=== PATIENT | female | born 1985 | race Caucasian/White ===

== ENCOUNTER 2017-07-10 19:12 | Emergency (ER) | payer OTHER ==
[~2017-07-10] VITALS: Ht 177.8 cm; Wt 101.0 kg
[~2017-07-10 19:12] MED LIST: BCPILLS PO; BUPR150T5 PO; LEVO75TA25 PO
[2017-07-10 19:19] VITALS: TEMP 37.1; Ht 177.8 cm; Wt 101.0 kg
[2017-07-10] MEDS ORDERED: SODIUM CHLORIDE 0.9% 1000ML 1,000 ML IV STA (19:47)
[2017-07-10 19:52] VITALS: O2SAT 96
[2017-07-10 20:00] LABS: BASO % 0.2 %; BASO ABS # 0.02 K/uL (0-0.2); COMPLETE YES; EOS % 0.5 %; HEMATOCRIT 41.6 % (37-47); IG% 0.4 %; LYMPH % 29.3 %; LYMPH ABS # 2.47 K/uL (1.2-3.4); MEAN CELL VOLUME 97.9 fL (80-100); MEAN CORPUSCULAR HEMOGLOBIN 30.6 pg (25-34); MEAN CORPUSCULAR HGB CONC 31.3 g/dl (32-36); MEAN PLATELET VOLUME 8.8 fL (7.4-10.4); MONO % 6.8 %; NEUT % 62.8 %; PLATELET COUNT 271 K/uL (130-400); RED BLOOD COUNT 4.25 M/uL (4.2-5.4); WHITE BLOOD COUNT 8.42 K/uL (4.8-10.8)
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
[2017-07-10 20:12] LABS: BUN/CREATININE RATIO 13.4 (10-20); CALCIUM 8.9 mg/dl (8.5-10.1); CREATININE 1.1 mg/dl (0.60-1.20); MAGNESIUM 2.1 mg/dl (1.8-2.4); POTASSIUM 3.6 mmol/L (3.5-5.1)
[2017-07-10 20:13] LABS: INR 0.9 (0.9-1.1); PARTIAL THROMBOPLASTIN RATIO 0.9; PROTHROMBIN TIME (PATIENT) 10.1 SECONDS (9.0-12.0)
--- NOTE | 2017-07-10 20:18 | DIAGNOSTIC IMAGING REPORT ---
CT HEAD WITHOUT CONTRAST (CT) CLINICAL HISTORY: Seizure COMPARISON STUDY: No previous studies for comparison. TECHNIQUE: Axial CT of the brain is performed from the vertex to the skull base. IV contrast was not administered for this examination. A dose lowering technique was utilized adhering to the principles of ALARA. CT DOSE: 537.48 mGy.cm FINDINGS: No intra or extra-axial mass lesions are visualized. There is no CT evidence of acute cortical infarction. There is no evidence of midline shift. There is no acute hemorrhage. No calvarial fractures are visualized. There are patchy white matter hypodensities likely on a small vessel basis. There is no evidence of pathologic ventricular dilatation. There is no evidence of acute sinusitis There are mildly prominent sulci in the frontal region as well as within the cerebellum. Minor early atrophic changes cannot be excluded. IMPRESSION: No acute intracranial findings Electronically signed by: Michael Malik M.D. 07/10/2017 8:16 PM Dictated Date/Time: 07/10/2017 8:15 PM
[2017-07-10 20:28] LABS: PHOSPHORUS 2.6 mg/dl (2.5-4.9); THYROID STIMULATING HORMONE 13.3 uIu/ml (0.300-4.500)
[2017-07-10 20:39] VITALS: BP 135/94; O2SAT 96
[2017-07-10 20:55] LABS: URINE APPEARANCE CLEAR (CLEAR); URINE BILIRUBIN NEG (NEG); URINE COLOR YELLOW; URINE EPITHELIAL CELL AUTO >30 /lpf (0-5); URINE NITRITE NEG (NEG); URINE PH 5.5 (4.5-7.5); UROBILINOGEN NEG (NEG)
[2017-07-10 20:56] LABS: MANUAL MICROSCOPIC REQUIRED? NO; REVIEW REQ? NO
[2017-07-10 21:06] VITALS: PULSE 79
[2017-08-07] MEDS ORDERED: AMT50 PO (15:16)
== END 2017-07-10 21:10 | disposition home or self-care (01) ==
LOC: EDBD 19:12 → C.EDA 19:14
DX: R56.9 Unspecified convulsions (principal); C41.9 Malignant neoplasm of bone and articular cartilage, unspecified; E05.90 Thyrotoxicosis, unspecified without thyrotoxic crisis or storm; Z90.89 Acquired absence of other organs; Z98.890 Other specified postprocedural states; Z87.891 Personal history of nicotine dependence; Z79.899 Other long term (current) drug therapy; G56.82 Other specified mononeuropathies of left upper limb; F32.9 Major depressive disorder, single episode, unspecified; F41.9 Anxiety disorder, unspecified; F10.10 Alcohol abuse, uncomplicated

== ENCOUNTER 2017-10-24 01:13 | Emergency (ER) | payer OTHER ==
[~2017-10-24] VITALS: Ht 177.8 cm; Wt 102.3 kg
[~2017-10-24 01:13] MED LIST changes: +DULO-24 PO
[2017-10-24 01:16] VITALS: TEMP 36.7; Ht 177.8 cm; Wt 102.3 kg
[2017-10-24] MEDS ORDERED: ONDANSETRON INJ 2 MG/ML 2 ML VIAL IV STA ×2 (01:43→03:00)
[2017-10-24] MEDS ORDERED: SODIUM CHLORIDE 0.9% 1000ML 1,000 ML IV STA ×2 (01:43→03:06)
--- NOTE | 2017-10-24 02:02 | EMERGENCY ROOM VISIT NOTE ---
History First contact with patient: : Chief Complaint: VOMITING Stated Complaint: VOMITING,DIARRHEA - UNDERGOING CHEMO History of Present Illness The patient is a 32 year old female who presents to the Emergency Room with complaints of nausea, vomiting and diarrhea. The patient reports she has had vomiting and diarrhea for the past 2 days. She has a history of Quinn sarcoma and currently is receiving chemotherapy. She states she received chemotherapy last week, and the week following her treatment is typically when she becomes ill. She has been unable to keep anything down to eat or drink. She denies any abdominal pain. She denies any sore throat, cough, nasal congestion or fevers. Her oncologist is located in [place]. She does report she has some Compazine at home which she tried but did not help her nausea. Review of Systems A complete 10 point review of systems was reviewed with the patient with pertinent positives and negatives as per history of present illness. All else were negative. Past Medical/Surgical History Medical Problems: (1) Quinn's sarcoma of bone (2) Left Hand Surgery (3) Lung biopsy (4) Tonsillectomy Social History Smoking Status: Former Smoker Alcohol Use: none Marital Status: single Housing Status: lives with significant other Occupation Status: employed Current/Historical Medications Scheduled Duloxetine Hcl (Cymbalta), 60 MG PO DAILY Irinotecan Hcl (Irinotecan), IV UD Levonorgestrel & Eth Estradiol (Falmina), 1 TAB PO DAILY Levothyroxine Sodium (Levothyroxine Sodium), 88 MCG PO DAILY Ondasetron Odt (Zofran Odt), 4 MG SL Q6H Temozolomide (Temozolomide), 200 MG PO DAILY X 5DAYS/UD Vincristine Sulfate (Vincristine Sulfate), IV UD Scheduled PRN Benzonatate (Tessalon Perles), 200 MG PO Q8 PRN for Cough Diphenoxylate/Atropine (Lomotil), 2 TAB PO Q4H PRN for Diarrhea Loperamide HCl (Loperamide HCl), 2 MG PO Q4H PRN for Diarrhea Oxycodone Ir (Roxicodone Ir), 1-2 TAB PO Q6H PRN for Severe Pain Physical Exam Vital Signs Date Time Temp Pulse Resp B/P (MAP) Pulse Ox O2 Delivery O2 Flow Rate FiO2 10/24/17 05:59 82 16 116/73 98 10/24/17 04:49 90 16 151/81 97 Room Air 12/29/17 02:59 82 20 111/74 96 Room Air 10/24/17 01:16 36.7 104 18 134/76 97 Room Air Physical Exam VITALS: Vitals are noted on the nurse's note and reviewed by myself. Vital signs stable. GENERAL: This is a 32-year-old female, in no acute distress, nondiaphoretic, well-developed well-nourished. SKIN: The skin was without rashes. EARS: External auditory canals clear, tympanic membranes pearly kumar without erythema or effusion bilaterally. EYES: Pupils equal round and reactive to light and accommodation. MOUTH: Mucous membranes moist. Tonsils are not enlarged. Pharynx without erythema or exudate. HEART: Regular rate and rhythm without murmurs gallops or rubs. LUNGS: Clear to auscultation bilaterally without wheezes, rales or rhonchi. No retractions or accessory muscle use. ABDOMEN: Positive bowel sounds x 4. Soft, nontender to palpation. NEURO: Patient was alert and oriented to person place and time. Medical Decision & Procedures Laboratory Results 10/24/17 02:10 Red Blood Count 3.92, Mean Corpuscular Volume 91.6, Mean Corpuscular Hemoglobin 31.6, Mean Corpuscular Hemoglobin Concent 34.5, Mean Platelet Volume 8.8, Neutrophils (%) (Auto) 45.7, Lymphocytes (%) (Auto) 39.0, Monocytes (%) (Auto) 9.8, Eosinophils (%) (Auto) 5.5, Basophils (%) (Auto) 0.0, Neutrophils # (Auto) 1.16, Lymphocytes # (Auto) 0.99, Monocytes # (Auto) 0.25, Eosinophils # (Auto) 0.14, Basophils # (Auto) 0.00 10/24/17 02:10 Test 10/24/17 02:10 10/24/17 02:20 10/24/17 03:00 White Blood Count 2.54 K/uL (4.8-10.8) Red Blood Count 3.92 M/uL (4.2-5.4) Hemoglobin 12.4 g/dL (12.0-16.0) Hematocrit 35.9 % (37-47) Mean Corpuscular Volume 91.6 fL (80-100) Mean Corpuscular Hemoglobin 31.6 pg (25-34) Mean Corpuscular Hemoglobin Concent 34.5 g/dl (32-36) Platelet Count 185 K/uL (130-400) Mean Platelet Volume 8.8 fL (7.4-10.4) Neutrophils (%) (Auto) 45.7 % Lymphocytes (%) (Auto) 39.0 % Monocytes (%) (Auto) 9.8 % Eosinophils (%) (Auto) 5.5 % Basophils (%) (Auto) 0.0 % Neutrophils # (Auto) 1.16 K/uL (1.4-6.5) Lymphocytes # (Auto) 0.99 K/uL (1.2-3.4) Monocytes # (Auto) 0.25 K/uL (0.11-0.59) Eosinophils # (Auto) 0.14 K/uL (0-0.5) Basophils # (Auto) 0.00 K/uL (0-0.2) RDW Standard Deviation 42.2 fL (36.4-46.3) RDW Coefficient of Variation 12.8 % (11.5-14.5) Immature Granulocyte % (Auto) 0.0 % Immature Granulocyte # (Auto) 0.00 K/uL (0.00-0.02) Anion Gap 7.0 mmol/L (3-11) Est Creatinine Clear Calc Drug Dose 131.5 ml/min Estimated GFR () 113.0 Estimated GFR (Non- 97.5 BUN/Creatinine Ratio 6.8 (10-20) Calcium Level 8.9 mg/dl (8.5-10.1) Total Bilirubin 0.4 mg/dl (0.2-1) Aspartate Amino Transf (AST/SGOT) 53 U/L (15-37) Alanine Aminotransferase (ALT/SGPT) 115 U/L (12-78) Alkaline Phosphatase 119 U/L (45-117) Total Protein 7.4 gm/dl (6.4-8.2) Albumin 3.8 gm/dl (3.4-5.0) Globulin 3.6 gm/dl (2.5-4.0) Albumin/Globulin Ratio 1.1 (0.9-2) Lipase 88 U/L (73-393) Urine Color DK YELLOW Urine Appearance CLOUDY (CLEAR) Urine pH 5.0 (4.5-7.5) Urine Specific [place] 1.029 (1.000-1.030) Urine Protein TRACE (NEG) Urine Glucose (UA) NEG (NEG) Urine Ketones 3+ (NEG) Urine Occult Blood 3+ (NEG) Urine Nitrite NEG (NEG) Urine Bilirubin NEG (NEG) Urine Urobilinogen NEG (NEG) Urine Leukocyte Esterase NEG (NEG) Urine WBC (Auto) 1-5 /hpf (0-5) Urine RBC (Auto) 0-4 /hpf (0-4) Urine Hyaline Casts (Auto) 0 /lpf (0-5) Urine Epithelial Cells (Auto) >30 /lpf (0-5) Urine Bacteria (Auto) 1+ (NEG) Urine Crystals CALCIUM OXALATE (NONE Urine Mucus PRESENT (NONE PRSENT) Urine Test NEG (NEG) Influenza Type A Antigen Neg for Influ A (NEG) Influenza Type B Antigen Neg for Influ B (NEG) Medications Administered Medications (Trade) Dose Ordered Sig/Emily Route Start Time Stop Time Status Last Admin Dose Admin Sodium Chloride 1,000 ml @ 999 mls/hr Q1H1M STAT IV 10/24/17 01:43 10/24/17 02:43 DC 10/24/17 02:16 999 MLS/HR Ondansetron HCl (Zofran Inj) 4 mg NOW STAT IV 10/24/17 01:43 10/24/17 01:44 DC 10/24/17 02:16 4 MG Ondansetron HCl (Zofran Inj) 4 mg NOW STAT IV 10/24/17 03:00 10/24/17 03:01 DC 10/24/17 03:04 4 MG Sodium Chloride 1,000 ml @ 999 mls/hr Q1H1M STAT IV 10/24/17 03:06 10/24/17 04:06 DC 10/24/17 03:39 999 MLS/HR Prochlorperazine Edisylate (Compazine Inj) 10 mg NOW STAT IV 10/24/17 03:41 10/24/17 03:42 DC 10/24/17 03:52 10 MG Lorazepam (Ativan Inj) 1 mg NOW STAT IV 10/24/17 04:56 10/24/17 04:57 DC 10/24/17 05:02 1 MG ED Course The patient was evaluated as above. Labs were drawn and IV access was obtained. Patient was medicated with 2 L NSS and 4 mg Zofran. Patient was medicated with 4 mg Zofran. Patient was medicated with 10 mg Compazine. Patient was evaluated and was able to tolerate some sips of water, but remained nauseous. 1 mg Ativan was ordered. Patient was reevaluated and felt much better. She was ready for discharge. Discharge instructions were reviewed with the patient. The patient verbalized understanding of my assessment and treatment plan and was discharged home in good condition. Medical Decision Differential diagnosis includes gastroenteritis, chemotherapy side effects, bowel obstruction, C. difficile diarrhea, among others. The patient is a 32-year-old female with PMHx Quinn's sarcoma currently on chemotherapy who presents today complaining of vomiting and diarrhea. Labs revealed slight leukopenia and mild elevation of LFTs. Patient did have a copy of outside labs and these findings appear to be baseline. Patient has no tenderness on abdominal exam.m She is afebrile. Symptoms may be due to side effects of chemotherapy or a viral gastroenteritis. She was treated with multiple rounds of antiemetics with relief of symptoms. She was hydrated with 2 L NSS. She will follow up with her oncologist and return for any worsening or new/concerning symptoms. She verbalized her understand and was discharged home in good condition. The patient was independently evaluated by Dr. Pandya, ED attending physician, who agreed with my assessment and treatment plan. Medication Reconcilliation Current Medication List: was personally reviewed by me Blood Pressure Screening Patient's blood pressure: Normal blood pressure Impression Primary Impression: Nausea, vomiting, and diarrhea Departure Information Dispostion Home / Self-Care Condition GOOD Prescriptions Ondasetron Odt (ZOFRAN ODT) 4 Mg Tab 4 MG SL Q6H for Nausea, #20 TAB Prov: Hilary Reed ., JASON 10/24/17 Referrals Dandy Palmer, D.O. (PCP) Patient Instructions My [facility] Additional Instructions You have been prescribed Zofran to be used for any nausea or vomiting. Take as prescribed. Continue to take small sips of fluids to stay hydrated. Call your oncologist today to schedule follow-up/repeat labs. Return to the emergency department with worsening vomiting, fevers, or any other new/concerning symptoms.
[2017-10-24 02:25] LABS: EOS % 5.5 %; EOS ABS # 0.14 K/uL (0-0.5); HEMATOCRIT 35.9 % (37-47); HEMOGLOBIN 12.4 g/dL (12.0-16.0); LYMPH ABS # 0.99 K/uL (1.2-3.4); MEAN CELL VOLUME 91.6 fL (80-100); MEAN CORPUSCULAR HEMOGLOBIN 31.6 pg (25-34); MEAN CORPUSCULAR HGB CONC 34.5 g/dl (32-36); MEAN PLATELET VOLUME 8.8 fL (7.4-10.4); MONO % 9.8 %; MONO ABS # 0.25 K/uL (0.11-0.59); NEUT % 45.7 %; NEUT ABS # 1.16 K/uL (1.4-6.5); PLATELET COUNT 185 K/uL (130-400); RED CELL DISTRIBUTION WIDTH CV 12.8 % (11.5-14.5); RED CELL DISTRIBUTION WIDTH SD 42.2 fL (36.4-46.3); WHITE BLOOD COUNT 2.54 K/uL (4.8-10.8)
[2017-10-24] MEDS ORDERED: DULO60CA44 PO (02:30)
[2017-10-24] MEDS ORDERED: BENZ100C84 PO (02:32)
[2017-10-24] MEDS ORDERED: OXYC-90 PO (02:33)
[2017-10-24] MEDS ORDERED: LEVO88TA3 PO (02:34)
[2017-10-24] MEDS ORDERED: DIPH-416 PO (02:36)
[2017-10-24] MEDS ORDERED: TEMO1CAP17 PO (02:38)
[2017-10-24] MEDS ORDERED: [UNRECOGNIZED DRUG - CODE] IV (02:40)
[2017-10-24] MEDS ORDERED: VNCI1 IV (02:42)
[2017-10-24] MEDS ORDERED: IMD2 PO (02:44)
[2017-10-24] MEDS ORDERED: LEVO-223 PO (02:46)
[2017-10-24 02:48] LABS: ALBUMIN 3.8 gm/dl (3.4-5.0); CALCIUM 8.9 mg/dl (8.5-10.1); CREATININE 0.81 mg/dl (0.60-1.20); POTASSIUM 3.2 mmol/L (3.5-5.1)
[2017-10-24 02:51] LABS: TOTAL PROTEIN 7.4 gm/dl (6.4-8.2)
[2017-10-24 03:35] LABS: INFLUENZA B ANTIGEN Neg for Influ B (NEG)
[2017-10-24] MEDS ORDERED: PROCHLORPERAZINE 5 MG/ML 2 ML VIAL IV STA (03:41)
[2017-10-24] MEDS ORDERED: LORAZEPAM 2 MG/ML 1 ML VIAL IV STA (04:56)
[2017-10-24] MEDS ORDERED: ONDA4TAB10 SL (05:42)
--- NOTE | 2017-10-24 05:43 | EMERGENCY ROOM VISIT NOTE ---
ED Visit Note First contact with patient: 01:29 I have personally seen and evaluated the patient with the PA. I agree with the diagnosis and management decisions and have been personally involved in the case. Please see Hilary Reed PA-C's notes for further details of the history, physical and visit.
[2017-10-24 05:59] VITALS: BP 116/73; PULSE 82; O2SAT 98
[2017-11-18] MEDS ORDERED: PROC10TA PO (13:26)
[2017-11-20] MEDS ORDERED: CEFP200T14 PO (10:32)
[2017-11-20] MEDS ORDERED: AZIT500T PO (10:32)
[2017-11-20] MEDS ORDERED: DXM/4 PO ×2 (10:32→10:51)
[2017-11-20] MEDS ORDERED: CEFD300C2 PO (10:51)
[2017-11-27] MEDS ORDERED: OXYC-90 PO (13:18)
[2018-01-15] MEDS ORDERED: RIVA1TAB4 PO ×2 (09:59)
[2018-01-15] MEDS ORDERED: CYCL10TA6 PO (10:01)
[2018-01-16] MEDS ORDERED: LEVO1TAB33 PO (13:44)
[2018-01-29] MEDS ORDERED: HYDR2TAB48 PO (11:46)
[2018-01-29] MEDS ORDERED: OXYC-90 PO (17:12)
[2018-02-27] MEDS ORDERED: CEFA500C2 PO (09:59)
== END 2017-10-24 06:01 | disposition home or self-care (01) ==
LOC: C.EDB 01:15
DX: R11.2 Nausea with vomiting, unspecified (principal); R19.7 Diarrhea, unspecified; D16.9 Benign neoplasm of bone and articular cartilage, unspecified; Z87.891 Personal history of nicotine dependence

== ENCOUNTER 2017-11-18 10:56 | Inpatient (IN) | payer OTHER ==
[~2017-11-18] VITALS: Ht 177.8 cm; Wt 100.7 kg
[~2017-11-18 10:56] MED LIST changes: -BCPILLS PO; +BENZ100C84 PO; -BUPR150T5 PO; +DIPH-416 PO; -DULO-24 PO; +DULO60CA44 PO; +IMD2 PO; +LEVO-223 PO; -LEVO75TA25 PO; +LEVO88TA3 PO; +ONDA4TAB10 SL; +OXYC1TAB3 PO; +TEMO1CAP17 PO; +VNCI1 IV; +[UNRECOGNIZED DRUG - CODE] IV
[2017-11-18] MEDS ORDERED: SODIUM CHLORIDE 0.9% 1000ML 1,000 ML IV STA (12:10)
[2017-11-18] MEDS ORDERED: METHYLPREDNISOLONE 125 MG VIAL IV STA (12:10)
[2017-11-18] MEDS ORDERED: ALBUT/IPRATROP 3MG/0.5MG NEB 3 ML VIAL INH STA ×2 (12:10→12:56)
--- NOTE | 2017-11-18 12:27 | EMERGENCY ROOM VISIT NOTE ---
History Report prepared by Skyler: Charles Edwards Under the Supervision of: Dr. Brett Turner M.D. First contact with patient: 12:04 Chief Complaint: FLU LIKE SX Stated Complaint: FLU SX, COUGH,FEVER,SOB,WEAKNESS SENT FROM History of Present Illness The patient is a 32 year old female who presents to the Emergency Room with complaints of worsening flu like symptoms for the past five days. The patient notes that she also has body aches and is sore to the touch. She notes that yesterday and today she was wheezing, and she states that she visited [facility] internal medicine today, and they gave her a breathing treatment and was put on oxygen because her oxygen saturation was low mid 80s on RA, and she is not on oxygen at home. She is additionally complaining of fever up to 100.8 this morning, weakness, and shortness of breath. The patient has a history of Quinn Sarcoma, and she had her last treatment of chemo from November 03-, and she is getting more next week. The patient denies any abdominal pain, nausea, vomiting, loss of consciousness, pain with urination, history of asthma, and using any blood thinners. She notes that she does have some diarrhea due to the chemotherapy. She is currently on vincristine, 10 acetazolamide, and irinotecan. The patient's CBC on the showed a hemoglobin of 12.2, white blood cell count of 12.9, hematocrit of 36.3, platelet level of 169, metabolic profile within normal limits, and potassium of 3.3. Source of History: patient Onset: five days ago Position: other (global) Quality: other (flu like symptoms) Timing: worsening Associated Symptoms: + fevers, + cough, No LOC, No nausea, No vomiting, No abdominal pain, No urinary symptoms Note: Associated symptoms: Body aches Review of Systems See HPI for pertinent positives and negatives. A total of ten systems were reviewed and were otherwise negative. Past Medical & Surgical Medical Problems: (1) Quinn's sarcoma of bone (2) Fever (3) HYPOXIA (4) Left Hand Surgery (5) Lung biopsy (6) Tonsillectomy Social History Smoking Status: Former Smoker Alcohol Use: none Marital Status: single Housing Status: lives with significant other Occupation Status: employed Current/Historical Medications Scheduled Duloxetine Hcl (Cymbalta), 60 MG PO DAILY Irinotecan Hcl (Irinotecan), IV UD Levonorgestrel & Eth Estradiol (Falmina), 1 TAB PO DAILY Levothyroxine Sodium (Levothyroxine Sodium), 88 MCG PO DAILY Ondasetron Odt (Zofran Odt), 4 MG SL Q6H Temozolomide (Temozolomide), 200 MG PO DAILY X 5DAYS/UD Vincristine Sulfate (Vincristine Sulfate), IV UD Scheduled PRN Benzonatate (Tessalon Perles), 200 MG PO Q8 PRN for Cough Diphenoxylate/Atropine (Lomotil), 2 TAB PO Q4H PRN for Diarrhea Loperamide HCl (Loperamide HCl), 2 MG PO Q4H PRN for Diarrhea Prochlorperazine Maleate (Compazine), 10 MG PO Q4H PRN for Nausea Allergies Coded Allergies: Sulfa Antibiotics (Verified Allergy, Unknown, UNKNOWN, 11/18/17) Physical Exam Vital Signs Date Time Temp Pulse Resp B/P (MAP) Pulse Ox O2 Delivery O2 Flow Rate FiO2 11/18/17 18:21 107 20 142/73 97 Nasal Cannula 4.0 11/18/17 17:04 104 20 105/70 95 Nasal Cannula 4.0 11/18/17 16:31 104 11/18/17 13:34 36.7 114 20 129/75 93 Nasal Cannula 2.0 11/18/17 13:05 84 Room Air 11/18/17 12:27 105 11/18/17 12:20 88 Room Air 11/18/17 11:13 37.3 123 18 121/68 95 Physical Exam Physical Exam GENERAL: She is oriented to person, place, and time. She appears well- developed and well-nourished. She does not appear distressed. ____ HENT: Exam performed. Head: Normocephalic and atraumatic. Right Ear: External ear normal. No mastoid tenderness. Left Ear: External ear normal. No mastoid tenderness. Mouth/Throat: The oropharynx is clear and moist. No trismus in the jaw. No dental abscesses or uvula swelling. No oropharyngeal exudate or tonsillar abscesses. ____ EYES: Conjunctivae and EOM are normal. Pupils are equal, round, and reactive to light. Right eye exhibits no discharge. Left eye exhibits no discharge. No scleral icterus. ____ NECK: Normal range of motion. Neck supple. No JVD present. No spinous process tenderness present. No carotid bruit present. No rigidity. No tracheal deviation and normal range of motion present. No Brudzinski's sign and no Kernig 's sign noted. ____ CV: Tachycardic rate, regular rhythm, normal heart sounds and intact distal pulses. There is no peripheral edema. Palpable radial pulses bue. ____ PULM/CHEST: Diffuse expiratory wheezes bilaterally. Effort normal. No respiratory distress. No stridor. She has no rales. ABD: The abdomen is soft. Bowel sounds are normal. She has no distension. No mass is present. There is no tenderness. There is no rebound, no guarding, no Gusman's sign and no tenderness at McBurney's point. Rovsig negative MUSC/SKEL: Normal range of motion. There is no peripheral edema, tenderness or deformity. LYMPH: No cervical adenopathy. ____ NEURO: She is alert and oriented to person, place, and time. She has normal strength. No cranial nerve deficit or sensory deficit. Coordination and gait normal. GCS eye subscore is 4. GCS verbal subscore is 5. GCS motor subscore is 6. cerbellar tests wnl. ____ SKIN: Skin is warm and dry. She is not diaphoretic. ____ PSYCH: She has a normal mood and affect. Her behavior is normal. Judgment and thought content normal. ____ Medical Decision & Procedures ER Provider Diagnostic Interpretation: Radiology results as stated below per my review and radiologist interpretation: CHEST 2 VIEWS ROUTINE HISTORY: 32 years-old Female sob wheezing cough febril on chemo acute shortness of breath with wheezing and cough COMPARISON: Chest radiograph 05/20/2015, PET CT 08/20/2015 TECHNIQUE: PA and lateral views of the chest FINDINGS: Cardiac silhouette is within normal limits. Dual lumen central venous catheter the right chest wall is noted with distal tip in the region of the distal portion SVC. Left lung is clear. No pneumothorax. Postoperative changes of the right chest wall are noted with surgical suture material projecting over the right lung apex. Pleural thickening of the right lung apex. Cortical thickening involving ribs of the lateral right hemithorax. No definite pneumothorax or large pleural effusion. Moderate right hemidiaphragmatic elevation. IMPRESSION: 1. Postoperative changes and volume loss of the right hemithorax without pneumothorax. 2. Left lung is clear. The above report was generated using voice recognition software. It may contain grammatical, syntax or spelling errors. Electronically signed by: Jarred Rincon M.D. 11/18/2017 3:03 PM Dictated Date/Time: 11/18/2017 3:[address] ANGIOGRAPHY OF THE CHEST, PULMONARY EMBOLUS PROTOCOL CLINICAL HISTORY: Hypoxia, tachycardia, shortness of breath and fever. History of Quinn sarcoma. COMPARISON STUDY: PET/CT August 20, 2017 and chest radiograph November 18, 2017. TECHNIQUE: Following IV administration of 85 mL of Optiray-320, helical axial images of the chest were obtained utilizing the pulmonary embolus protocol. Maximal intensity projections and sagittal and coronal reformats were viewed on an independent 3D workstation. IV contrast was administered without complication. A dose lowering technique was utilized adhering to the principles of ALARA. CT DOSE: 295.09 mGy.cm FINDINGS: No central or lobar pulmonary emboli are identified. The segmental and subsegmental pulmonary arteries are suboptimally assessed due to respiratory motion artifact and suboptimal opacification. The size of the heart is normal. There is no pericardial effusion. There is no pneumothorax. There is trace left pleural fluid. Postoperative findings involving the right chest wall are noted. Right upper lobe volume loss with bronchiectasis/fibrotic change is unchanged since PET/CT of August 20, 2017. This is post therapeutic. Associated opacity is unchanged since prior PET/CT. There has been interval development of numerous tiny scattered ill-defined tree-in-bud nodules throughout the lungs which suggest a mild infectious bronchiolitis. There is no confluent consolidation. A few left lung nodules shown on PET/CT of August 20, 2017 are no longer visualized. A 1.4 cm subpleural opacity within the left lower lobe shown on image 48 of 99 is similar to prior PET/CT. This was not FDG avid. Postoperative findings involving the right chest wall with resection of portions of several ribs are again noted. Previously described right lateral pleural FDG avid mass shown on PET/CT of August 20, 2017 has significantly decreased in size. This now measures 1.1 cm. It previously measured 3.6 cm. There has been significant interval increase in exuberant periosteal reaction/cortical thickening of the lateral right sixth rib with associated pathologic fracture. Areas of sclerosis within the C7, T6 and T11 vertebral bodies are similar to prior PET/CT. IMPRESSION: 1. No central or lobar pulmonary emboli identified. Segmental and subsegmental pulmonary arteries suboptimally assessed due to respiratory motion and suboptimal opacification. 2. Scattered ill-defined tree-in-bud nodules within the lungs which are new since PET/CT of August 20, 2017 and suggest an infectious bronchiolitis. 3. Significant interval decrease in size of the right lateral pleural FDG avid mass shown on PET/CT of August 20, 2017. This represents a treatment response. Significant interval increase in exuberant periosteal thickening/reaction of the lateral right sixth rib with associated fracture. This is worrisome for a pathologic fracture with tumor involvement however post therapeutic change could appear similar and should be assessed on subsequent imaging studies. 4. Nonvisualization of several left lung nodules which were shown on PET/CT of August 20, 2017. 5. Postoperative findings within the right chest wall, as described above, which are similar to prior PET/CT. Electronically signed by: Castro Hammond M.D. 11/18/2017 6:25 PM Dictated Date/Time: 11/18/2017 6:04 PM Laboratory Results 11/18/17 14:10 Red Blood Count 3.74, Mean Corpuscular Volume 93.6, Mean Corpuscular Hemoglobin 31.8, Mean Corpuscular Hemoglobin Concent 34.0, Mean Platelet Volume 8.9, Neutrophils (%) (Auto) 52.8, Lymphocytes (%) (Auto) 30.9, Monocytes (%) (Auto) 14.9, Eosinophils (%) (Auto) 1.1, Basophils (%) (Auto) 0.3, Neutrophils # (Auto ) 1.98, Lymphocytes # (Auto) 1.16, Monocytes # (Auto) 0.56, Eosinophils # (Auto ) 0.04, Basophils # (Auto) 0.01 11/18/17 14:10 Test 11/18/17 12:20 11/18/17 13:00 11/18/17 14:10 Influenza Type A Antigen Neg for Influ A (NEG) Influenza Type B Antigen Neg for Influ B (NEG) Urine Color YELLOW Urine Appearance CLEAR (CLEAR) Urine pH 6.5 (4.5-7.5) Urine Specific [place] 1.005 (1.000-1.030) Urine Protein NEG (NEG) Urine Glucose (UA) NEG (NEG) Urine Ketones NEG (NEG) Urine Occult Blood NEG (NEG) Urine Nitrite NEG (NEG) Urine Bilirubin NEG (NEG) Urine Urobilinogen NEG (NEG) Urine Leukocyte Esterase NEG (NEG) White Blood Count 3.75 K/uL (4.8-10.8) Red Blood Count 3.74 M/uL (4.2-5.4) Hemoglobin 11.9 g/dL (12.0-16.0) Hematocrit 35.0 % (37-47) Mean Corpuscular Volume 93.6 fL (80-100) Mean Corpuscular Hemoglobin 31.8 pg (25-34) Mean Corpuscular Hemoglobin Concent 34.0 g/dl (32-36) Platelet Count 156 K/uL (130-400) Mean Platelet Volume 8.9 fL (7.4-10.4) Neutrophils (%) (Auto) 52.8 % Lymphocytes (%) (Auto) 30.9 % Monocytes (%) (Auto) 14.9 % Eosinophils (%) (Auto) 1.1 % Basophils (%) (Auto) 0.3 % Neutrophils # (Auto) 1.98 K/uL (1.4-6.5) Lymphocytes # (Auto) 1.16 K/uL (1.2-3.4) Monocytes # (Auto) 0.56 K/uL (0.11-0.59) Eosinophils # (Auto) 0.04 K/uL (0-0.5) Basophils # (Auto) 0.01 K/uL (0-0.2) RDW Standard Deviation 49.4 fL (36.4-46.3) RDW Coefficient of Variation 14.6 % (11.5-14.5) Immature Granulocyte % (Auto) 0.0 % Immature Granulocyte # (Auto) 0.00 K/uL (0.00-0.02) Prothrombin Time 11.2 SECONDS (9.0-12.0) Prothromb Time International Ratio 1.1 (0.9-1.1) Activated Partial Thromboplast Time 27.1 SECONDS (21.0-31.0) Partial Thromboplastin Ratio 1.0 Anion Gap 8.0 mmol/L (3-11) Est Creatinine Clear Calc Drug Dose 128.1 ml/min Estimated GFR () 109.7 Estimated GFR (Non- 94.6 BUN/Creatinine Ratio 7.7 (10-20) Lactic Acid Level 1.6 mmol/L (0.4-2.0) Calcium Level 8.7 mg/dl (8.5-10.1) Magnesium Level 1.9 mg/dl (1.8-2.4) Total Bilirubin 0.3 mg/dl (0.2-1) Aspartate Amino Transf (AST/SGOT) 36 U/L (15-37) Alanine Aminotransferase (ALT/SGPT) 148 U/L (12-78) Alkaline Phosphatase 82 U/L (45-117) Total Protein 7.0 gm/dl (6.4-8.2) Albumin 3.1 gm/dl (3.4-5.0) Globulin 3.9 gm/dl (2.5-4.0) Albumin/Globulin Ratio 0.8 (0.9-2) Laboratory results reviewed by me Medications Administered Medications (Trade) Dose Ordered Sig/Emily Route Start Time Stop Time Status Last Admin Dose Admin Sodium Chloride 1,000 ml @ 999 mls/hr Q1H1M STAT IV 11/18/17 12:10 11/18/17 13:10 DC 11/18/17 14:41 999 MLS/HR Albuterol/ Ipratropium (Duoneb) 3 ml NOW STAT INH 11/18/17 12:10 11/18/17 12:15 DC 11/18/17 12:27 3 ML Methylprednisolone Sodium Succinate (Solu-Medrol IV) 125 mg NOW STAT IV 11/18/17 12:10 11/18/17 12:16 DC 11/18/17 14:23 125 MG Albuterol/ Ipratropium (Duoneb) 3 ml NOW STAT INH 11/18/17 12:56 11/18/17 12:58 DC 11/18/17 13:23 3 ML Ondansetron HCl (Zofran Inj) 4 mg STK-MED ONCE .ROUTE 11/18/17 14:23 11/18/17 14:24 DC 11/18/17 14:24 4 MG Potassium Chloride (Klor-Con M10) 40 meq NOW STAT PO 11/18/17 15:10 11/18/17 15:14 DC 11/18/17 15:33 40 MEQ Potassium Chloride 10 meq/ Prmx 100 ml @ 100 mls/hr 1515,1615 IV 11/18/17 15:15 11/18/17 17:15 DC 11/18/17 18:16 100 MLS/HR Ondansetron HCl (Zofran Inj) 4 mg STK-MED ONCE .ROUTE 11/18/17 18:06 11/18/17 18:07 DC 11/18/17 18:09 4 MG Cefepime HCl 1000 mg/Dextrose 111 ml @ 200 mls/hr ONE STAT IV 11/18/17 18:30 11/18/17 19:03 DC 11/18/17 19:21 200 MLS/HR Vancomycin HCl 1000 mg/Sodium Chloride 270 ml @ 125 mls/hr NOW STAT IV 11/18/17 18:30 11/18/17 20:39 11/18/17 19:34 125 MLS/HR ECG Indication: other (flu like symptoms) Rate (beats per minute): 111 Rhythm: sinus tachycardia Findings: no acute ischemic change, no ectopy, other (MT, QRS, and QTc are within normal limits. No ST elevation or depression.) Change: Patient's EKG interpreted by me. ED Course 1204: The patient was evaluated in room A5. A complete history and physical exam was performed. 1210: Solu-Medrol 125mg IV, DuoNeb 3ml INH, Sodium Chloride 1000 ml @ 999 mls/ hr IV 1253: On reexamination, the patient had an oxygen saturation of 88% resting on room air. She was put on oxygen via nasal cannula, and it went up to 93% with non-labored breathing. She was given a DuoNeb, and status post DuoNeb her wheezing has improved, though she is still having some wheezing. 1256: DuoNeb 3ml INH 1422: VSS. The patient is resting comfortable on oxygen. Wheezing has improved status post DuoNeb, and she will be sent to x-ray shortly. 1423: Zofran 4mg IV 1510: Potassium Chloride 40meq PO 1515: Potassium Chloride 10meq/Prmx 100ml @ 100mls/hr IV 1600: Patient's potassium was low. We'll be replaced intravenously and orally in the emergency department. Magnesium also ordered. Patient had CTA rule out PE given history of cancer and her new hypoxia. 1806: Zofran 4mg IV 1830: Vancomycin HCl 1000mg/ Sodium Chloride 270ml @ 125mls.hr IV, Cefepime HCl 1000mg/Dextrose 111ml @ 200mls/hr IV 183: The patients CT shows no PE, and there are ill-defined nodules suggesting infectious bronchiolitis, and a possible pathological fracture of rib 6 on the right. Given that the patient is currently on Chemo and having robin hypoxic, the patient will be treated empirically with broad-spectrum antibiotics for pneumonia. 183: Discussed the patient's case with Dr. Baltazar Posada Hospitalist. The patient will be evaluated for further treatment and disposition. Medical Decision The patients CT shows no PE, and there are ill-defined nodules possibly suggestive of infection. Potassium was low, magnesium within normal limits, potassium replacement emergency department. And a possible pathological fracture of rib 6 on the right. Given that the patient is currently on Chemo and having robin hypoxic, the patient will be treated empirically with broad- spectrum antibiotics for pneumonia. Medication Reconcilliation Current Medication List: was personally reviewed by me Blood Pressure Screening Patient's blood pressure: Elevated blood pressure Monitored by the hospitalist. Consults Time Called: 1830 Consulting Physician: Dr. Baltazar Liao Returned Call: [phone] Discussed the patient's case with Dr. Baltazar Liao. The patient will be evaluated for further treatment and disposition. Impression Primary Impression: Hypoxia Additional Impression: Pneumonia Critical Care I have personally spent greater than 90 minutes of critical care time in the direct management of this patient. This includes bedside care, interpretation of diagnostic studies, and testing, discussion with consultants, patient, and family members, and other required patient management activities. This 90 minutes is in excess of all separately billable procedures. Scribe Attestation The scribe's documentation has been prepared under my direction and personally reviewed by me in its entirety. I confirm that the note above accurately reflects all work, treatment, procedures, and medical decision making performed by me. The chart was completed utilizing [employer] voice recognition software. Grammatical errors, random word insertions, pronoun errors, and incomplete sentences are an occasional consequence of this system due to software limitations, ambient noise, and hardware issues. Any formal questions or concerns about the content, text, or information contained within the body of this dictation should be directly addressed to the physician for clarification. Departure Information Dispostion Being Evaluated By Hospitalist Referrals Dandy Palmer D.O. (PCP) Patient Instructions My [facility] Problem Qualifiers
[2017-11-18 12:51] LABS: INFLUENZA B ANTIGEN Neg for Influ B (NEG)
[2017-11-18] MEDS ORDERED: PROC1TAB5 PO (13:26)
[2017-11-18] MEDS ORDERED: ONDANSETRON INJ 2 MG/ML 2 ML VIAL ONE ×2 (14:23→18:06)
[2017-11-18 14:27] LABS: BASO % 0.3 %; BASO ABS # 0.01 K/uL (0-0.2); EOS % 1.1 %; EOS ABS # 0.04 K/uL (0-0.5); HEMOGLOBIN 11.9 g/dL (12.0-16.0); LYMPH % 30.9 %; LYMPH ABS # 1.16 K/uL (1.2-3.4); MEAN CELL VOLUME 93.6 fL (80-100); MEAN CORPUSCULAR HEMOGLOBIN 31.8 pg (25-34); MEAN PLATELET VOLUME 8.9 fL (7.4-10.4); MONO % 14.9 %; MONO ABS # 0.56 K/uL (0.11-0.59); NEUT % 52.8 %; NEUT ABS # 1.98 K/uL (1.4-6.5); PLATELET COUNT 156 K/uL (130-400); RED CELL DISTRIBUTION WIDTH CV 14.6 % (11.5-14.5); RED CELL DISTRIBUTION WIDTH SD 49.4 fL (36.4-46.3); WHITE BLOOD COUNT 3.75 K/uL (4.8-10.8)
[2017-11-18 14:41] LABS: INR 1.1 (0.9-1.1); PTT PATIENT 27.1 SECONDS (21.0-31.0)
[2017-11-18 14:47] LABS: ALBUMIN 3.1 gm/dl (3.4-5.0); CALCIUM 8.7 mg/dl (8.5-10.1); CREATININE 0.83 mg/dl (0.60-1.20); POTASSIUM 2.7 mmol/L (3.5-5.1)
--- NOTE | 2017-11-18 15:04 | DIAGNOSTIC IMAGING REPORT ---
CHEST 2 VIEWS ROUTINE HISTORY: 32 years-old Female sob wheezing cough febril on chemo acute shortness of breath with wheezing and cough COMPARISON: Chest radiograph 05/20/2015, PET CT 08/20/2015 TECHNIQUE: PA and lateral views of the chest FINDINGS: Cardiac silhouette is within normal limits. Dual lumen central venous catheter the right chest wall is noted with distal tip in the region of the distal portion SVC. Left lung is clear. No pneumothorax. Postoperative changes of the right chest wall are noted with surgical suture material projecting over the right lung apex. Pleural thickening of the right lung apex. Cortical thickening involving ribs of the lateral right hemithorax. No definite pneumothorax or large pleural effusion. Moderate right hemidiaphragmatic elevation. IMPRESSION: 1. Postoperative changes and volume loss of the right hemithorax without pneumothorax. 2. Left lung is clear. The above report was generated using voice recognition software. It may contain grammatical, syntax or spelling errors. Electronically signed by: Jarred Rincon M.D. 11/18/2017 3:03 PM Dictated Date/Time: 11/18/2017 3:00 PM
[2017-11-18] MEDS ORDERED: POTASSIUM CHLORIDE 10 MEQ TABCR PO STA ×2 (15:10→18:46)
[2017-11-18] MEDS ORDERED: [UNRECOGNIZED DRUG - OTHER] IV STA (15:14)
[2017-11-18] MEDS ORDERED: POTASSIUM CHLR 10MEQ / WTR IV SCH (15:15)
[2017-11-18] MEDS ORDERED: OPTIRAY 320 IV PRN (15:15)
[2017-11-18] MEDS: POTASSIUM CHLR 10MEQ / WTR IV SCH ×2 (15:15→18:16)
[2017-11-18] MEDS ORDERED: ONDANSETRON INJ 2 MG/ML 2 ML VIAL IV STA (18:06)
--- NOTE | 2017-11-18 18:26 | DIAGNOSTIC IMAGING REPORT ---
CT ANGIOGRAPHY OF THE CHEST, PULMONARY EMBOLUS PROTOCOL CLINICAL HISTORY: Hypoxia, tachycardia, shortness of breath and fever. History of Quinn sarcoma. COMPARISON STUDY: PET/CT August 20, 2017 and chest radiograph November 18, 2017. TECHNIQUE: Following IV administration of 85 mL of Optiray-320, helical axial images of the chest were obtained utilizing the pulmonary embolus protocol. Maximal intensity projections and sagittal and coronal reformats were viewed on an independent 3D workstation. IV contrast was administered without complication. A dose lowering technique was utilized adhering to the principles of ALARA. CT DOSE: 295.09 mGy.cm FINDINGS: No central or lobar pulmonary emboli are identified. The segmental and subsegmental pulmonary arteries are suboptimally assessed due to respiratory motion artifact and suboptimal opacification. The size of the heart is normal. There is no pericardial effusion. There is no pneumothorax. There is trace left pleural fluid. Postoperative findings involving the right chest wall are noted. Right upper lobe volume loss with bronchiectasis/fibrotic change is unchanged since PET/CT of August 20, 2017. This is post therapeutic. Associated opacity is unchanged since prior PET/CT. There has been interval development of numerous tiny scattered ill-defined tree-in-bud nodules throughout the lungs which suggest a mild infectious bronchiolitis. There is no confluent consolidation. A few left lung nodules shown on PET/CT of August 20, 2017 are no longer visualized. A 1.4 cm subpleural opacity within the left lower lobe shown on image 48 of 99 is similar to prior PET/CT. This was not FDG avid. Postoperative findings involving the right chest wall with resection of portions of several ribs are again noted. Previously described right lateral pleural FDG avid mass shown on PET/CT of August 20, 2017 has significantly decreased in size. This now measures 1.1 cm. It previously measured 3.6 cm. There has been significant interval increase in exuberant periosteal reaction/cortical thickening of the lateral right sixth rib with associated pathologic fracture. Areas of sclerosis within the C7, T6 and T11 vertebral bodies are similar to prior PET/CT. IMPRESSION: 1. No central or lobar pulmonary emboli identified. Segmental and subsegmental pulmonary arteries suboptimally assessed due to respiratory motion and suboptimal opacification. 2. Scattered ill-defined tree-in-bud nodules within the lungs which are new since PET/CT of August 20, 2017 and suggest an infectious bronchiolitis. 3. Significant interval decrease in size of the right lateral pleural FDG avid mass shown on PET/CT of August 20, 2017. This represents a treatment response. Significant interval increase in exuberant periosteal thickening/reaction of the lateral right sixth rib with associated fracture. This is worrisome for a pathologic fracture with tumor involvement however post therapeutic change could appear similar and should be assessed on subsequent imaging studies. 4. Nonvisualization of several left lung nodules which were shown on PET/CT of August 20, 2017. 5. Postoperative findings within the right chest wall, as described above, which are similar to prior PET/CT. Electronically signed by: Castro Hammond M.D. 11/18/2017 6:25 PM Dictated Date/Time: 11/18/2017 6:04 PM
[2017-11-18] MEDS ORDERED: CEFEPIME IV 1,000 MG in DEXTROSE 5% 100ML 100 ML IV STA (18:30)
[2017-11-18] MEDS ORDERED: VANCOMYCIN INJ 1,000 MG in SODIUM CHLORIDE 0.9% 250ML 250 ML IV STA (18:30)
[2017-11-18] MEDS ORDERED: ONDANSETRON INJ 2 MG/ML 2 ML VIAL IV PRN (18:45)
[2017-11-18] MEDS ORDERED: POLYETHYLENE (MIRALAX) 17 GM PACK PO PRN (18:45)
[2017-11-18] MEDS ORDERED: MAGNESIUM HYDROXIDE SUSP 30 ML UDC PO PRN (18:45)
[2017-11-18] MEDS ORDERED: ALUMINUM/MAGNESIUM/SIMETH (MAALOX MAX) 30 ML UDC PO PRN (18:45)
[2017-11-18] MEDS ORDERED: ACETAMINOPHEN 325 MG TAB PO PRN (18:45)
--- NOTE | 2017-11-18 19:09 | History and Physical ---
History & Physical Date & Time of Service: Nov 18, 2017 at 19:08 Chief Complaint: Flu Sx, Cough,Fever,Sob,Weakness Sent From Dr Primary Care Physician: Dandy Palmer D.O. 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 [facility] Dr Kevin -last chemo tx was on 11/03-11/07 ( IV Irinotecan/Temozolomide/ vincristine ) sent to ER for hypoxia, cough , fever Pt was seen by Dr Berny chopra at [facility] for flu like symptom -with symptom of fever , chills, productive cough with yellow mucosus , generalized body ache Her symptom started Last Friday -which has gone progressively worse started to have + wheeze since yesterday has pleuritic central chest wall , worse with taking deep breath in the clinic pt was found to be hypoxic Spo2 87 % in RA , requiring supplemental o2 tachycardic HR 122 pt was directed to ER in ER -pt was hypoxic , tachycardic CT chest with contrast shows no evidence of PE , Scattered ill-defined tree-in-bud nodules within the lungs which are new since PET/CT of August 20, 2017 and suggest an infectious bronchiolitis. Past Medical/Surgical History Medical Problems: (1) Quinn's sarcoma of bone Status: Resolved (2) Left Hand Surgery Status: Resolved (3) Lung biopsy Status: Resolved (4) Tonsillectomy Status: Resolved Social History Smoking Status: Former Smoker Marital Status: single Housing status: lives with family Occupational Status: employed Multi-Drug Resistant Organisms History of MDRO: No Allergies Coded Allergies: Sulfa Antibiotics (Verified Allergy, Unknown, UNKNOWN, 11/18/17) Home Medications Scheduled Duloxetine Hcl (Cymbalta), 60 MG PO DAILY Irinotecan Hcl (Irinotecan), IV UD Levonorgestrel & Eth Estradiol (Falmina), 1 TAB PO DAILY Levothyroxine Sodium (Levothyroxine Sodium), 88 MCG PO DAILY Ondasetron Odt (Zofran Odt), 4 MG SL Q6H Temozolomide (Temozolomide), 200 MG PO DAILY X 5DAYS/UD Vincristine Sulfate (Vincristine Sulfate), IV UD Scheduled PRN Benzonatate (Tessalon Perles), 200 MG PO Q8 PRN for Cough Diphenoxylate/Atropine (Lomotil), 2 TAB PO Q4H PRN for Diarrhea Loperamide HCl (Loperamide HCl), 2 MG PO Q4H PRN for Diarrhea Prochlorperazine Maleate (Compazine), 10 MG PO Q4H PRN for Nausea Review of Systems Constitutional: + fever, + chills, + sweats, + weakness, + fatigue, + problem reported (wheezing , body ache ) Respiratory: + cough, + sputum, + wheezing, + shortness of breath, + dyspnea on exertion Cardiovascular: + chest pain (with deep breath ) Abdomen: + diarrhea (after chemo , resolved last friday ) Musculoskeletal: + muscle pain Neurologic: + weakness Physical Exam Vital Signs Date Time Temp Pulse Resp B/P (MAP) Pulse Ox O2 Delivery O2 Flow Rate FiO2 11/18/17 18:21 107 20 142/73 97 Nasal Cannula 4.0 11/18/17 17:04 104 20 105/70 95 Nasal Cannula 4.0 11/18/17 16:31 104 11/18/17 13:34 36.7 114 20 129/75 93 Nasal Cannula 2.0 11/18/17 13:05 84 Room Air 11/18/17 12:27 105 11/18/17 12:20 88 Room Air 11/18/17 11:13 37.3 123 18 121/68 95 General Appearance: no apparent distress Head: atraumatic, + pertinent finding (loss of hair due to chemo tx ) Eyes: normal inspection, PERRL, EOMI, sclerae normal Neck: thyroid normal, no JVD, no carotid bruits, trachea midline Respiratory/Chest: + wheezing, + pertinent finding (pluritic chest pain ) Cardiovascular: + tachycardia Abdomen/GI: normal bowel sounds, non tender, soft Extremities/Musculoskelatal: normal inspection, no calf tenderness, normal capillary refill, no pedal edema Neurologic/Psych: no motor/sensory deficits, alert, normal mood/affect, oriented x 3 Skin: normal color, warm/dry, no rash Diagnostics Laboratory Results Results Past 24 Hours Test 11/18/17 12:20 11/18/17 13:00 11/18/17 14:10 Range/Units Influenza Type A Antigen Neg for Influ A NEG Influenza Type B Antigen Neg for Influ B NEG Urine Color YELLOW Urine Appearance CLEAR CLEAR Urine pH 6.5 4.5-7.5 Urine Specific Santa Claus 1.005 1.000-1.030 Urine Protein NEG NEG Urine Glucose (UA) NEG NEG Urine Ketones NEG NEG Urine Occult Blood NEG NEG Urine Nitrite NEG NEG Urine Bilirubin NEG NEG Urine Urobilinogen NEG NEG Urine Leukocyte Esterase NEG NEG White Blood Count 3.75 4.8-10.8 K/uL Red Blood Count 3.74 4.2-5.4 M/uL Hemoglobin 11.9 12.0-16.0 g/dL Hematocrit 35.0 37-47 % Mean Corpuscular Volume 93.6 80-100 fL Mean Corpuscular Hemoglobin 31.8 25-34 pg Mean Corpuscular Hemoglobin Concent 34.0 32-36 g/dl Platelet Count 156 130-400 K/uL Mean Platelet Volume 8.9 7.4-10.4 fL Neutrophils (%) (Auto) 52.8 % Lymphocytes (%) (Auto) 30.9 % Monocytes (%) (Auto) 14.9 % Eosinophils (%) (Auto) 1.1 % Basophils (%) (Auto) 0.3 % Neutrophils # (Auto) 1.98 1.4-6.5 K/uL Lymphocytes # (Auto) 1.16 1.2-3.4 K/uL Monocytes # (Auto) 0.56 0.11-0.59 K/uL Eosinophils # (Auto) 0.04 0-0.5 K/uL Basophils # (Auto) 0.01 0-0.2 K/uL RDW Standard Deviation 49.4 36.4-46.3 fL RDW Coefficient of Variation 14.6 11.5-14.5 % Immature Granulocyte % (Auto) 0.0 % Immature Granulocyte # (Auto) 0.00 0.00-0.02 K/uL Prothrombin Time 11.2 9.0-12.0 SECONDS Prothromb Time International Ratio 1.1 0.9-1.1 Activated Partial Thromboplast Time 27.1 21.0-31.0 SECONDS Partial Thromboplastin Ratio 1.0 Sodium Level 139 136-145 mmol/L Potassium Level 2.7 3.5-5.1 mmol/L Chloride Level 105 98-107 mmol/L Carbon Dioxide Level 26 21-32 mmol/L Anion Gap 8.0 3-11 mmol/L Blood Urea Nitrogen 6 7-18 mg/dl Creatinine 0.83 0.60-1.20 mg/dl Est Creatinine Clear Calc Drug Dose 128.1 ml/min Estimated GFR () 109.7 Estimated GFR (Non- 94.6 BUN/Creatinine Ratio 7.7 10-20 Random Glucose 112 70-99 mg/dl Lactic Acid Level 1.6 0.4-2.0 mmol/L Calcium Level 8.7 8.5-10.1 mg/dl Magnesium Level 1.9 1.8-2.4 mg/dl Total Bilirubin 0.3 0.2-1 mg/dl Aspartate Amino Transf (AST/SGOT) 36 15-37 U/L Alanine Aminotransferase (ALT/SGPT) 148 12-78 U/L Alkaline Phosphatase 82 45-117 U/L Total Protein 7.0 6.4-8.2 gm/dl Albumin 3.1 3.4-5.0 gm/dl Globulin 3.9 2.5-4.0 gm/dl Albumin/Globulin Ratio 0.8 0.9-2 Microbiology Results 11/18/17 Blood Culture, Received Pending 11/18/17 Blood Culture, Received Pending 11/18/17 Urine Culture, Received Pending Diagnostic Radiology CT CHEST WITH CONTRAST : IMPRESSION: 1. No central or lobar pulmonary emboli identified. Segmental and subsegmental pulmonary arteries suboptimally assessed due to respiratory motion and suboptimal opacification. 2. Scattered ill-defined tree-in-bud nodules within the lungs which are new since PET/CT of August 20, 2017 and suggest an infectious bronchiolitis. 3. Significant interval decrease in size of the right lateral pleural FDG avid mass shown on PET/CT of August 20, 2017. This represents a treatment response. Significant interval increase in exuberant periosteal thickening/reaction of the lateral right sixth rib with associated fracture. This is worrisome for a pathologic fracture with tumor involvement however post therapeutic change could appear similar and should be assessed on subsequent imaging studies. 4. Nonvisualization of several left lung nodules which were shown on PET/CT of August 20, 2017. 5. Postoperative findings within the right chest wall, as described above, which are similar to prior PET/CT. CHEST XRAY : IMPRESSION: 1. Postoperative changes and volume loss of the right hemithorax without pneumothorax. 2. Left lung is clear. EKG Vent. rate 111 BPM OR interval 126 ms QRS duration 80 ms QT/QTc 324/440 ms P-R-T axes 44 18 25 Sinus tachycardia Nonspecific T wave abnormality When compared with ECG of 20-MAY-2015 16:20, Nonspecific T wave abnormality now evident in Inferior leads T wave amplitude has decreased in Anterolateral leads Confirmed by MIKE PFEIFFER ([id number]) on 11/18/2017 6:57:17 PM Impression Assessment and Plan HYPOXIA /TACHYCARDIA /PNEUMONIA : presented with SIRS symptom -Tachycardic , tachypneic , hypoxia Ct chest negative for PE , Scattered ill-defined tree-in-bud nodules within the lungs which are new since PET/CT of August 20, 2017 and suggest an infectious bronchiolitis. Immunocompromised status -Malignancy ( Sarcoma ) on recent Chemo tx empirically started on broad spectrum Abx -Cefepime /vancomycin MRSA screen ordered Flores culture -blood culture /sputum culture ordered Abx can be adjusted depending on culture result ID eval requested WHEEZE /HYPOXIA : due to above pt denies of prior hx of Asthma but mention needed to use INH PRN after her lung resection surgery for Sarcoma given IV Solu Medrol 125 mg in ER will cont with IV steroid 40 mg Q 8hrs Xopenex/Albuterol INH cont supplemental 02 NEUTROPENIA: due to recent chemo WBC 3.75/ANC 1.98 repeat CBC with diff in AM HYPOKALEMIA : K 2.7 pt mentions of having ongoing diarrhea due to chemo for last 1 week resolved on Friday had nausea /no vomiting ordered for stool for c diff and culture pt given IV 20 Kcl /PO 40 meq K will be given IVF NSS with 20 KCL follow PRP EWINGS SARCOMA : follows at [facility] Dx on 2011 , underwent surgical resection of part of right lung and multiple ribs on rt side had relapse on 2014 -underwent chemo tx recent relapse on jul 2017 on chemo tx now at [facility] Dr Kevin -last chemo tx was on 11/03-11/07 ( IV Irinotecan/Temozolomide/vincristine ) FULL CODE DVT PROPHYLAXIS : moderate risk due to Malignancy on Lovenox DISPOSITION : expected to be discharged home when medically stable medicine follow up with Dr Palmer at [facility] Level of Care Telemetry Resuscitation Status FULL RESUSCITATION VTE Prophylaxis VTE Risk Assessment Done? Y/N: Yes Risk Level: Moderate Given or contraindicated: Enoxaparin (Lovenox)SQ Additional Copies To Mireya MACHADO M.D.
[2017-11-18] MEDS ORDERED: VANCOMYCIN CONSULT ACTIVE PRN (19:15)
[2017-11-18] MEDS ORDERED: BENZONATATE 100MG CAP PO PRN (19:15)
[2017-11-18] MEDS ORDERED: PROCHLORPERAZINE MALEATE 10 MG TAB PO PRN (19:15)
[2017-11-18] MEDS ORDERED: DIPHENOXYLATE/ATROPINE 2.5/0.025MG TAB PO PRN (19:15)
[2017-11-18] MEDS ORDERED: VANCOMYCIN INJ 1,000 MG in SODIUM CHLORIDE 0.9% 250ML 250 ML IV SCH (21:00)
[2017-11-18] MEDS ORDERED: CEFEPIME IV 1,000 MG in DEXTROSE 5% 100ML 100 ML IV SCH (21:00)
[2017-11-18] MEDS ORDERED: LEVALBUTEROL/IPRATROPIUM NEB INH SCH (21:00)
[2017-11-18 21:15] VITALS: BP 122/79; PULSE 114; TEMP 36.7; O2SAT 95; Ht 177.8 cm; Wt 100.7 kg
[2017-11-18 21:38] LABS: CALCIUM 8.7 mg/dl (8.5-10.1); CREATININE 0.84 mg/dl (0.60-1.20); POTASSIUM 3.4 mmol/L (3.5-5.1)
[2017-11-18] MEDS ORDERED: VANCOMYCIN INJ 1,500 MG in SODIUM CHLORIDE 0.9% 500ML 500 ML IV STA (21:44)
[2017-11-18] MEDS: NSS + 20MEQ KCL 1000ML 1,000 ML IV SCH (21:57)
[2017-11-18] MEDS: IPRATROPIUM BROMIDE NEB SOLN 0.02% 2.5 ML VIAL INH SCH (22:09)
[2017-11-18 22:10] VITALS: PULSE 77; O2SAT 93
[2017-11-18] MEDS: LEVALBUTEROL 1.25MG/0.5ML NEB INH SCH (22:10)
[2017-11-18] MEDS ORDERED: LOPERAMIDE HCL 2 MG CAP PO PRN (22:15)
[2017-11-18] MEDS: ENOXAPARIN 40 MG/0.4 ML SYR SC SCH ×2 (22:30→22:59)
[2017-11-18] MEDS ORDERED: POTASSIUM CHLORIDE 10 MEQ TABCR PO ONE (22:30)
[2017-11-18] MEDS: METHYLPREDNISOLONE IV 40 MG in SYRINGE 0 ML IV SCH (22:57)
[2017-11-18] MEDS: ONDANSETRON 4MG OD TAB SL SCH (22:58)
[2017-11-18 23:58] VITALS: BP 123/82; PULSE 118; TEMP 37.3; O2SAT 94
[2017-11-18 23:59] VITALS: O2SAT 94
[2017-11-19] VITALS (12 sets, daily range): BP systolic 94–137; BP diastolic 60–89; PULSE 74–118; TEMP 36.3–37.3; O2SAT 91–97
[2017-11-19] MEDS: IPRATROPIUM BROMIDE NEB SOLN 0.02% 2.5 ML VIAL INH SCH ×4 (01:55→19:36)
[2017-11-19] MEDS: LEVALBUTEROL 1.25MG/0.5ML NEB INH SCH ×4 (01:55→19:36)
[2017-11-19] MEDS: DULOXETINE HCL 60 MG CAP PO SCH ×2 (02:00→21:50)
[2017-11-19] MEDS ORDERED: NURSING VERBAL MED ORDER ONE (02:30)
[2017-11-19] MEDS ORDERED: CEFAZOLIN IV 1,000 MG in SYRINGE 0 ML IV SCH (06:00)
[2017-11-19] MEDS ORDERED: CEFEPIME IV 1,000 MG in SYRINGE 0 ML IV SCH (06:00)
[2017-11-19] MEDS: ONDANSETRON 4MG OD TAB SL SCH ×4 (06:00→22:25)
[2017-11-19] MEDS ORDERED: VANCOMYCIN INJ 1,750 MG in SODIUM CHLORIDE 0.9% 500ML 500 ML IV SCH (06:00)
[2017-11-19] MEDS: LEVOTHYROXINE 88 MCG TAB PO SCH (06:16)
[2017-11-19] MEDS: METHYLPREDNISOLONE IV 40 MG in SYRINGE 0 ML IV SCH ×2 (06:16→13:42)
[2017-11-19 06:27] LABS: HEMATOCRIT 32.9 % (37-47); HEMOGLOBIN 11.1 g/dL (12.0-16.0); MEAN CORPUSCULAR HEMOGLOBIN 31.7 pg (25-34); MEAN CORPUSCULAR HGB CONC 33.7 g/dl (32-36); MEAN PLATELET VOLUME 9.1 fL (7.4-10.4); PLATELET COUNT 160 K/uL (130-400); RED CELL DISTRIBUTION WIDTH CV 14.8 % (11.5-14.5); RED CELL DISTRIBUTION WIDTH SD 49.9 fL (36.4-46.3); WHITE BLOOD COUNT 4.73 K/uL (4.8-10.8)
[2017-11-19 06:54] LABS: CALCIUM 8.6 mg/dl (8.5-10.1); CREATININE 0.65 mg/dl (0.60-1.20); POTASSIUM 3.7 mmol/L (3.5-5.1)
[2017-11-19 07:07] LABS: BASO % 0.2 %; BASO ABS # 0.01 K/uL (0-0.2); IG# 0.01 K/uL (0.00-0.02); LYMPH % 16.9 %; MONO % 10.4 %; MONO ABS # 0.49 K/uL (0.11-0.59); NEUT % 72.3 %; NEUT ABS # 3.42 K/uL (1.4-6.5)
--- NOTE | 2017-11-19 08:45 | Clinical Documentation Query ---
CLINICAL DOCUMENTATION QUERY A 32 year old female who presents to the Emergency Room with complaints of worsening flu like symptoms for the past five days. The patient notes that she also has body aches and is sore to the touch. She notes that yesterday and today she was wheezing, and she states that she visited [facility] internal medicine today, and they gave her a breathing treatment and was put on oxygen because her oxygen saturation was low mid 80s on RA, and she is not on oxygen at home. In your clinical opinion is this patient being managed for: ( x ) Acute respiratory failure with hypoxia in the setting of pneumonia requiring treatment with O2, DuoNeb INH, and Solu-Medrol IV ( ) Not Agree ( ) Other explanation of clinical findings (Please Explain) ( ) Unable to determine (Please Define) ( ) Need to Discuss The medical record reflects the following clinical findings, treatment, and risk factors. Clinical Indicators: Hypoxia (88%), dyspnea on exertion, wheezes bilateral Treatment: O2, DuoNeb treatments, telemetry, Pulmonary consult Risk Factors: Quinn's sarcoma, chemotherapy, pneumonia Please clarify and document your clinical opinion in the progress notes and discharge summary. Terms such as "probable", "suspected", "likely", "questionable", "possible", or "still to be ruled out" are acceptable. IF IN AGREEMENT, YOU MUST DOCUMENT ABOVE DIAGNOSTIC STATEMENT IN DAILY PROGRESS NOTES AND DISCHARGE SUMMARY. This document is not part of the patient's record. Thank You, Laura Nickerson RN [phone]
[2017-11-19] MEDS ORDERED: DULOXETINE HCL 60 MG CAP PO SCH (09:00)
--- NOTE | 2017-11-19 11:48 | Progress Note ---
Progress Note Date of Service Nov 19, 2017. Progress Note ID Consult Dictated #[id number] A/P: 1. CAP -Will narrow to ctx/azithro -follow culture results -spoke with primary, will follow, thank you
--- NOTE | 2017-11-19 12:06 | INFECT. DISEASE CONSULTATION ---
DATE OF CONSULTATION: 11/19/2017 HISTORY OF PRESENT ILLNESS: This is a 32-year-old female who recently underwent chemotherapy at the [facility] for Quinn sarcoma. She completed this treatment on the . Yesterday, she was seen by her primary service for worsening shortness of breath, wheezing and productive cough. She also was found to have a room air sat of 87%. For this reason, she was sent to the hospital for further evaluation. In the ER, she did have a CAT scan, which was negative for PE, showing a decreased size in her tumor, a sixth rib fracture, which was concerning for a pathologic fracture and nodules, which were thought to be infectious in nature. She did provide a sputum culture and results of this are pending. Blood cultures are pending as well. Her flu swab was negative. Urinalysis was negative. Her white blood cell count is 4.7. She is currently on cefepime, vancomycin and IV steroids. She has been afebrile since admission to the hospital. She states her cough is significantly improved. She denies any wheezing. She previously had pleuritic chest pain, but this has resolved as well. She denies any nausea, vomiting, or diarrhea. SHE HAS ALLERGIES TO SULFA ANTIBIOTICS. She is tolerating her current antibiotics well. She did state she had minimally loose stools, but attributes this to her chemotherapy. All remaining review of systems are reviewed and are negative. PAST MEDICAL AND SURGICAL HISTORY: Significant for Quinn sarcoma of bone, left hand surgery, lung biopsy, and tonsillectomy. SOCIAL HISTORY: Significant for a history of tobacco. She denies any drug or alcohol use. ALLERGIES: INCLUDE SULFA ANTIBIOTICS. FAMILY HISTORY: Noncontributory. CURRENT MEDICATIONS: Include Cymbalta, Synthroid, cefepime, vancomycin, Atrovent, Xopenex, subQ heparin, Zofran, Lovenox, Imodium, Solu-Medrol, Tessalon Perles, Lomotil, Compazine, Tylenol, Maalox, milk of magnesia, Zofran and MiraLax. PHYSICAL EXAMINATION: VITAL SIGNS: She is afebrile, pulse 108, respiratory rate 20, blood pressure 103/69, oxygen saturation is 92% on 2 liters nasal cannula. GENERAL: She is awake, alert and oriented x3. She is in no acute distress. HEENT: Mucous membranes are moist. Extraocular muscles are intact. HEART: Regular. LUNGS: Clear. ABDOMEN: Soft. EXTREMITIES: There is no edema. SKIN: Without rash. LABORATORY STUDIES: CBC reveals a white blood cell count of 4.7, hemoglobin 11.1 and platelets are 160. Chemistry panel reveals a sodium of 139, potassium 3.7, chloride 108, bicarbonate 24, BUN 7, creatinine 0.6, glucose is 158. LFTs are normal in the Emergency Room. Urinalysis is negative. Flu swab is negative. Blood cultures are pending. Urine culture is pending. Sputum culture is pending. IMAGING: As above. ASSESSMENT AND PLAN: Pneumonia, suspected atypical versus viral in etiology. I will narrow her antibiotics for community acquired pathogens including atypicals. She would like to be discharged within the next 24 hours. We will follow along with you and recommend antibiotics for discharge if she does remain stable in the next 24 hours. Thank you for this consultation.
[2017-11-19] MEDS: NSS + 20MEQ KCL 1000ML 1,000 ML IV SCH ×2 (13:42→18:00)
[2017-11-19] MEDS: AZITHROMYCIN 250 MG TAB PO SCH (13:43)
[2017-11-19 13:50] LABS: INFLUENZA A PCR Neg for Influ A (NEG); INFLUENZA B PCR Neg for Influ B (NEG)
--- NOTE | 2017-11-19 17:31 | Pulmonary Consultation ---
History General Date of Service: Nov 19, 2017. Stated Complaint: Fever, Hypoxia HPI The patient is a 32 year old female who presents to [facility] with complaints of Fever, Hypoxia. The patient's primary care provider is Dandy Palmer D.O.. Historian: patient Onset: just prior to arrival Severity: moderate Complaint Status: improved Review of Systems Constitutional: reports: malaise, weakness Eyes: reports: no symptoms ENT: reports: no symptoms Cardiovascular: reports: no symptoms Respiratory: reports: cough, shortness of breath, wheezing Gastrointestinal: reports: no symptoms Musculoskeletal: reports: no symptoms Neurologic: reports: no symptoms Psychiatric: reports: no symptoms Social History Hx Tobacco Use In Past Year?: No Smoking Status: Never Smoker Marital status: single Housing status: lives with family Occupational Status: employed History of MDRO History of MDRO: No Allergies Coded Allergies: Sulfa Antibiotics (Verified Allergy, Unknown, UNKNOWN, 11/18/17) Current Medications Reported Home Medications Medications Dose Route/Sig Max Daily Dose Days Date Category Dose Instructions Compazine (Prochlorperazine Maleate) 10 Mg Tab 10 Mg PO Q4H PRN 11/18/17 Reported NAUSEA/VOMITING Zofran Odt (Ondansetron HCl) 4 Mg Tab 4 Mg SL Q6H 10/24/17 Rx Falmina (Levonorgestrel & Eth Estradiol) 1 Tab Tab 1 Tab PO DAILY 10/24/17 Reported Loperamide HCl 2 Mg Cap 2 Mg PO Q4H PRN 10/24/17 Reported Vincristine Sulfate 1 Mg/Ml Inj IV UD 10/24/17 Reported TAKE THIS MED IV ON FRIDAY OF CHEMO WEEK. Irinotecan (Irinotecan Hcl) 40 Mg/2 Ml Inj IV UD 10/24/17 Reported TAKE THIS MED IV FRIDAY THRU FRIDAY OF CHEMO WEEK. Temozolomide 100 Mg Cap 200 Mg PO DAILY X 5DAYS/UD 10/24/17 Reported TAKE THIS MED DAILY X 5 DAYS EVERY 3 WEEKS ON DAYS OF CHEMO. Lomotil (Diphenoxylate HCl/Atropine) Tab 2 Tab PO Q4H PRN 10/24/17 Reported Levothyroxine Sodium 88 Mcg Tab 88 Mcg PO DAILY 10/24/17 Reported Tessalon Perles (Benzonatate) 100 Mg Cap 200 Mg PO Q8 PRN 10/24/17 Reported Cymbalta (Duloxetine Hcl) 60 Mg Cap 60 Mg PO DAILY 10/24/17 Reported Physical Physical Exam Vital Signs: Date Time Temp Pulse Resp B/P (MAP) Pulse Ox O2 Delivery O2 Flow Rate FiO2 11/19/17 16:00 Room Air 2.0 Nasal Cannula 11/19/17 15:31 36.6 81 18 94/60 (71) 92 Nasal Cannula 2.0 11/19/17 14:21 74 16 91 Nasal Cannula 2.0 11/19/17 12:00 Room Air 2.0 Nasal Cannula 11/19/17 10:39 36.4 100 20 116/81 (93) 94 Nasal Cannula 2.0 11/19/17 08:00 Room Air 2.0 Nasal Cannula 11/19/17 07:21 36.8 108 20 103/69 (80) 92 Nasal Cannula 2.0 11/19/17 06:59 97 16 91 Nasal Cannula 2.0 11/19/17 04:00 94 Nasal Cannula 2.0 11/19/17 03:26 36.5 111 16 137/77 (97) 93 11/19/17 02:04 107 16 94 Nasal Cannula 2.0 11/19/17 00:01 37.3 118 20 123/82 (96) 94 Nasal Cannula 2.0 11/18/17 23:59 94 Nasal Cannula 2.0 11/18/17 23:58 37.3 118 20 123/82 (96) 94 11/18/17 22:10 77 16 93 Nasal Cannula 2.0 11/18/17 21:15 36.7 114 24 122/79 95 Nasal Cannula 2.0 11/18/17 20:51 114 20 98 11/18/17 20:36 118 22 94 11/18/17 20:21 114 95 11/18/17 20:09 97 Nasal Cannula 2.0 11/18/17 20:06 115 94 11/18/17 20:01 161/97 11/18/17 20:00 116 93 11/18/17 19:45 21 11/18/17 19:30 109 92 11/18/17 19:15 116 95 Nasal Cannula 2.0 11/18/17 19:01 145/88 11/18/17 19:00 120 19 97 11/18/17 18:45 114 29 91 Room Air 11/18/17 18:21 107 20 142/73 97 Nasal Cannula 4.0 General Appearance: NO APPARENT DISTRESS Eyes: PERRLA, EOMI Neck: NORMAL RANGE OF MOTION Respiratory: rhonchi Cardiovasular: REGULAR RATE/RHYTHM, NORMAL S1S2, NO M/G/R, NO MURMUR Upper Extremities: other (left hand braced.) Neuro: ALERT, ORIENTED x 3, NORMAL MOTOR EXAM Psychiatric: NORMAL AFFECT Diagnostics Labs Results Past 24 Hours Test 11/18/17 20:33 11/19/17 06:04 11/19/17 12:00 Range/Units Sodium Level 137 139 136-145 mmol/L Potassium Level 3.4 3.7 3.5-5.1 mmol/L Chloride Level 106 108 98-107 mmol/L Carbon Dioxide Level 23 24 21-32 mmol/L Anion Gap 9.0 7.0 3-11 mmol/L Blood Urea Nitrogen 5 7 7-18 mg/dl Creatinine 0.84 0.65 0.60-1.20 mg/dl Est Creatinine Clear Calc Drug Dose 125.5 162.6 ml/min Estimated GFR () 108.1 138.1 Estimated GFR (Non- 93.3 119.1 BUN/Creatinine Ratio 6.4 11.1 10-20 Random Glucose 199 158 70-99 mg/dl Calcium Level 8.7 8.6 8.5-10.1 mg/dl White Blood Count 4.73 4.8-10.8 K/uL Red Blood Count 3.50 4.2-5.4 M/uL Hemoglobin 11.1 12.0-16.0 g/dL Hematocrit 32.9 37-47 % Mean Corpuscular Volume 94.0 80-100 fL Mean Corpuscular Hemoglobin 31.7 25-34 pg Mean Corpuscular Hemoglobin Concent 33.7 32-36 g/dl Platelet Count 160 130-400 K/uL Mean Platelet Volume 9.1 7.4-10.4 fL Neutrophils (%) (Auto) 72.3 % Lymphocytes (%) (Auto) 16.9 % Monocytes (%) (Auto) 10.4 % Eosinophils (%) (Auto) 0.0 % Basophils (%) (Auto) 0.2 % Neutrophils # (Auto) 3.42 1.4-6.5 K/uL Lymphocytes # (Auto) 0.80 1.2-3.4 K/uL Monocytes # (Auto) 0.49 0.11-0.59 K/uL Eosinophils # (Auto) 0.00 0-0.5 K/uL Basophils # (Auto) 0.01 0-0.2 K/uL RDW Standard Deviation 49.9 36.4-46.3 fL RDW Coefficient of Variation 14.8 11.5-14.5 % Immature Granulocyte % (Auto) 0.2 % Immature Granulocyte # (Auto) 0.01 0.00-0.02 K/uL Hyposegmented Neutrophils 1+ Toxic Granulation 1+ Dohle Bodies 1+ Magnesium Level 1.9 1.8-2.4 mg/dl Influenza Type A (RT-PCR) Neg for Influ A NEG Influenza Type B (RT-PCR) Neg for Influ B NEG Microbiology Results 11/18/17 MRSA DNA Surveillance Screen - Final, Complete Specimen Negative for MRSA by DNA Probe 11/18/17 Gram Stain - Final, Resulted 11/18/17 Sputum Culture - Preliminary, Resulted MODERATE NORMAL CLAYTON Present, Final ... Radiology Interpretation: other (chest x-ray and CAT scan both were reviewed, which showed tree in bud appearance which were present vazquez bronchiolitis. These findings not necessarily found in ALIRIO however I would assume that the patient might have had ALIRIO in the past.) Impression Assessment and Plan #1 community-acquired pneumonia, agree with ceftriaxone and azithromycin. #2 Quinn's tumor treated with surgery and chemotherapy, the patient received radiation to the right side of the chest, she does have a lesion at the sixth rib with possible pathologic fracture as well. The patient apparently had also a lung biopsy. I am not sure if the lung biopsy showed mycobacteria and it which could represent only an inhaled but in active bacteria. Versus ALIRIO. #3 recent chemotherapy which makes the patient immunocompromised however the patient responded to the current antibiotics without any complications. #4 possible history of asthma although the patient could not confirm. #5 the patient has localized bronchiectasis related to previous external beam radiation resulted in traction bronchiectasis localized in the right upper lobe mainly. This can be a nidus for infection for future pneumonia as well. Plan: #1 continue ceftriaxone and azithromycin. #2 appreciate all previous notes. #3 the patient would benefit from bronchodilators given localized bronchiectasis. #4 I'm not sure about the findings of the lung biopsy in the past whether the patient has positive AFB on not. The patient was treated with INH previously. This likely does not represent active TB at all. #5 the patient completed 3 cycles of chemotherapy and she has 3 more cycles to complete her course. She should be treated for her pneumonia to complete remission prior to attempt next cycle of chemotherapy. #6 steroids can be changed to oral dexamethasone. Patient reacts poorly to prednisone with insomnia. Thank you for your kind referral, will follow.
[2017-11-19] MEDS ORDERED: CEFTRIAXONE SOD INJ 1 GM in DEXTROSE 5% ADD-VANTAGE 50ML 50 ML IV SCH (18:00)
--- NOTE | 2017-11-19 18:46 | Progress Note ---
Medicine Progress Note Date & Time of Visit: Nov 19, 2017 at 1200. Subjective -feels greatly improved since yesterday -denies pain, some diarrhea present from chemo trt, tolerating PO -cough had improved -still on O2 Objective Last 8 Hrs Date Time Temp Pulse Resp B/P (MAP) Pulse Ox O2 Delivery O2 Flow Rate FiO2 11/19/17 16:00 Room Air 2.0 Nasal Cannula 11/19/17 15:31 36.6 81 18 94/60 (71) 92 Nasal Cannula 2.0 11/19/17 14:21 74 16 91 Nasal Cannula 2.0 11/19/17 12:00 Room Air 2.0 Nasal Cannula 11/19/17 10:39 36.4 100 20 116/81 (93) 94 Nasal Cannula 2.0 Physical Exam: GEN: WNWD, in no acute distress, alert and appropriate HEENT: NC/AT, PERRL, normal sclerae, alopecia, MMM CARDIO: reg rate, S1/2 heard without m/g/r LUNGS: coarse rhonchi and rales in bilateral lower lung driver. Good air movement. ABD: soft, non-tender, non-distended, no rebound or guarding, +BS EXTREMITY: RP and DP palpable 2+ bilat, no LE swelling or edema, extremities are warm and well-perfused NEURO: CN 2-12 grossly intact MUSC: 5/5 strength throughout, no gross focal deficits SKIN: warm and dry Laboratory Results: 11/19/17 06:04 Red Blood Count 3.50, Mean Corpuscular Volume 94.0, Mean Corpuscular Hemoglobin 31.7, Mean Corpuscular Hemoglobin Concent 33.7, Mean Platelet Volume 9.1, Neutrophils (%) (Auto) 72.3, Lymphocytes (%) (Auto) 16.9, Monocytes (%) (Auto) 10.4, Eosinophils (%) (Auto) 0.0, Basophils (%) (Auto) 0.2, Neutrophils # (Auto ) 3.42, Lymphocytes # (Auto) 0.80, Monocytes # (Auto) 0.49, Eosinophils # (Auto ) 0.00, Basophils # (Auto) 0.01 11/19/17 06:04 Test 11/18/17 12:20 11/18/17 13:00 11/18/17 14:10 11/19/17 06:04 Influenza Type A Antigen Neg for Influ A (NEG) Influenza Type B Antigen Neg for Influ B (NEG) Urine Color YELLOW Urine Appearance CLEAR (CLEAR) Urine pH 6.5 (4.5-7.5) Urine Specific [place] 1.005 (1.000-1.030) Urine Protein NEG (NEG) Urine Glucose (UA) NEG (NEG) Urine Ketones NEG (NEG) Urine Occult Blood NEG (NEG) Urine Nitrite NEG (NEG) Urine Bilirubin NEG (NEG) Urine Urobilinogen NEG (NEG) Urine Leukocyte Esterase NEG (NEG) Prothrombin Time 11.2 SECONDS (9.0-12.0) Prothromb Time International Ratio 1.1 (0.9-1.1) Activated Partial Thromboplast Time 27.1 SECONDS (21.0-31.0) Partial Thromboplastin Ratio 1.0 Lactic Acid Level 1.6 mmol/L (0.4-2.0) Total Bilirubin 0.3 mg/dl (0.2-1) Aspartate Amino Transf (AST/SGOT) 36 U/L (15-37) Alanine Aminotransferase (ALT/SGPT) 148 U/L (12-78) Alkaline Phosphatase 82 U/L (45-117) Total Protein 7.0 gm/dl (6.4-8.2) Albumin 3.1 gm/dl (3.4-5.0) Globulin 3.9 gm/dl (2.5-4.0) Albumin/Globulin Ratio 0.8 (0.9-2) White Blood Count 4.73 K/uL (4.8-10.8) Red Blood Count 3.50 M/uL (4.2-5.4) Hemoglobin 11.1 g/dL (12.0-16.0) Hematocrit 32.9 % (37-47) Mean Corpuscular Volume 94.0 fL (80-100) Mean Corpuscular Hemoglobin 31.7 pg (25-34) Mean Corpuscular Hemoglobin Concent 33.7 g/dl (32-36) Platelet Count 160 K/uL (130-400) Mean Platelet Volume 9.1 fL (7.4-10.4) Neutrophils (%) (Auto) 72.3 % Lymphocytes (%) (Auto) 16.9 % Monocytes (%) (Auto) 10.4 % Eosinophils (%) (Auto) 0.0 % Basophils (%) (Auto) 0.2 % Neutrophils # (Auto) 3.42 K/uL (1.4-6.5) Lymphocytes # (Auto) 0.80 K/uL (1.2-3.4) Monocytes # (Auto) 0.49 K/uL (0.11-0.59) Eosinophils # (Auto) 0.00 K/uL (0-0.5) Basophils # (Auto) 0.01 K/uL (0-0.2) RDW Standard Deviation 49.9 fL (36.4-46.3) RDW Coefficient of Variation 14.8 % (11.5-14.5) Immature Granulocyte % (Auto) 0.2 % Immature Granulocyte # (Auto) 0.01 K/uL (0.00-0.02) Hyposegmented Neutrophils 1+ Toxic Granulation 1+ Dohle Bodies 1+ Anion Gap 7.0 mmol/L (3-11) Est Creatinine Clear Calc Drug Dose 162.6 ml/min Estimated GFR () 138.1 Estimated GFR (Non- 119.1 BUN/Creatinine Ratio 11.1 (10-20) Calcium Level 8.6 mg/dl (8.5-10.1) Magnesium Level 1.9 mg/dl (1.8-2.4) Test 11/19/17 12:00 Influenza Type A (RT-PCR) Neg for Influ A (NEG) Influenza Type B (RT-PCR) Neg for Influ B (NEG) Date/Time Source Procedure Growth Status 11/18/17 14:10 Blood Blood Culture Pending Received 11/18/17 22:00 Nasal MRSA DNA Surveillance Screen - Final Specimen Negative for MRSA by DNA Probe Complete 11/18/17 22:00 Sputum Expectorated Sputum Gram Stain - Final Resulted 11/18/17 22:00 Sputum Expectorated Sputum Sputum Culture - Preliminary MODERATE NORMAL [place]LAYTON Present, Final ... Resulted 11/18/17 13:00 Urine , Clean Catch Urine Culture - Final THREE TYPES OF ORGANISMS PRESENT, ALL... Complete Last 24 Hours Test 11/18/17 20:33 11/19/17 06:04 11/19/17 12:00 Sodium Level 137 mmol/L 139 mmol/L Potassium Level 3.4 mmol/L 3.7 mmol/L Chloride Level 106 mmol/L 108 mmol/L Carbon Dioxide Level 23 mmol/L 24 mmol/L Anion Gap 9.0 mmol/L 7.0 mmol/L Blood Urea Nitrogen 5 mg/dl 7 mg/dl Creatinine 0.84 mg/dl 0.65 mg/dl Est Creatinine Clear Calc Drug Dose 125.5 ml/min 162.6 ml/min Estimated GFR () 108.1 138.1 Estimated GFR (Non- 93.3 119.1 BUN/Creatinine Ratio 6.4 11.1 Random Glucose 199 mg/dl 158 mg/dl Calcium Level 8.7 mg/dl 8.6 mg/dl White Blood Count 4.73 K/uL Red Blood Count 3.50 M/uL Hemoglobin 11.1 g/dL Hematocrit 32.9 % Mean Corpuscular Volume 94.0 fL Mean Corpuscular Hemoglobin 31.7 pg Mean Corpuscular Hemoglobin Concent 33.7 g/dl Platelet Count 160 K/uL Mean Platelet Volume 9.1 fL Neutrophils (%) (Auto) 72.3 % Lymphocytes (%) (Auto) 16.9 % Monocytes (%) (Auto) 10.4 % Eosinophils (%) (Auto) 0.0 % Basophils (%) (Auto) 0.2 % Neutrophils # (Auto) 3.42 K/uL Lymphocytes # (Auto) 0.80 K/uL Monocytes # (Auto) 0.49 K/uL Eosinophils # (Auto) 0.00 K/uL Basophils # (Auto) 0.01 K/uL RDW Standard Deviation 49.9 fL RDW Coefficient of Variation 14.8 % Immature Granulocyte % (Auto) 0.2 % Immature Granulocyte # (Auto) 0.01 K/uL Hyposegmented Neutrophils 1+ Toxic Granulation 1+ Dohle Bodies 1+ Magnesium Level 1.9 mg/dl Influenza Type A (RT-PCR) Neg for Influ A Influenza Type B (RT-PCR) Neg for Influ B Date/Time Source Procedure Growth Status 11/18/17 22:00 Nasal MRSA DNA Surveillance Screen - Final Specimen Negative for MRSA by DNA Probe Complete 11/18/17 22:00 Sputum Expectorated Sputum Gram Stain - Final Resulted 11/18/17 22:00 Sputum Expectorated Sputum Sputum Culture - Preliminary MODERATE NORMAL [place] Present, Final ... 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 Acute hypoxic respiratory failure 2/2 community-acquired pneumonia 2/2 atypical pneumonia vs viral etiology. Pt was de-escalated to Rocephin and Azithromycin per ID and flu PCR was negative. Per Pulm specialist will cont Decadron and supportive care with oxygen, weaning as tolerated. Cont Duonebs 2. 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 Responded well to abx given overnight. 3. Hypokalemia 2/2 diarrhea 2/2 chemo side effect. replaced and now eating. 4. Diarrhea-side effect from chemo, c-diff sent. DVT proph-Lovenox Full Code dispo-likely to home tomorrow or when off the oxygen. Kell Viera DO [facility] Hospitalist Consultants: Pulm-Robyn ID-Archie Current Inpatient Medications: Current Inpatient Medications Medications (Trade) Dose Ordered Sig/Emily Route Start Time Stop Time Status Last Admin Dose Admin Ioversol (Optiray 320) 125 ml UD PRN IV 11/18/17 15:15 11/22/17 15:14 Enoxaparin Sodium (Lovenox Inj) 40 mg HS SC 11/18/17 22:30 12/18/17 22:29 Potassium Chloride/Sodium Chloride 1,000 ml @ 100 mls/hr Q10H IV 11/18/17 22:00 12/18/17 21:59 11/19/17 13:42 100 MLS/HR Acetaminophen (Tylenol Tab) 650 mg Q4H PRN PO 11/18/17 18:45 12/18/17 18:44 Al Hydrox/Mg Hydrox/Simethicone (Maalox Max Susp) 15 ml Q4H PRN PO 11/18/17 18:45 12/18/17 18:44 Magnesium Hydroxide (Milk Of Magnesia Susp) 30 ml Q12H PRN PO 11/18/17 18:45 12/18/17 18:44 Ondansetron HCl (Zofran Inj) 4 mg Q6H PRN IV 11/18/17 18:45 12/18/17 18:44 Polyethylene (Miralax Powder Packet) 17 gm DAILY PRN PO 11/18/17 18:45 12/18/17 18:44 Benzonatate (Tessalon Perles Cap) 200 mg Q8 PRN PO 11/18/17 19:15 12/18/17 19:14 Diphenoxylate HCl/ Atropine (Lomotil Tab) 2 tab Q4H PRN PO 11/18/17 19:15 12/18/17 19:14 Levothyroxine Sodium (Synthroid Tab) 88 mcg DAILYBB PO 11/19/17 06:00 12/19/17 05:59 11/19/17 06:16 88 MCG Loperamide HCl (Imodium Cap) 2 mg Q4H PRN PO 11/18/17 22:15 12/18/17 22:14 Ondansetron HCl (Zofran Odt) 4 mg Q6 SL 11/19/17 00:00 12/19/17 00:00 Prochlorperazine Maleate (Compazine Tab) 10 mg Q4H PRN PO 11/18/17 19:15 12/18/17 19:14 Methylprednisolone Sodium Succinate 40 mg/Syringe 0.64 ml @ 1.5 mls/min Q8 IV 11/18/17 22:00 12/18/17 21:59 11/19/17 13:42 1.5 MLS/MIN Ipratropium [place] (Atrovent 0.02% 0.5MG/2.5ML Neb) 0.5 mg Q6R INH 11/19/17 03:00 12/19/17 02:59 11/19/17 14:18 0.5 MG Levalbuterol (Xopenex 1.25MG/ 0.5ML Neb) 1.25 mg Q6R INH 11/19/17 03:00 12/19/17 02:59 11/19/17 14:18 1.25 MG Heparin Sodium (Porcine) (Heparin 100 Unit/ml 5ml Flush) 5 ml PRN PRN IV 11/19/17 00:45 12/19/17 00:44 Duloxetine HCl (Cymbalta Cap) 60 mg HS PO 11/19/17 21:00 12/19/17 20:59 11/19/17 02:00 60 MG Ceftriaxone Sodium 1 gm/ Dextrose 50 ml @ 100 mls/hr Q24H IV 11/19/17 18:00 11/26/17 17:59 Azithromycin (Zithromax Tab) 500 mg QAM PO 11/19/17 14:00 11/26/17 13:59 11/19/17 13:43 500 MG
[2017-11-19] MEDS: ENOXAPARIN 40 MG/0.4 ML SYR SC SCH (21:00)
[2017-11-19] MEDS ORDERED: VANCOMYCIN TROUGH ONE (21:30)
[2017-11-19] MEDS: DEXAMETHASONE 4 MG TAB PO SCH (21:51)
[2017-11-20] MEDS: IPRATROPIUM BROMIDE NEB SOLN 0.02% 2.5 ML VIAL INH SCH ×2 (01:47→07:02)
[2017-11-20] MEDS: LEVALBUTEROL 1.25MG/0.5ML NEB INH SCH ×2 (01:47→07:02)
[2017-11-20 01:50] VITALS: PULSE 70; O2SAT 97
[2017-11-20 03:31] VITALS: BP 93/61; PULSE 74; TEMP 36.4; O2SAT 94
[2017-11-20] MEDS: DEXAMETHASONE 4 MG TAB PO SCH ×2 (05:22→13:06)
[2017-11-20] MEDS: LEVOTHYROXINE 88 MCG TAB PO SCH (05:22)
[2017-11-20] MEDS: ONDANSETRON 4MG OD TAB SL SCH ×2 (05:23→12:00)
[2017-11-20 07:02] VITALS: PULSE 70; O2SAT 97
[2017-11-20] MEDS: AZITHROMYCIN 250 MG TAB PO SCH (08:11)
[2017-11-20 08:12] VITALS: BP 99/65; PULSE 72; TEMP 36.5; O2SAT 96
--- NOTE | 2017-11-20 10:01 | Progress Note ---
Subjective Date of Service: Nov 20, 2017. Subjective Pt evaluation today including: conversation w/ patient, physical exam, chart review, lab review pt seen in followup, much improved today. afebrile. tolerating abx. denies cp, cough, sob. sputum blood c diff negative. Now on RA. breathing comfortable. asking to go home. all remaining ros reviewed and are negative. Problem List Medical Problems: (1) Hypoxia Status: Acute (2) Pneumonia Status: Acute (3) Seizure Status: Acute Objective Vital Signs Date Time Temp Pulse Resp B/P (MAP) Pulse Ox O2 Delivery O2 Flow Rate FiO2 11/20/17 08:12 36.5 72 20 99/65 (76) 96 Room Air 11/20/17 08:00 Room Air 11/20/17 07:02 70 16 97 Nasal Cannula 2.0 11/20/17 04:00 Nasal Cannula 2.0 11/20/17 03:31 36.4 74 16 93/61 (72) 94 2.5 11/20/17 01:50 70 16 97 Nasal Cannula 2.0 11/19/17 23:59 Nasal Cannula 2.0 11/19/17 23:46 36.3 83 16 109/73 (85) 95 2.5 11/19/17 20:05 36.6 105 20 130/89 (103) 94 Nasal Cannula 2.0 11/19/17 20:00 Nasal Cannula 2.0 11/19/17 19:37 84 16 97 Nasal Cannula 2.0 11/19/17 16:00 Room Air 2.0 Nasal Cannula 11/19/17 15:31 36.6 81 18 94/60 (71) 92 Nasal Cannula 2.0 11/19/17 14:21 74 16 91 Nasal Cannula 2.0 11/19/17 12:00 Room Air 2.0 Nasal Cannula 11/19/17 10:39 36.4 100 20 116/81 (93) 94 Nasal Cannula 2.0 Physical Exam General Appearance: WD/WN, no apparent distress Eyes: normal inspection, EOMI Neck: supple Respiratory/Chest: lungs clear, normal breath sounds, no respiratory distress Cardiovascular: regular rate, rhythm, no edema Abdomen: non tender, soft Extremities: non-tender, no pedal edema Neurologic/Psychiatric: alert, oriented x 3 Skin: normal color Laboratory Results Item Value Date Time Gram Stain - Final Resulted 11/18/17 2200 Sputum Expectorated Sputum Blood Culture - Preliminary Resulted 11/18/17 1410 Blood NO GROWTH TO DATE. C.difficile Toxin B Gene (PCR) - Final Complete 11/19/172009 Stool No C. difficile toxin B gene detected Last 24 Hours Test 11/19/17 12:00 Influenza Type A (RT-PCR) Neg for Influ A Influenza Type B (RT-PCR) Neg for Influ B Assessment and Plan (1) CAP (community acquired pneumonia) Assessment & Plan: continue current abx, when stable for d/c would complete 7 day course of azithro 500mg daily
[2017-11-20] MEDS ORDERED: DXM/4 PO ×2 (10:32→10:51)
[2017-11-20] MEDS ORDERED: CEFP200T14 PO (10:32)
[2017-11-20] MEDS ORDERED: AZIT500T PO (10:32)
--- NOTE | 2017-11-20 10:44 | Discharge Summary ---
Discharge Summary Date of Service Nov 20, 2017. 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 Vaccinations: None. Consultations: Pulm-[place] ID-Almanza Pending Studies/Follow-Up: see instructions below. Medication Reconciliation New Medications: Cefpodoxime Proxetil (Cefpodoxime Proxetil) 200 Mg Tab 2 TAB PO BID for 8 Days, #32 TAB Dexamethasone (Decadron) 4 Mg Tab 4 TAB PO Q8 for 5 Days, #15 TAB Azithromycin (Zithromax) 500 Mg Tab 1 TAB PO DAILY for 3 Days, #3 TAB Continued Medications: Benzonatate (Tessalon Perles) 100 Mg Cap 200 MG PO Q8 PRN for Cough, CAP Diphenoxylate/Atropine (Lomotil) Tab 2 TAB PO Q4H PRN for Diarrhea, TAB Duloxetine Hcl (Cymbalta) 60 Mg Cap 60 MG PO DAILY, CAP Irinotecan Hcl (Irinotecan) 40 Mg/2 Ml Inj IV UD TAKE THIS MED IV FRIDAY THRU FRIDAY OF CHEMO WEEK. Levonorgestrel & Eth Estradiol (Falmina) 1 Tab Tab 1 TAB PO DAILY Levothyroxine Sodium (Levothyroxine Sodium) 88 Mcg Tab 88 MCG PO DAILY, TAB Loperamide HCl (Loperamide HCl) 2 Mg Cap 2 MG PO Q4H PRN for Diarrhea Ondasetron Odt (Zofran Odt) 4 Mg Tab 4 MG SL Q6H for Nausea, #20 TAB Prochlorperazine Maleate (Compazine) 10 Mg Tab 10 MG PO Q4H PRN for Nausea, TAB NAUSEA/VOMITING Temozolomide (Temozolomide) 100 Mg Cap 200 MG PO DAILY X 5DAYS/UD TAKE THIS MED DAILY X 5 DAYS EVERY 3 WEEKS ON DAYS OF CHEMO. Vincristine Sulfate (Vincristine Sulfate) 1 Mg/Ml Inj IV UD TAKE THIS MED IV ON FRIDAY OF CHEMO WEEK. Admission Information HPI (per Admitting provider): This is a 32 yo F with hx of Quinn Sarcoma on chemo follows at [facility] Dr Staddon -last chemo tx was on 11/03-11/07 ( IV Irinotecan/Temozolomide/ vincristine ) sent to ER for hypoxia, cough , fever Pt was seen by Dr Berny chopra at [facility] for flu like symptom -with symptom of fever , chills, productive cough with yellow mucosus , generalized body ache Her symptom started Last Friday -which has gone progressively worse started to have + wheeze since yesterday has pleuritic central chest wall , worse with taking deep breath in the clinic pt was found to be hypoxic Spo2 87 % in RA , requiring supplemental o2 tachycardic HR 122 pt was directed to ER in ER -pt was hypoxic , tachycardic CT chest with contrast shows no evidence of PE , Scattered ill-defined tree-in-bud nodules within the lungs which are new since PET/CT of August 20, 2017 and suggest an infectious bronchiolitis. Physical Exam (per Admitting): General Appearance: no apparent distress Head: atraumatic, + pertinent finding (loss of hair due to chemo tx ) Eyes: normal inspection, PERRL, EOMI, sclerae normal Neck: thyroid normal, no JVD, no carotid bruits, trachea midline Respiratory/Chest: + wheezing, + pertinent finding (pluritic chest pain ) Cardiovascular: + tachycardia Abdomen/GI: normal bowel sounds, non tender, soft Extremities/Musculoskelatal: normal inspection, no calf tenderness, normal capillary refill, no pedal edema Neurologic/Psych: no motor/sensory deficits, alert, normal mood/affect, oriented x 3 Skin: normal color, warm/dry, no rash Hospital Course The patient was hypoxic in the ER to 88% on room air with good response to supplemental oxygen. She was given Solumedrol 125mg IV, Duoneb x 2, and a Liter of normal saline. Potassium replacement and Zofran were also given. She was started on Vanc and Cefepime. A CTA revealed no evidence of PE and there were ill-defined nodules suggesting infectious bronchiolitis present and a possible pathological fracture of rib 6 on the right. She was admitted for pneumonia and Pulmonology and ID were consulted. She was de-escalated to ceftriaxone and azithromycin, continued on bronchodilators, given localized bronchiectasis and her steroids were switched to oral dexamethasone. The following day her hypoxia had resolved and she was mentating and ambulating at baseline with no increased work of breathing and an improvement in her cough. Of note, she also had some mild diarrhea that was non-infectious and minor. Her father had just abruptly and she needed to get home TANO for the . Physical exam revealed clear lungs to auscultation. She was instructed to push back her next chemotherapy session for after she completed the 10 day course of antibiotics for her pneumonia. She verbalized understanding with intent to comply. She was discharged in guarded condition only 2/2 the active cancer diagnosis. Total time spent on discharge = 60 minutes This includes examination of the patient, discharge planning, medication reconciliation, and communication with other providers. Discharge Instructions [facility] [address] [place] [address] Discharge Medical Patient Name: Jane Waddell Unit Number: [id number] Date of : 1985 Patient Status: Admitted Inpatient Attending Doctor: Kell Viera DO DI: Medical v4 Discharge Instructions Date of Service Nov 20, 2017. Admission Reason for Admission: Fever, Hypoxia Discharge Discharge Diagnosis / Problem: Community-acquired pneumonia Discharge Goals Goal(s): Therapeutic intervention Activity Recommendations Activity Limitations: per Instructions/Follow-up section . Instructions / Follow-Up Instructions / Follow-Up Please take all medications as instructed. You were given two antibiotics and one week of steroids to take. Please complete all as instructed. Follow-up was set up for you with Dr. Palmer on 11/25 @ 1100. As instructed, it is recommended that you reschedule your next chemotherapy schedule for after you finish your antibiotic course. Additionally, you will need to establish care with a lung specialist, Automatic Splicing Machine Operator, in the area because of changes with your lungs related to surgery and radiation in the past. Dr. Ruben Felix is a pearl restorer with the [facility] and you can get a referral from Dr. Palmer to see him. His office number is . It was a pleasure taking care of you! Call if you have any questions or problems. You can reach a [facility] hospitalist on duty at [facility] 24 hours a day by calling [phone]. Take care of yourself. DO [facility] Current Hospital Diet Patient's current hospital diet: Regular Diet Discharge Diet Recommended Diet: Regular Diet Procedures Procedures Performed: None. Pending Studies Studies pending at discharge: yes List of pending studies: Stool studies and final blood cultures pending at discharge. Preliminary blood cultures are negative. Medical Emergencies . Who to Call and When: Medical Emergencies: If at any time you feel your situation is an emergency, please call 911 immediately. . Non-Emergent Contact Non-Emergency issues call your: Primary Care Provider . . "Provider Documentation" section prepared by Kell Viera. . VTE Core Measure Inpt VTE Proph given/why not?: Refusal of treatmnt by pt Additional Copies To Dandy Palmer D.O.
[2017-11-20] MEDS ORDERED: CEFD300C2 PO (10:51)
[2017-11-20 10:55] VITALS: BP 99/65; PULSE 72; TEMP 36.5; O2SAT 96
--- NOTE | 2017-11-20 12:49 | Pulmonology Progress Note ---
Pulmonary Progress Note Date of Service Nov 20, 2017. Attending Dr. Carlson Subjective The patient improved clinically, she does not have any fever, no cough or sputum production, no wheezing reported. Objective 11/20/2017 physical exam revealed no fever and also saturation is 95% on room air. Scattered crackles mainly in the upper lung driver on the right side. No wheezing reported. Assessment & Plan #1 right upper lobe pneumonia. #2 addition pneumonitis localized to the right upper lobe. 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 This was an incidental finding. Patient is asymptomatic. Plan: #1 change antibiotics to oral cephalosporin third-generation. Continue azithromycin for 5 days. #2 follow-up with pulmonary as an outpatient. The right upper lobe localized bronchiectasis would be a nidus for infection in the future and needs to be followed up closely in the pulmonary clinic. #3 I instructed the patient to complete her course of antibiotic prior to starting the next cycle of chemotherapy. #4 agree with discharge to home. Thank you. Data Medications: Current Inpatient Medications Medications (Trade) Dose Ordered Sig/Emily Route Start Time Stop Time Status Last Admin Dose Admin Ioversol (Optiray 320) 125 ml UD PRN IV 11/18/17 15:15 11/22/17 15:14 Enoxaparin Sodium (Lovenox Inj) 40 mg HS SC 11/18/17 22:30 12/18/17 22:29 Acetaminophen (Tylenol Tab) 650 mg Q4H PRN PO 11/18/17 18:45 12/18/17 18:44 Al Hydrox/Mg Hydrox/Simethicone (Maalox Max Susp) 15 ml Q4H PRN PO 11/18/17 18:45 12/18/17 18:44 Magnesium Hydroxide (Milk Of Magnesia Susp) 30 ml Q12H PRN PO 11/18/17 18:45 12/18/17 18:44 Ondansetron HCl (Zofran Inj) 4 mg Q6H PRN IV 11/18/17 18:45 12/18/17 18:44 Polyethylene (Miralax Powder Packet) 17 gm DAILY PRN PO 11/18/17 18:45 12/18/17 18:44 Benzonatate (Tessalon Perles Cap) 200 mg Q8 PRN PO 11/18/17 19:15 12/18/17 19:14 Diphenoxylate HCl/ Atropine (Lomotil Tab) 2 tab Q4H PRN PO 11/18/17 19:15 12/18/17 19:14 Levothyroxine Sodium (Synthroid Tab) 88 mcg DAILYBB PO 11/19/17 06:00 12/19/17 05:59 11/20/17 05:22 88 MCG Loperamide HCl (Imodium Cap) 2 mg Q4H PRN PO 11/18/17 22:15 12/18/17 22:14 Ondansetron HCl (Zofran Odt) 4 mg Q6 SL 11/19/17 00:00 12/19/17 00:00 Prochlorperazine Maleate (Compazine Tab) 10 mg Q4H PRN PO 11/18/17 19:15 12/18/17 19:14 Ipratropium [place] (Atrovent 0.02% 0.5MG/2.5ML Neb) 0.5 mg Q6R INH 11/19/17 03:00 12/19/17 02:59 11/20/17 07:02 0.5 MG Levalbuterol (Xopenex 1.25MG/ 0.5ML Neb) 1.25 mg Q6R INH 11/19/17 03:00 12/19/17 02:59 11/20/17 07:02 1.25 MG Heparin Sodium (Porcine) (Heparin 100 Unit/ml 5ml Flush) 5 ml PRN PRN IV 11/19/17 00:45 12/19/17 00:44 Duloxetine HCl (Cymbalta Cap) 60 mg HS PO 11/19/17 21:00 12/19/17 20:59 11/19/17 21:50 60 MG Ceftriaxone Sodium 1 gm/ Dextrose 50 ml @ 100 mls/hr Q24H IV 11/19/17 18:00 11/26/17 17:59 11/19/17 18:11 100 MLS/HR Azithromycin (Zithromax Tab) 500 mg QAM PO 11/19/17 14:00 11/26/17 13:59 11/20/17 08:11 500 MG Dexamethasone (Decadron Tab) 4 mg Q8 PO 11/19/17 22:00 12/19/17 21:59 11/20/17 05:22 4 MG Vital Signs: Date Time Temp Pulse Resp B/P (MAP) Pulse Ox O2 Delivery O2 Flow Rate FiO2 11/20/17 12:00 Room Air 11/20/17 10:55 36.5 72 20 96 Room Air 11/20/17 08:12 36.5 72 20 99/65 (76) 96 Room Air 11/20/17 08:00 Room Air 11/20/17 07:02 70 16 97 Nasal Cannula 2.0 11/20/17 04:00 Nasal Cannula 2.0 11/20/17 03:31 36.4 74 16 93/61 (72) 94 2.5 11/20/17 01:50 70 16 97 Nasal Cannula 2.0 11/19/17 23:59 Nasal Cannula 2.0 11/19/17 23:46 36.3 83 16 109/73 (85) 95 2.5 11/19/17 20:05 36.6 105 20 130/89 (103) 94 Nasal Cannula 2.0 11/19/17 20:00 Nasal Cannula 2.0 11/19/17 19:37 84 16 97 Nasal Cannula 2.0 11/19/17 16:00 Room Air 2.0 Nasal Cannula 11/19/17 15:31 36.6 81 18 94/60 (71) 92 Nasal Cannula 2.0 11/19/17 14:21 74 16 91 Nasal Cannula 2.0
== END 2017-11-20 13:48 | disposition home or self-care (01) | DRG 193 ==
LOC: C.EDB 10:57 → C.2T 18:42 → ENRESERV 20:14
PROVIDERS: ADMIT Hospitalist; ATTEND Hospitalist
DX: J18.9 Pneumonia, unspecified organism (principal); J96.01 Acute respiratory failure with hypoxia; J21.9 Acute bronchiolitis, unspecified; K52.1 Toxic gastroenteritis and colitis; M84.48XA Pathological fracture, other site, initial encounter for fracture; C41.9 Malignant neoplasm of bone and articular cartilage, unspecified; A31.0 Pulmonary mycobacterial infection; J70.0 Acute pulmonary manifestations due to radiation; Y84.2 Radiological procedure and radiotherapy as the cause of abnormal reaction of the patient, or of later complication, without mention of misadventure at the time of the procedure; D70.1 Agranulocytosis secondary to cancer chemotherapy; T45.1X5A Adverse effect of antineoplastic and immunosuppressive drugs, initial encounter; E87.6 Hypokalemia; R00.0 Tachycardia, unspecified; Z87.891 Personal history of nicotine dependence; Z79.899 Other long term (current) drug therapy; Z88.2 Allergy status to sulfonamides

== ENCOUNTER → 2017-11-26 | Outpatient (CLI) | payer OTHER ==
[~2017-11-26] MED LIST changes: +AZIT500T PO; +CEFD300C2 PO; +DULO-24 PO; +DXM/4 PO; +PROC1TAB5 PO
--- NOTE | 2017-11-26 15:24 | DIAGNOSTIC IMAGING REPORT ---
PET/CT CLINICAL HISTORY: Recurrent Quinn's Sarcoma. TECHNIQUE: A PET/CT was performed from the skull base through the upper thighs following intravenous injection of 14.71 mCi of F 18 FDG IV. The injection was performed at 7:31 AM on November 26, 2017 and imaging began at 8:27 AM on November 26, 2017. Unenhanced CT was performed for attenuation correction purposes and anatomic localization. COMPARISON STUDY: PET/CT August 20, [address] November 18, 2017. FINDINGS: Head and neck: There is no suspicious FDG uptake within the neck. There is no cervical lymphadenopathy. Note is made secretions within the bilateral maxillary sinuses, left greater than right. Chest: Postoperative findings involving the right upper posterior chest wall with partial resection of the third and fourth ribs are again noted. There is associated volume loss within the lungs with bronchiectasis. Mild FDG uptake within the operative bed is unchanged since PET/CT of August 20, 2017. SUV max is 3.2. The appearance of the operative bed is unchanged on the CT portion of this examination. The previously described right lateral chest wall mass has significantly decreased in size since PET/CT of August 20, 2017. This mass now measures 1.6 cm. It previously measured 3.6 cm. FDG uptake within this lesion is difficult to assess given marked FDG uptake within the adjacent right sixth rib with an SUV max of 8.3. Similar FDG uptake was shown on prior PET/CT. There is exuberant callus formation of the right sixth rib with associated fracture. This favors a pathologic fracture. The left lung nodules shown on PET/CT of August 20, 2017 are no longer visualized suggesting of a treatment response. There are no suspicious pulmonary nodules. Abdomen and Pelvis: No abnormal FDG uptake is identified within the abdomen or the pelvis. There is no abdominal or pelvic lymphadenopathy. Musculoskeletal: FDG uptake within the C7 vertebra shown on exam of August 20, 2017 has essentially resolved. Uptake within this region is now similar to background bone uptake with an SUV max of 2.8. A few additional sclerotic foci within the spine are unchanged since prior PET/CT and demonstrate no abnormal FDG uptake. No new skeletal lesions are identified. Mild multifocal uptake within the musculature of the right upper extremity/shoulder is noted within SUV max of 4. This was not present on prior PET/CT. IMPRESSION: 1. Significant interval decrease in size of the right lateral chest wall mass since PET/CT of August 20, 2017 consistent with a partial treatment response. Small residual lateral chest wall mass with mild FDG uptake. Interval development of exuberant callus formation of the lateral right sixth rib with associated pathologic fracture and marked FDG uptake within this rib. The findings suggest a pathologic fracture with suspected tumor involvement. The FDG uptake could be related to underlying tumor or healing fracture. This can be assessed on follow-up PET/CT. 2. Interval resolution of left lung nodules and FDG uptake within the C7 vertebral lesion consistent with a treatment response. 3. Mild multifocal uptake within the musculature of the right upper extremity/right shoulder. This likely reflects muscular activity. This is unlikely to represent a neoplastic process but should be assessed on subsequent exams. 4. Secretions within the bilateral maxillary sinuses, left greater than right, which suggests sinusitis. Electronically signed by: Castro Hammond M.D. 11/26/2017 3:22 PM Dictated Date/Time: 11/26/2017 9:48 AM
== END | disposition home or self-care (01) ==
LOC: C.PET 07:04
PROVIDERS: ATTEND Internal Medicine Hematology & Oncology
DX: R22.2 Localized swelling, mass and lump, trunk (principal); M25.70 Osteophyte, unspecified joint; M84.48XA Pathological fracture, other site, initial encounter for fracture; C41.9 Malignant neoplasm of bone and articular cartilage, unspecified

== ENCOUNTER 2017-11-27 08:16 | Emergency (ER) | payer OTHER ==
[~2017-11-27] VITALS: Ht 177.8 cm; Wt 107.2 kg
[~2017-11-27 08:16] MED LIST changes: -DULO-24 PO; -DXM/4 PO; -OXYC1TAB3 PO
[2017-11-27 08:21] VITALS: Ht 177.8 cm; Wt 107.2 kg
[2017-11-27] MEDS ORDERED: SODIUM CHLORIDE 0.9% 1000ML 1,000 ML IV STA (09:08)
[2017-11-27] MEDS ORDERED: OPTIRAY 320 IV PRN (09:15)
[2017-11-27] MEDS ORDERED: HYDROmorphone INJ 2 MG/ML SYR/VIAL IV STA (09:26)
[2017-11-27 09:36] LABS: HEMATOCRIT 37.3 % (37-47); HEMOGLOBIN 12.5 g/dL (12.0-16.0); IG# 0.23 K/uL (0.00-0.02); LYMPH % 35.2 %; LYMPH ABS # 2.69 K/uL (1.2-3.4); MEAN CELL VOLUME 95.2 fL (80-100); MEAN CORPUSCULAR HEMOGLOBIN 31.9 pg (25-34); MEAN CORPUSCULAR HGB CONC 33.5 g/dl (32-36); MEAN PLATELET VOLUME 8.5 fL (7.4-10.4); MONO % 13.1 %; NEUT % 48.7 %; NEUT ABS # 3.72 K/uL (1.4-6.5); PLATELET COUNT 162 K/uL (130-400); RED CELL DISTRIBUTION WIDTH CV 15.1 % (11.5-14.5); RED CELL DISTRIBUTION WIDTH SD 52.2 fL (36.4-46.3); WHITE BLOOD COUNT 7.64 K/uL (4.8-10.8)
--- NOTE | 2017-11-27 09:44 | DIAGNOSTIC IMAGING REPORT ---
CHEST ONE VIEW PORTABLE CLINICAL HISTORY: EVALUATE ALTERED MENTAL STATUS/WEAKNESS COMPARISON STUDY: 11/18/2017 FINDINGS: Postsurgical changes are present on the right. There is stable right apical pleural thickening. There is partial resection of the left third and fourth ribs. There is right lateral pleural thickening. There is a dual-lumen right-sided A-Port catheter. There is no acute parenchymal consolidation. There is no failure.[ IMPRESSION: 1. Postsurgical changes on the right with persistent right lateral pleural thickening/mass 2. No acute findings Electronically signed by: Michael Malik M.D. 11/27/2017 9:43 AM Dictated Date/Time: 11/27/2017 9:41 AM
[2017-11-27 09:50] LABS: PTT PATIENT 24.9 SECONDS (21.0-31.0)
[2017-11-27] MEDS ORDERED: DULO-24 PO (09:54)
[2017-11-27 09:58] LABS: ALBUMIN 3.1 gm/dl (3.4-5.0); ALT/SGPT 81 U/L (12-78); BLOOD UREA NITROGEN 22 mg/dl (7-18); CARBON DIOXIDE 24 mmol/L (21-32); CREATININE 0.85 mg/dl (0.60-1.20); GLUCOSE 109 mg/dl (70-99); POTASSIUM 3.3 mmol/L (3.5-5.1); SODIUM 135 mmol/L (136-145)
[2017-11-27 10:03] LABS: ALKALINE PHOSPHATASE 91 U/L (45-117); AST/SGOT 17 U/L (15-37); CKMB 0.8 ng/ml (0.5-3.6); TOTAL PROTEIN 6.2 gm/dl (6.4-8.2)
--- NOTE | 2017-11-27 11:18 | DIAGNOSTIC IMAGING REPORT ---
LUMBAR SPINE WITHOUT CLINICAL HISTORY: 32 years-old Female presenting with b/l lower extrem pain, hx Quinn sarcoma. TECHNIQUE: Multidetector CT of the MR spine was performed without the use of intravenous contrast. IV contrast: None. A dose lowering technique was used consistent with the principles of ALARA (as low as reasonably achievable). COMPARISON: PET/CT from 11/26/2017 and PET/CT from 08/20/2017. CT DOSE (mGy.cm): The estimated cumulative dose is 1084.51 mGy.cm. FINDINGS: Plastic Tile Setter topogram: Unremarkable. Normal lumbar lordosis. Vertebral bodies maintain normal height and alignment. No evidence of compression deformity. Intervertebral discs maintained. No subluxation. No scoliosis. No osseous neural foraminal or spinal canal narrowing. IMPRESSION: Normal CT examination of the lumbar spine. Electronically signed by: Gilles Esteves M.D. 11/27/2017 11:17 AM Dictated Date/Time: 11/27/2017 11:12 AM
--- NOTE | 2017-11-27 11:26 | DIAGNOSTIC IMAGING REPORT ---
CT SCAN OF THE ABDOMEN AND PELVIS WITH IV CONTRAST CLINICAL HISTORY: Lower extremity pain. History of Quinn's sarcoma. COMPARISON STUDY: Fluoroscopic upper GI series and small bowel study dated 01/28/2006. PET CT dated 11/26/2017. TECHNIQUE: Following the IV administration of 94 cc of Optiray 320, CT scan of the abdomen and pelvis is performed from the lung bases to the proximal femora. Images are reviewed in the axial, sagittal, and coronal planes. IV contrast was administered without complication. A dose lowering technique was utilized adhering to the principles of ALARA. FINDINGS: Lung bases: The tip of an infusion port is noted in the right atrium. The heart is normal in size and without pericardial effusion. Linear atelectasis versus scarring is seen at the right lung base. No airspace consolidation or pleural effusion is identified. Liver: The contrast-enhanced liver is normal in size, contour, and attenuation. There is no intrahepatic biliary ductal dilatation. The hepatic veins and portal veins are patent. Gallbladder: Unremarkable. Spleen: Normal in size and attenuation. Pancreas: Unremarkable. Adrenal glands: Unremarkable. Kidneys: The contrast enhanced kidneys are normal in size and without hydronephrosis. There are small bilateral extrarenal pelvises. The kidneys enhance symmetrically. Slightly heterogeneous perfusion is suggested in the upper pole of the left kidney on axial image #138. Abdominal vasculature: The abdominal aorta is normal in course and caliber. Bowel: There is mild to moderate colonic fecal retention. No bowel obstruction is seen. The appendix is not clearly identified. Peritoneum: There is no intraperitoneal free air or abdominal ascites. Lymphadenopathy: None. Pelvic viscera: The bladder, uterus, and adnexa are normal as visualized. Skeletal structures: A right sixth rib lesion with pathologic fracture is again noted. There is a small rim of overlying soft tissue which measures up to 1.7 x 0.9 cm as seen on image #24. No additional destructive bony lesion is identified. A hemangioma is noted in the body of T11. IMPRESSION: 1. Question slightly heterogeneous perfusion in the upper pole of the left kidney. This is nonspecific. Correlate clinically and with urinalysis for evidence of pyelonephritis. 2. There is unchanged appearance of a bone lesion involving the right 6th rib with associated pathologic fracture when compared to yesterday's PET examination. 3. Mild to moderate constipation. Electronically signed by: Sulaiman Simmons M.D. 11/27/2017 11:25 AM Dictated Date/Time: 11/27/2017 11:14 AM
[2017-11-27] MEDS ORDERED: OXYC1TAB3 PO (13:18)
--- NOTE | 2017-11-27 13:20 | EMERGENCY ROOM VISIT NOTE ---
History Report prepared by Skyler: Cris Salas Under the Supervision of: Dr. Cesar Peterson D.O. First contact with patient: 08:50 Chief Complaint: PAIN (GENERALIZED) Stated Complaint: EXTREMITY PAIN History of Present Illness The patient is a 32 year old female who presents to the Emergency Room with complaints of worsening joint pain beginning last night. The patient states her symptoms began as hip pain which lasted for 30 minutes before progressing to her lower extremities. Presently, she is having shooting pain in her lower extremity joints. The patient states she is unable to stand up because of her pain is so severe. The patient has a history of Ewings's sarcoma. The patient was first diagnosed with Quinn's sarcoma in 2011. She states she had a reoccurrence of it in 2014 and another reoccurrence in 2016. The patient is currently being treated with chemotherapy. She denies any swelling, back pain, or weakness of her legs. The patient states she has never had pain like this before with her Quinn's sarcoma. The patient was admitted on 11/18/17 for flu like symptoms and pneumonia. She is currently on antibiotics for pneumonia. The patient follows up with Dr. Kevin at [place] for her Quinn's sarcoma. Source of History: patient Onset: last night Position: leg (bilateral) Timing: worsening Modifying Factors (Worsening): other (walking) Associated Symptoms: No back pain, No weakness Review of Systems See HPI for pertinent positives & negatives. A total of 10 systems reviewed and were otherwise negative. Past Medical & Surgical Medical Problems: (1) CAP (community acquired pneumonia) (2) Quinn's sarcoma of bone (3) Fever (4) HYPOXIA (5) Left Hand Surgery (6) Lung biopsy (7) Tonsillectomy Family History Patient reports no known family medical history. Social History Smoking Status: Current Some Day Smoker Alcohol Use: none Marital Status: single Housing Status: lives with significant other Occupation Status: employed Current/Historical Medications Scheduled Azithromycin (Zithromax), 1 TAB PO DAILY Cefdinir (Omnicef), 300 MG PO BID Duloxetine HCl (Cymbalta), 20 MG PO DAILY Irinotecan Hcl (Irinotecan), IV UD Levonorgestrel & Eth Estradiol (Falmina), 1 TAB PO DAILY Levothyroxine Sodium (Levothyroxine Sodium), 88 MCG PO DAILY Ondasetron Odt (Zofran Odt), 4 MG SL Q6H Temozolomide (Temozolomide), 200 MG PO DAILY X 5DAYS/UD Vincristine Sulfate (Vincristine Sulfate), IV UD Scheduled PRN Benzonatate (Tessalon Perles), 200 MG PO Q8 PRN for Cough Diphenoxylate/Atropine (Lomotil), 2 TAB PO Q4H PRN for Diarrhea Loperamide HCl (Loperamide HCl), 2 MG PO Q4H PRN for Diarrhea Oxycodone Ir (Roxicodone Ir), 1-2 TAB PO Q4H PRN for Severe Pain Prochlorperazine Maleate (Compazine), 10 MG PO Q4H PRN for Nausea Allergies Coded Allergies: Sulfa Antibiotics (Verified Allergy, Unknown, UNKNOWN, 11/27/17) Physical Exam Vital Signs Date Time Temp Pulse Resp B/P (MAP) Pulse Ox O2 Delivery O2 Flow Rate FiO2 11/27/17 13:57 36.4 74 20 115/69 94 11/27/17 13:42 115/69 11/27/17 13:30 115/69 11/27/17 13:21 36.4 71 18 116/66 97 Room Air 11/27/17 13:21 74 20 94 11/27/17 13:20 116/66 11/27/17 13:01 104/47 11/27/17 12:51 61 12 93 11/27/17 12:32 62 11/27/17 12:31 109/52 11/27/17 12:21 62 15 92 11/27/17 12:01 117/71 11/27/17 11:51 71 19 97 11/27/17 11:30 112/74 11/27/17 11:21 73 16 86 11/27/17 11:16 79 18 96 11/27/17 11:08 123/77 11/27/17 10:19 77 13 106/68 97 Room Air 11/27/17 10:16 76 20 95 11/27/17 10:01 106/68 11/27/17 09:46 89 14 89 11/27/17 09:40 112/79 11/27/17 09:16 90 22 11/27/17 09:00 120/71 11/27/17 08:46 103 26 98 11/27/17 08:30 110/84 11/27/17 08:21 36.5 103 28 105/76 96 Room Air 11/27/17 08:21 97 11/27/17 08:19 105/76 Physical Exam CONSTITUTIONAL/VITAL SIGNS: Reviewed / noted above. GENERAL: Non-toxic in appearance. INTEGUMENTARY: Warm, dry, and [place]. HEAD: Normocephalic. EYES: without scleral icterus or trauma. ENT/OROPHARYNX: clear and moist. LYMPHADENOPATHY/NECK: Is supple without lymphadenopathy or meningismus. RESPIRATORY: Lungs clear and equal. CARDIOVASCULAR: Regular rate and rhythm. GI/ABDOMEN: Soft and nontender. No organomegaly or pulsatile mass. No rebound or guarding. Normal bowel sounds. EXTREMITIES: Warm and well perfused. Strong distal pulses. No rash or erythema. No edema. Normal ROM without significant pain. BACK: No CVA tenderness. NEUROLOGICAL: Intact without focal deficits. PSYCHIATRIC: normal affect. MUSCULOSKELETAL: Normally developed with good muscle tone. Medical Decision & Procedures ER Provider Diagnostic Interpretation: Radiology results as stated below per my review and radiologist interpretation: CT SCAN OF THE ABDOMEN AND PELVIS WITH IV CONTRAST FINDINGS: Lung bases: The tip of an infusion port is noted in the right atrium. The heart is normal in size and without pericardial effusion. Linear atelectasis versus scarring is seen at the right lung base. No airspace consolidation or pleural effusion is identified. Liver: The contrast-enhanced liver is normal in size, contour, and attenuation. There is no intrahepatic biliary ductal dilatation. The hepatic veins and portal veins are patent. Gallbladder: Unremarkable. Spleen: Normal in size and attenuation. Pancreas: Unremarkable. Adrenal glands: Unremarkable. Kidneys: The contrast enhanced kidneys are normal in size and without hydronephrosis. There are small bilateral extrarenal pelvises. The kidneys enhance symmetrically. Slightly heterogeneous perfusion is suggested in the upper pole of the left kidney on axial image #138. Abdominal vasculature: The abdominal aorta is normal in course and caliber. Bowel: There is mild to moderate colonic fecal retention. No bowel obstruction is seen. The appendix is not clearly identified. Peritoneum: There is no intraperitoneal free air or abdominal ascites. Lymphadenopathy: None. Pelvic viscera: The bladder, uterus, and adnexa are normal as visualized. Skeletal structures: A right sixth rib lesion with pathologic fracture is again noted. There is a small rim of overlying soft tissue which measures up to 1.7 x 0.9 cm as seen on image #24. No additional destructive bony lesion is identified. A hemangioma is noted in the body of T11. IMPRESSION: 1. Question slightly heterogeneous perfusion in the upper pole of the left kidney. This is nonspecific. Correlate clinically and with urinalysis for evidence of pyelonephritis. 2. There is unchanged appearance of a bone lesion involving the right 6th rib with associated pathologic fracture when compared to yesterday's PET examination. 3. Mild to moderate constipation. Electronically signed by: Sulaiman Simmons M.D. CHEST ONE VIEW PORTABLE FINDINGS: Postsurgical changes are present on the right. There is stable right apical pleural thickening. There is partial resection of the left third and fourth ribs. There is right lateral pleural thickening. There is a dual-lumen right-sided A-Port catheter. There is no acute parenchymal consolidation. There is no failure.[ IMPRESSION: 1. Postsurgical changes on the right with persistent right lateral pleural thickening/mass 2. No acute findings Electronically signed by: Michael Malik M.D. LUMBAR SPINE WITHOUT FINDINGS: Novelty Dipper topogram: Unremarkable. Normal lumbar lordosis. Vertebral bodies maintain normal height and alignment. No evidence of compression deformity. Intervertebral discs maintained. No subluxation. No scoliosis. No osseous neural foraminal or spinal canal narrowing. IMPRESSION: Normal CT examination of the lumbar spine. Electronically signed by: Gilles Esteves M.D. PET/CT from 11/26/17 IMPRESSION: 1. Significant interval decrease in size of the right lateral chest wall mass since PET/CT of August 20, 2017 consistent with a partial treatment response. Small residual lateral chest wall mass with mild FDG uptake. Interval development of exuberant callus formation of the lateral right sixth rib with associated pathologic fracture and marked FDG uptake within this rib. The findings suggest a pathologic fracture with suspected tumor involvement. The FDG uptake could be related to underlying tumor or healing fracture. This can be assessed on follow-up PET/CT. 2. Interval resolution of left lung nodules and FDG uptake within the C7 vertebral lesion consistent with a treatment response. 3. Mild multifocal uptake within the musculature of the right upper extremity/right shoulder. This likely reflects muscular activity. This is unlikely to represent a neoplastic process but should be assessed on subsequent exams. 4. Secretions within the bilateral maxillary sinuses, left greater than right, which suggests sinusitis. Electronically signed by: Castro Hammond M.D. Laboratory Results 11/27/17 09:25 Red Blood Count 3.92, Mean Corpuscular Volume 95.2, Mean Corpuscular Hemoglobin 31.9, Mean Corpuscular Hemoglobin Concent 33.5, Mean Platelet Volume 8.5, Neutrophils (%) (Auto) 48.7, Lymphocytes (%) (Auto) 35.2, Monocytes (%) (Auto) 13.1, Eosinophils (%) (Auto) 0.0, Basophils (%) (Auto) 0.0, Neutrophils # (Auto ) 3.72, Lymphocytes # (Auto) 2.69, Monocytes # (Auto) 1.00, Eosinophils # (Auto ) 0.00, Basophils # (Auto) 0.00 11/27/17 09:25 Test 11/27/17 09:25 White Blood Count 7.64 K/uL (4.8-10.8) Red Blood Count 3.92 M/uL (4.2-5.4) Hemoglobin 12.5 g/dL (12.0-16.0) Hematocrit 37.3 % (37-47) Mean Corpuscular Volume 95.2 fL (80-100) Mean Corpuscular Hemoglobin 31.9 pg (25-34) Mean Corpuscular Hemoglobin Concent 33.5 g/dl (32-36) Platelet Count 162 K/uL (130-400) Mean Platelet Volume 8.5 fL (7.4-10.4) Neutrophils (%) (Auto) 48.7 % Lymphocytes (%) (Auto) 35.2 % Monocytes (%) (Auto) 13.1 % Eosinophils (%) (Auto) 0.0 % Basophils (%) (Auto) 0.0 % Neutrophils # (Auto) 3.72 K/uL (1.4-6.5) Lymphocytes # (Auto) 2.69 K/uL (1.2-3.4) Monocytes # (Auto) 1.00 K/uL (0.11-0.59) Eosinophils # (Auto) 0.00 K/uL (0-0.5) Basophils # (Auto) 0.00 K/uL (0-0.2) RDW Standard Deviation 52.2 fL (36.4-46.3) RDW Coefficient of Variation 15.1 % (11.5-14.5) Immature Granulocyte % (Auto) 3.0 % Immature Granulocyte # (Auto) 0.23 K/uL (0.00-0.02) Prothrombin Time 10.3 SECONDS (9.0-12.0) Prothromb Time International Ratio 1.0 (0.9-1.1) Activated Partial Thromboplast Time 24.9 SECONDS (21.0-31.0) Partial Thromboplastin Ratio 1.0 Urine Color YELLOW Urine Appearance CLEAR (CLEAR) Urine pH 6.5 (4.5-7.5) Urine Specific [place] 1.015 (1.000-1.030) Urine Protein NEG (NEG) Urine Glucose (UA) NEG (NEG) Urine Ketones NEG (NEG) Urine Occult Blood NEG (NEG) Urine Nitrite NEG (NEG) Urine Bilirubin NEG (NEG) Urine Urobilinogen NEG (NEG) Urine Leukocyte Esterase NEG (NEG) Urine WBC (Auto) 0 /hpf (0-5) Urine RBC (Auto) 0-4 /hpf (0-4) Urine Hyaline Casts (Auto) 1-5 /lpf (0-5) Urine Epithelial Cells (Auto) 10-20 /lpf (0-5) Urine Bacteria (Auto) NEG (NEG) Anion Gap 9.0 mmol/L (3-11) Est Creatinine Clear Calc Drug Dose 128.3 ml/min Estimated GFR () 106.6 Estimated GFR (Non- 91.9 BUN/Creatinine Ratio 25.6 (10-20) Calcium Level 8.0 mg/dl (8.5-10.1) Total Bilirubin 0.2 mg/dl (0.2-1) Direct Bilirubin < 0.1 mg/dl (0-0.2) Aspartate Amino Transf (AST/SGOT) 17 U/L (15-37) Alanine Aminotransferase (ALT/SGPT) 81 U/L (12-78) Alkaline Phosphatase 91 U/L (45-117) Total Creatine Kinase 40 U/L (26-192) Creatine Kinase MB 0.8 ng/ml (0.5-3.6) Creatine Kinase MB Ratio 2.0 (0-3.0) Total Protein 6.2 gm/dl (6.4-8.2) Albumin 3.1 gm/dl (3.4-5.0) Laboratory results as stated above per my review. Medications Administered Medications (Trade) Dose Ordered Sig/Emily Route Start Time Stop Time Status Last Admin Dose Admin Sodium Chloride 1,000 ml @ 999 mls/hr Q1H1M STAT IV 11/27/17 09:08 11/27/17 10:08 DC 11/27/17 09:08 999 MLS/HR Hydromorphone HCl (Dilaudid Inj) 2 mg NOW STAT IV 11/27/17 09:26 11/27/17 09:27 DC 11/27/17 10:18 2 MG ED Course 0854: Previous medical records were reviewed. The patient was evaluated in room B7. A complete history and physical examination was performed. 0908: Ordered Sodium Chloride 1000 ml @ 999 mls/hr IV. 0926: Ordered Dilaudid Inj 2 mg IV. 1038: Discussed the patient's case Ashley Bryan. She is unsure of what could be causing her symptoms she does not believe it is medication related. 1301: I updated the patient. She is feeling better and would like to go home. 1325: On reevaluation, the patient is resting comfortably. I discussed the results and findings with the patient. She verbalized agreement of the treatment plan. The patient was discharged home. Medical Decision Differential diagnosis: Etiologies such as DVT, musculoskeletal, infection, joint effusion, trauma, lymphedema, idiopathic, CHF, as well as others were entertained.. This is a 32-year-old female who presents to the ED with a chief complaint of bilateral hip pain last night that radiated into all of the joints in the lower extremities. The patient has a history of Quinn sarcoma for which she is undergoing chemotherapy. The patient reports constant pain with occasional increase intensity. Her physical exam did not reveal any obvious abnormalities. Exam of both lower extremities do not reveal swelling, erythema , rashes. There is strong distal pulses. There is no calf tenderness or swelling. There is no evidence of any joint effusions. Her vital signs are stable. She is afebrile. CBC is unremarkable, complete metabolic panel was unremarkable, chest x-ray did not show acute disease. CT scan of the abdomen and pelvis did not show acute process and a CT scan of the lumbar spine did not show acute process. The patient also had a PET scan yesterday that showed improvement of her sarcoma's. I did speak with the patient's oncology physician camp assistant, Zeenat Rae, who reported that she did not feel her symptoms could be related to the chemotherapy or related to the sarcoma's. The patient was treated with IV pain medication here. She was given IV Dilaudid. She was given some IV fluids. The cause of her symptoms, she was offered admission. She declined this multiple times. She stated she would like to go home. She requested some oral pain medication. She was discharged with oxycodone. She is felt to be stable for discharge and outpatient follow-up. Medication Reconcilliation Current Medication List: was personally reviewed by me Blood Pressure Screening Patient's blood pressure: Normal blood pressure Consults Time Called: 1035 Consulting Physician: Ashley Bryan Returned Call: [phone] Discussed the patient's case Ashley Bryan. She is unsure of what could be causing her symptoms she does not believe it is medication related. . Impression Primary Impression: Lower extremity pain, bilateral Scribe Attestation The scribe's documentation has been prepared under my direction and personally reviewed by me in its entirety. I confirm that the note above accurately reflects all work, treatment, procedures, and medical decision making performed by me. Departure Information Dispostion Home / Self-Care Prescriptions Oxycodone Ir (Roxicodone Ir) 5 Mg Tab 1-2 TAB PO Q4H Y for Severe Pain, #12 TAB Prov: Cesar Peterson D.O. 11/27/17 Referrals Dandy Palmer D.OMary (PCP) Forms HOME CARE DOCUMENTATION FORM, IMPORTANT VISIT INFORMATION, WORK / SCHOOL INSTRUCTIONS Patient Instructions My [facility] Additional Instructions Percocet as prescribed. No driving within 6 hours of use. Do not take additional Tylenol while taking Percocet. Follow-up with your doctor for further care and evaluation in 1-2 days. Return to the emergency department for worsening or new symptoms or any concerns. You have been examined and treated today on an emergency basis only. This is not a substitute for, or an effort to provide, complete comprehensive medical care. It is impossible to recognize and treat all injuries or illnesses in a single emergency department visit. It is therefore important that you follow up closely with your doctor. Call as soon as possible for an appointment.
[2017-11-27 13:57] VITALS: BP 115/69; PULSE 74; TEMP 36.4; O2SAT 94
== END 2017-11-27 13:57 | disposition home or self-care (01) ==
LOC: EDBD 08:16 → C.EDB 08:19
DX: M79.604 Pain in right leg (principal); M79.605 Pain in left leg; C41.9 Malignant neoplasm of bone and articular cartilage, unspecified; Z79.899 Other long term (current) drug therapy; F17.200 Nicotine dependence, unspecified, uncomplicated

== ENCOUNTER → 2018-01-14 | Outpatient (CLI) | payer OTHER ==
[~2018-01-14] MED LIST changes: +CYCL10TA6 PO; +DULO-24 PO; -DULO60CA44 PO; +LEVO1TAB33 PO; +OXYC1TAB3 PO; +RIVA1TAB4 PO
--- NOTE | 2018-01-14 13:43 | DIAGNOSTIC IMAGING REPORT ---
PET/CT SKULL-THIGH HISTORY: MAL. NEOPLASM,BONE/ARTICULAR CARTLIDGE OR RT THUMB TECHNIQUE: PET/CT was performed from the base of the skull through the pelvis following the intravenous administration of 15.4 mCi of F18-FDG. Non-contrast CT imaging was performed over the same range without breath-hold for attenuation correction of PET images and anatomic correlation, but not for primary interpretation as it is not of standard diagnostic quality. CT DOSE: COMPARISON: 11/26/2017 FINDINGS: HEAD AND NECK: There is no FDG-avid disease or significant lymphadenopathy in the imaged portions of the head and the neck. CHEST: Activity overlying the right shoulder is similar. Bulk of this appears to be muscular activity. The postoperative activity overlying the right pulmonary apex is similar. The destructive mass involving the lower aspect of the right chest wall appears somewhat progressive. SUVs currently approximately 8.5. Maximum dimensions are 8 x 4.0 cm increased from a prior maximum dimension of 5 cm. The destructive changes of the sixth rib Are slightly progressive. ABDOMEN/PELVIS: There is physiologic activity within liver gastrointestinal tract and genitourinary tract. Increased activity in the left paravertebral region on the prior study appears stable with no significant anatomic correlate. Stable moderate degenerative activity in the region of the greater trochanters of the hips. No significant inguinal or pelvic sidewall activity. MUSCULOSKELETAL: There is no FDG-avid or destructive bone lesion. IMPRESSION: 1. Progressive chest wall mass right lower hemithorax. 2. This mass shows increase in geographic extent as well as increase in metabolic activity 3. All remaining components of the study are stable. The above report was generated using voice recognition software. It may contain grammatical, syntax or spelling errors. Electronically signed by: Nato Sosa M.D. 01/14/2018 1:41 PM Dictated Date/Time: 01/14/2018 1:06 PM
== END | disposition home or self-care (01) ==
LOC: C.PET 10:05
DX: C41.9 Malignant neoplasm of bone and articular cartilage, unspecified (principal)

== ENCOUNTER 2018-01-29 12:35 | Observation (INO) | payer OTHER ==
[~2018-01-29] VITALS: Ht 177.8 cm; Wt 100.2 kg
[~2018-01-29 12:35] MED LIST changes: -AZIT500T PO; -BENZ100C84 PO; -CEFD300C2 PO; -DIPH-416 PO; +HYDR2TAB48 PO; -IMD2 PO; -LEVO1TAB33 PO; +LOVENOX TEACHING KIT SCH; -TEMO1CAP17 PO; -VNCI1 IV; -[UNRECOGNIZED DRUG - CODE] IV
[2018-01-29] MEDS ORDERED: ALBUT/IPRATROP 3MG/0.5MG NEB 3 ML VIAL INH STA (13:01)
[2018-01-29] MEDS ORDERED: SODIUM CHLORIDE 0.9% 500ML 500 ML IV STA (13:08)
[2018-01-29] MEDS ORDERED: NALOXONE HCL 0.4 MG/1 ML VIAL/CARP IV STA (13:08)
[2018-01-29] MEDS ORDERED: OPTIRAY 320 IV PRN (13:15)
[2018-01-29 13:42] LABS: BASO % 0.2 %; BASO ABS # 0.01 K/uL (0-0.2); EOS % 1.5 %; EOS ABS # 0.06 K/uL (0-0.5); HEMATOCRIT 37.7 % (37-47); HEMOGLOBIN 12.2 g/dL (12.0-16.0); IG# 0.01 K/uL (0.00-0.02); LYMPH % 21.8 %; MEAN CELL VOLUME 96.7 fL (80-100); MEAN CORPUSCULAR HEMOGLOBIN 31.3 pg (25-34); MEAN CORPUSCULAR HGB CONC 32.4 g/dl (32-36); MEAN PLATELET VOLUME 8.8 fL (7.4-10.4); MONO % 11.4 %; MONO ABS # 0.47 K/uL (0.11-0.59); NEUT % 64.9 %; NEUT ABS # 2.67 K/uL (1.4-6.5); PLATELET COUNT 153 K/uL (130-400); RED CELL DISTRIBUTION WIDTH CV 15.9 % (11.5-14.5); RED CELL DISTRIBUTION WIDTH SD 56.6 fL (36.4-46.3); WHITE BLOOD COUNT 4.12 K/uL (4.8-10.8)
[2018-01-29] MEDS ORDERED: HYDROCODONE/ACETAMI 10/325 TAB PO STA (13:46)
[2018-01-29 13:47] LABS: ISTAT CREATININE 0.7 mg/dl (0.6-1.3); ISTAT IONIZED CALCIUM 1.13 mmol/l (1.12-1.32); ISTAT POTASSIUM 4.1 mEq/L (3.3-5.0)
[2018-01-29 13:53] LABS: PTT PATIENT 27.6 SECONDS (21.0-31.0)
[2018-01-29] MEDS ORDERED: ENOXAPARIN 100 MG/1ML SYR SQ ONE (14:00)
--- NOTE | 2018-01-29 14:00 | EMERGENCY ROOM VISIT NOTE ---
History Report prepared by Skyler: Attila Brown Under the Supervision of: Dr. Laureano Casarez M.D. First contact with patient: 12:40 Chief Complaint: OVERDOSE (ACCIDENTAL) Stated Complaint: ACCIDENTAL OVERDOSE History of Present Illness The patient is a 32 year old white female with a past medical history of CAP ( community acquired pneumonia), Quinn's sarcoma of bone, fever, hypoxia, left hand surgery, lung biopsy, tonsillectomy who presents to the Emergency Room with complaints of chest pain and shortness of breath that the patient has been dealing with for the past several months. The patient is currently being treating for Quinn Sarcoma via chemotherapy treatments. Her mother notes that the cancer is the reason for the pain in her chest as well as her difficulty with taking a deep breath. The patient is on Oxycodone and Dilaudid for her chronic pain, and took both of the prescriptions simultaneously today. Her oxygen saturation upon arrival to the ED was 87%. She received 0.4 NARCAN and 4 mg of Zofran via EMS prior to arrival. The patient's fiance at bedside notes that she has also been experiencing unusual swelling in her lower extremities. The patient has had fluid drained from under her right lung before, which improved her SOB for a short time. She has had ribs removed secondary to her cancer. Source of History: patient Onset: Several months ago Position: chest Timing: worsening Associated Symptoms: + SOB Note: Lower extremity swelling, Narcotic overdose Review of Systems See HPI for pertinent positives and negatives. A total of ten systems were reviewed and were otherwise negative. Past Medical & Surgical Medical Problems: (1) CAP (community acquired pneumonia) (2) Quinn's sarcoma of bone (3) Fever (4) Hx pulmonary embolism (5) Hypoxia (6) Left Hand Surgery (7) Lung biopsy (8) Open wound of left wrist (9) Tonsillectomy Family History Patient reports no known family medical history. Social History Smoking Status: Former Smoker Alcohol Use: none Drug Use: none Marital Status: single Housing Status: lives with significant other Occupation Status: employed Current/Historical Medications Scheduled Albuterol Sulf (Albuterol Sulfate), 1 VIAL INH Q4H Cyclobenzaprine Hcl (Flexeril), 5 MG PO TID Duloxetine HCl (Cymbalta), 1 CAP PO DAILY Enoxaparin (Lovenox), 1 ML SQ BID Levonorgestrel & Eth Estradiol (Falmina), 1 TAB PO DAILY Levothyroxine Sodium (Levothyroxine Sodium), 88 MCG PO DAILY Ondasetron Odt (Zofran Odt), 4 MG SL Q6H Scheduled PRN Hydromorphone Hcl (Dilaudid), 2 MG PO Q4H PRN for Severe Pain Oxycodone Ir (Roxicodone Ir), 5 MG PO Q6H PRN for Pain Prochlorperazine Maleate (Compazine), 10 MG PO Q6 PRN for Nausea Allergies Coded Allergies: Sulfa Antibiotics (Verified Allergy, Unknown, UNKNOWN, 01/29/18) Physical Exam Vital Signs Date Time Temp Pulse Resp B/P (MAP) Pulse Ox O2 Delivery O2 Flow Rate FiO2 01/29/18 15:20 106 18 113/74 84 Room Air 01/29/18 14:47 107 17 113/78 97 Nasal Cannula 3.0 01/29/18 14:19 109 14 129/90 95 Nasal Cannula 3.0 01/29/18 13:45 121 18 133/95 95 Nasal Cannula 3.0 01/29/18 13:40 87 Room Air 01/29/18 13:32 119 32 132/107 95 Nasal Cannula 3.0 01/29/18 13:27 115 16 130/98 96 Nasal Cannula 3.0 01/29/18 13:11 95 Nasal Cannula 3.0 01/29/18 12:47 112 01/29/18 12:45 97 Nasal Cannula 3.0 01/29/18 12:45 36.4 112 12 120/79 88 Room Air Physical Exam GENERAL: Awake, alert, well-appearing, NAD, pt has purple hair, AOx3, follows commands. HENT: Normocephalic, atraumatic. EYES: Normal conjunctiva. Sclera non-icteric. NECK: Supple. No nuchal rigidity. FROM. RESPIRATORY: CTAB, no rhonchi, wheezing, crackles CARDIAC: Tachycardic and regular, no MRG ABDOMEN: Soft, NTND, BS+ MSK: No chest wall TTP, no trace 1+ pitting edema in the bilateral LE, deformity of the left hand, which is bandaged. There is a port in the right chest wall. NEURO: GCS 15, CN 2-12 intact, moves all 4s on command SKIN: No rash or jaundice noted. There is an incisional scar over the right posterior ribs with an associated X placed on the skin with ink. (likely prior thoracentesis) Medical Decision & Procedures ER Provider Diagnostic Interpretation: Radiology results as stated below per my review and radiologist interpretation: SINGLE VIEW CHEST CLINICAL HISTORY: Pleural effusion. Sarcoma. FINDINGS: An AP, portable, upright chest radiograph is compared to study dated 11/27/2017 and correlated with chest CT dated 11/18/2017 as well as PET/CT dated 01/14/2018. The examination is degraded by portable technique and patient rotation. A right-sided central venous catheter is unchanged in position. The cardiomediastinal silhouette is unremarkable. There is increasing airspace opacification at the lateral right lung base, likely representing the patient's known mass lesion and pleural effusion. Fibrotic change is again seen at the right apex. The left lung appears clear noting linear atelectasis at the left lung base. No pneumothorax is seen. Surgical clips and suture material project over the right apex. Chronic posttraumatic/postoperative deformity is noted in the right sided ribs. IMPRESSION: 1. There is increasing airspace opacification at the right lateral lung base. This likely represents pleural effusion and the patient's known mass lesion. Correlate clinically for evidence of superimposed pneumonia. 2. The left lung is clear as visualized. Electronically signed by: Sulaiman Simmons M.D. 01/29/2018 2:15 PM Dictated Date/Time: 01/29/2018 2:12 PM Laboratory Results Test 01/29/18 13:26 01/29/18 13:29 01/29/18 13:30 01/29/18 13:35 Prothrombin Time 10.8 SECONDS (9.0-12.0) Prothromb Time International Ratio 1.0 (0.9-1.1) Activated Partial Thromboplast Time 27.6 SECONDS (21.0-31.0) Partial Thromboplastin Ratio 1.1 Troponin I < 0.015 ng/ml (0-0.045) Pro-B-Type Natriuretic Peptide 413 pg/ml (0-450) Venous Blood pH 7.38 (7.36-7.41) Venous Blood Partial Pressure CO2 48 mmHg (38.0-50.0) Venous Blood Partial Pressure O2 46 mmHg Venous Blood HCO3 28 mmol/L Venous Blood Oxygen Saturation 77.2 % Venous Blood Base Excess 2.1 mEq/L Influenza Type A Antigen Neg for Influ A (NEG) Influenza Type B Antigen Neg for Influ B (NEG) Bedside Hemoglobin 9.2 g/dl (12.0-16.0) Bedside Hematocrit 27 % (37-47) Bedside Sodium 139 mEq/L (135-144) Bedside Potassium 4.1 mEq/L (3.3-5.0) Bedside Chloride 100 mEq/L (101-112) Bedside Total CO2 27 mEq/l (24-31) Bedside Blood Urea Nitrogen 6 mg/dl (7-18) Bedside Creatinine 0.7 mg/dl (0.6-1.3) Bedside Glucose (other) 92 mg/dl (70-99) Bedside Ionized Calcium (Tyrone) 1.13 mmol/l (1.12-1.32) Test 01/29/18 15:29 Urine Color YELLOW Urine Appearance CLEAR (CLEAR) Urine pH 6.5 (4.5-7.5) Urine Specific [place] 1.015 (1.000-1.030) Urine Protein NEG (NEG) Urine Glucose (UA) NEG (NEG) Urine Ketones NEG (NEG) Urine Occult Blood NEG (NEG) Urine Nitrite NEG (NEG) Urine Bilirubin NEG (NEG) Urine Urobilinogen NEG (NEG) Urine Leukocyte Esterase NEG (NEG) Laboratory results reviewed by me Medications Administered Medications (Trade) Dose Ordered Sig/Emily Route Start Time Stop Time Status Last Admin Dose Admin Albuterol/ Ipratropium (Duoneb) 3 ml NOW STAT INH 01/29/18 13:01 01/29/18 13:02 DC 01/29/18 13:16 3 ML Sodium Chloride 500 ml @ 999 mls/hr Q31M STAT IV 01/29/18 13:08 01/29/18 13:41 DC 01/29/18 13:16 999 MLS/HR Naloxone HCl (Narcan Inj) 0.4 mg NOW STAT IV 01/29/18 13:08 01/29/18 13:10 DC 01/29/18 13:16 0.4 MG Acetaminophen/ Hydrocodone Bitart ([place] 10/325 Tab) 1 tab ONE STAT PO 01/29/18 13:46 01/29/18 13:47 DC 01/29/18 13:51 1 TAB Enoxaparin Sodium (Lovenox Inj) 100 mg NOW ONCE SQ 01/29/18 14:00 01/29/18 14:01 DC 01/29/18 15:22 100 MG Miscellaneous (Lovenox Teaching Kit) 1 ea UD N/A 01/29/18 14:15 02/28/18 14:14 01/29/18 15:47 1 EA Cefepime HCl 2000 mg/Dextrose 122 ml @ 200 mls/hr ONE STAT IV 01/29/18 15:43 01/29/18 16:19 DC 01/29/18 16:57 200 MLS/HR Levofloxacin (Levaquin / D5W) 750 mg NOW ONCE IV 01/29/18 15:45 01/29/18 15:46 DC 01/29/18 16:57 750 MG ECG Per My Interpretation Indication: chest pain Rate (beats per minute): 107 Rhythm: sinus tachycardia Findings: T-wave inversion (Single TWI in lead 3), other (normal intervals, LAD no other STS or TWI) ED Course 1251: The patient was evaluated in room B6. A complete history and physical exam was performed. 1301: Ordered Duoneb 3 mL INH. 1308: Ordered Narcan 0.4 mg IV, Sodium Chloride 500 mL @ 999 mL/hr IV. 1334: I checked on the patient at this time. I gave her more NARCAN and she is awake an alert. She is feeling her pain at this time. 1337: The patient's O2 saturation is normal at this time, following second dosage of NARCAN. 1346: Ordered Hydrocodone 1 tab PO. 1400: Ordered Lovenox 100 mg SQ. 1503: I updated the family. They are comfortable with the plan. I stressed that they needed to contact her oncology clinic for long-term narcotics. 1543: The patient became hypoxic again at this time. I will consult the hospitalist service for admission. 1545: Ordered Levofloxacin 750 mg IV. 1553: I discussed the case with Tiff Bal [facility] Hospitalist PATRICIA Aguilar. She will evaluate the patient for further treatment. Medical Decision The patient is a 32 year old white female with a past medical history of CAP ( community acquired pneumonia), Quinn's sarcoma of bone, fever, hypoxia, left hand surgery, lung biopsy, tonsillectomy who presents to the Emergency Room with complaints of chest pain and shortness of breath that the patient has been dealing with for the past several months. Patient was seen and evaluated the bedside. Patient does have a prior history of Quinn sarcoma and a left upper extremity wound for which she was being seen today. Patient was noted to be mildly lethargic but did have decreased O2 sats of 88%. The patient was referred here for further evaluation and treatment. Upon further review the patient was recently admitted and discharged from [facility] in the Department of thoracic surgery. Patient did have a recent thoracentesis completed. Patient was given Narcan in route and was given a subsequent dose here. After being given a second dose of Narcan the patient did not have any issues with desaturating. Upon further review of a fax the patient does have a known right lower lobe PE so a CT PE protocol was not ordered but just a chest x-ray. Also understood that the patient was supposed to switch from her Eliquis to Lovenox. Patient was given a first dose of Lovenox 100 mg subcu and was supposed to be continued. I did speak with her human services case manager in order to help facilitate records being sent to her primary surgeons back pain. Patient did have blood work completed, EKG, troponin, chest x-ray. Patient was given 1 p.o. [place] given that she was in significant pain and the patient is on p.o. Dilaudid as well as OxyIR's. Believe that the patient's likely lethargy and hypoxia was secondary to concomitant use of both narcotics which she had not done prior. Patient was advised that she should not take both the same time and should use them separately. Patient was also told that they are habit forming and may cause respiratory problems. WBC WNL. H/H chronic stable anemia (POC was perhaps not accurate), CXR w/ effusion. Discussed results with patient but even at bedside patietn w/ hypoxia. Patient does have known RLL PE, pleural effusion, couldn't rule out PNX so trx'ed for HCAP. Also may be element of pain induced hypoventilation. Discussed w/ hospitalist to further eval and trx patient. Medication Reconcilliation Current Medication List: was personally reviewed by me Blood Pressure Screening Patient's blood pressure: Normal blood pressure Consults Time Called: [phone] Consulting Physician: Tiff Posada Hospitalist JASON Returned Call: [phone] I discussed the case with Tiff Bal [facility] Hospitalist JASON. She will evaluate the patient for further treatment. Impression Primary Impression: Overdose Additional Impressions: Pleural effusion Healthcare-associated pneumonia Scribe Attestation The scribe's documentation has been prepared under my direction and personally reviewed by me in its entirety. I confirm that the note above accurately reflects all work, treatment, procedures, and medical decision making performed by me. Departure Information Dispostion Being Evaluated By Hospitalist Prescriptions Enoxaparin (LOVENOX) 100 Mg/Ml Inj 1 ML SQ BID for 30 Days, #60 DOSE Prov: Laureano Casarez M.D. 01/29/18 Referrals Dandy Palmer, D.O. (PCP) Patient Instructions ED Overdose Accidental, ED Overdose Opiate, My [facility] Problem Qualifiers Primary Impression: Overdose Encounter type: initial encounter Injury intent: accidental or unintentional Qualified Codes: T50.901A - Poisoning by unspecified drugs, medicaments and biological substances, accidental (unintentional), initial encounter
[2018-01-29 14:08] LABS: INFLUENZA B ANTIGEN Neg for Influ B (NEG)
[2018-01-29] MEDS ORDERED: LOVENOX TEACHING KIT SCH (14:15)
--- NOTE | 2018-01-29 14:16 | DIAGNOSTIC IMAGING REPORT ---
SINGLE VIEW CHEST CLINICAL HISTORY: Pleural effusion. Sarcoma. FINDINGS: An AP, portable, upright chest radiograph is compared to study dated 11/27/2017 and correlated with chest CT dated 11/18/2017 as well as PET/CT dated 01/14/2018. The examination is degraded by portable technique and patient rotation. A right-sided central venous catheter is unchanged in position. The cardiomediastinal silhouette is unremarkable. There is increasing airspace opacification at the lateral right lung base, likely representing the patient's known mass lesion and pleural effusion. Fibrotic change is again seen at the right apex. The left lung appears clear noting linear atelectasis at the left lung base. No pneumothorax is seen. Surgical clips and suture material project over the right apex. Chronic posttraumatic/postoperative deformity is noted in the right sided ribs. IMPRESSION: 1. There is increasing airspace opacification at the right lateral lung base. This likely represents pleural effusion and the patient's known mass lesion. Correlate clinically for evidence of superimposed pneumonia. 2. The left lung is clear as visualized. Electronically signed by: Sulaiman Simmons M.D. 01/29/2018 2:15 PM Dictated Date/Time: 01/29/2018 2:12 PM
[2018-01-29] MEDS ORDERED: ENOXAPARIN 1 MG/KG SQ SCH (15:00)
[2018-01-29] MEDS ORDERED: ENOX100I SQ (15:31)
[2018-01-29] MEDS ORDERED: CEFEPIME IV 2,000 MG in DEXTROSE 5% 100ML 100 ML IV STA (15:43)
[2018-01-29] MEDS ORDERED: VANCOMYCIN CONSULT ACTIVE PRN (15:45)
[2018-01-29] MEDS ORDERED: LEVAQUIN 750MG / 150ML D5W IV ONE (15:45)
[2018-01-29] MEDS ORDERED: LEVOTAB2 PO (16:18)
[2018-01-29] MEDS ORDERED: ZFRODT4HP PO (16:18)
[2018-01-29] MEDS ORDERED: CYM/30 PO (16:20)
[2018-01-29] MEDS ORDERED: ONDANSETRON INJ 2 MG/ML 2 ML VIAL IV PRN (17:00)
[2018-01-29] MEDS ORDERED: ACETAMINOPHEN 325 MG TAB PO PRN (17:00)
[2018-01-29] MEDS ORDERED: CYCL5TAB PO (17:12)
[2018-01-29] MEDS ORDERED: ALBINS INH (17:12)
[2018-01-29] MEDS ORDERED: ONDA4TAB10 SL (17:12)
[2018-01-29] MEDS ORDERED: OXYC1TAB3 PO (17:12)
[2018-01-29] MEDS ORDERED: ONDANSETRON 4MG OD TAB SL PRN (17:15)
[2018-01-29] MEDS ORDERED: LEVALBUTEROL 0.63MG/3 ML NEB INH PRN (17:15)
[2018-01-29] MEDS ORDERED: PROCHLORPERAZINE MALEATE 10 MG TAB PO PRN (17:15)
[2018-01-29] MEDS ORDERED: OXYCODONE HCL IR 5 MG TAB (IMMEDIATE RELEASE) PO PRN (17:15)
[2018-01-29 17:22] VITALS: O2SAT 84; Ht 177.8 cm; Wt 100.2 kg
[2018-01-29] MEDS ORDERED: VANCOMYCIN IV 1,500 MG in SODIUM CHLORIDE 0.9% 500ML 500 ML IV STA (17:35)
[2018-01-29 17:53] LABS: CALCIUM 8.2 mg/dl (8.5-10.1); CREATININE 0.71 mg/dl (0.60-1.20); POTASSIUM 4.2 mmol/L (3.5-5.1)
[2018-01-29] MEDS: HYDROmorphone HCL 2 MG TAB PO PRN ×2 (19:11→21:34)
[2018-01-29 19:15] VITALS: BP 117/71; PULSE 109; TEMP 36.6; O2SAT 96
--- NOTE | 2018-01-29 19:30 | History and Physical ---
History & Physical Date of Service Jan 29, 2018. History & Physical This is a 32 year old female with a PMH of Quinn's sarcoma, no longer on chemotherapy s/p partial R upper lobe resection, hx. of PE on long-term anticoagulation, recently seen in the hospital for pleural effusion on the R side which was tapped. She was given Dilaudid for pain and was told to use it for breakthrough in place of Oxycodone IR. Due to a misunderstanding, she took both at the same time and accidentally overdosed. She was given Narcan en route and then another dose of Narcan in the [facility] ED. She felt better and plan was for possible discharge, but patient became hypoxic on room air multiple times and it was decided to admit her. She has no fevers/chills, denies chest pain, denies shortness of breath. She has pain with deep inspiration. VITALS: Last Vital Signs Documentation Date Time Temp Pulse Resp B/P (MAP) Pulse Ox O2 Delivery O2 Flow Rate FiO2 01/29/18 19:02 113 16 146/84 95 Nasal Cannula 3.0 01/29/18 18:04 36.8 GEN: +lethargic HEENT: slow extraocular movements, sluggish pupillary response CVS: +S1, S2, tachycardic LUNGS: CTA b/l, pain on the R chest wall, no wheezing ABD: soft, NT/ND EXT: +1 pitting pedal edema b/l LE Hypoxia Quinn's Sarcoma - likely related to a combination of poor inspiratory response/pain from R rib Quinn's Sarcoma, hx. of PE, hx. of R upper lobe resection, recent pleural effusion and opioid overdose - unlikely infectious; given abx. in the ED - plan is to admit the patient overnight, let her clear up from the opioid overdose - will get a two step in the AM - will likely need portable O2 at baseline - for the pain; should be on oxycodone extended release with PO Dilaudid for breakthrough pain Hx. of PE - patient had been on Xarelto since January 02 - will switch to Lovenox as per surgery; she is to have a possible rib resection secondary to Sarcoma - Lovenox teaching provided, but may need more prior to discharge
--- NOTE | 2018-01-29 19:50 | History and Physical ---
History & Physical Date & Time of Service: Jan 29, 2018 at 17:21 Chief Complaint: Accidental Overdose Primary Care Physician: Dandy Palmer D.OMary History of Present Illness Source: patient, parent, clinic records, hospital records Pt is 32 y/o F with PMH Quinn sarcoma follows with [facility] Dr Kevin presented to ER from the wound clinic with complaint of drowsiness and hypoxia. Last chemo 01/02/18. Patient was hospitalized at [facility] for 3 days, d/c yesterday on . Patient reports was having increased right rib pain and shortness of breath which prompted hospitalization. She reports had CT scan which showed her known PE and mass to right lung and had right pleural effusion and had approximately 250 ml removed. Patient reports O2 sats checked every couple of hours while was hospitalized at [facility] but does not recall being on continuous monitoring. History of hypoxia in October when had pneumonia, otherwise denies history of hypoxia. Patient also reports had pain meds adjusted and is on OxyIR and Dilaudid was added also. Patient was unaware that she was not to take both at the same time and this morning took both OxyIR and Dilaudid same time. Patient was given Narcan by EMS and given an additional dose of Narcan in the ER. Patient since awake alert. Patient was requesting to go home and was taken off of oxygen and after approximately 10 minutes sats dropped down to 80% while patient sitting upright in a week. Patient placed back on 3 L NC and sats in 90s. Patient denies any cough recently. Denies any increased shortness of breath. Reports chronic right-sided chest pain with inspiration secondary to mass in known PE. Patient on Xarelto and today was to transition to Lovenox for planned surgical procedure in a couple of weeks. Denies fever/chills, diaphoresis, N/V/D/C, LITTLE, dizziness, syncope, vision changes, neck pain, orthopnea, palpitations, hemoptysis, sore throat, choking, otalgia, rhinorrhea, abdominal pain, extremity edema, rashes, urinary symptoms. In ER CXR: There is increasing airspace opacification at the right lateral lung base. This likely represents pleural effusion and the patient's known mass lesion. Correlate clinically for evidence of superimposed pneumonia. Patient given cefepime, vancomycin, Levaquin, DuoNeb, 500 mL NSS bolus, Lovenox transition started. 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 (4) Left Hand Surgery Status: Resolved (5) Lung biopsy Status: Resolved (6) Open wound of left wrist Permanent Comment: follows with wound clinic Status: Chronic (7) Tonsillectomy Status: Resolved Family History Asthma FH: Hodgkins disease FH: brain cancer FH: breast cancer Hypertension Social History Smoking Status: Former Smoker Smokeless Tobacco Use: No Alcohol Use: none Drug Use: none Marital Status: single Housing status: lives with family Occupational Status: employed Allergies Coded Allergies: Sulfa Antibiotics (Verified Allergy, Unknown, UNKNOWN, 01/29/18) Home Medications Scheduled Albuterol Sulf (Albuterol Sulfate), 1 VIAL INH Q4H Cyclobenzaprine Hcl (Flexeril), 5 MG PO TID Duloxetine HCl (Cymbalta), 1 CAP PO DAILY Enoxaparin (Lovenox), 1 ML SQ BID Levonorgestrel & Eth Estradiol (Falmina), 1 TAB PO DAILY Levothyroxine Sodium (Levothyroxine Sodium), 88 MCG PO DAILY Ondasetron Odt (Zofran Odt), 4 MG SL Q6H Scheduled PRN Hydromorphone Hcl (Dilaudid), 2 MG PO Q4H PRN for Severe Pain Oxycodone Ir (Roxicodone Ir), 5 MG PO Q6H PRN for Pain Prochlorperazine Maleate (Compazine), 10 MG PO Q6 PRN for Nausea Review of Systems See HPI for pertinent positives & negatives. All other systems reviewed and were otherwise negative Physical Exam Vital Signs Date Time Temp Pulse Resp B/P (MAP) Pulse Ox O2 Delivery O2 Flow Rate FiO2 01/29/18 15:20 106 18 113/74 84 Room Air 01/29/18 14:47 107 17 113/78 97 Nasal Cannula 3.0 01/29/18 14:19 109 14 129/90 95 Nasal Cannula 3.0 01/29/18 13:45 121 18 133/95 95 Nasal Cannula 3.0 01/29/18 13:40 87 Room Air 01/29/18 13:32 119 32 132/107 95 Nasal Cannula 3.0 01/29/18 13:27 115 16 130/98 96 Nasal Cannula 3.0 01/29/18 13:11 95 Nasal Cannula 3.0 01/29/18 12:47 112 01/29/18 12:45 97 Nasal Cannula 3.0 01/29/18 12:45 112 12 120/79 88 Room Air General Appearance: WD/WN, no apparent distress, + pertinent finding (Chronic ill-appearing) Head: normocephalic, atraumatic Eyes: normal inspection, sclerae normal ENT: hearing grossly normal, pharynx normal, + pertinent finding (Mucous membranes moist) Neck: supple, trachea midline Respiratory/Chest: chest non-tender (Right lateral ribs), lungs clear, normal breath sounds Cardiovascular: no murmur, + tachycardia (106) Abdomen/GI: normal bowel sounds, non tender, soft Extremities/Musculoskelatal: normal inspection, no calf tenderness, normal capillary refill, non-tender, + pedal edema (mild bilateral) Neurologic/Psych: alert, normal mood/affect, oriented x 3 Skin: warm/dry Diagnostics Laboratory Results Results Past 24 Hours Test 01/29/18 13:26 01/29/18 13:29 01/29/18 13:30 01/29/18 13:35 Range/Units White Blood Count 4.12 4.8-10.8 K/uL Red Blood Count 3.90 4.2-5.4 M/uL Hemoglobin 12.2 12.0-16.0 g/dL Hematocrit 37.7 37-47 % Mean Corpuscular Volume 96.7 80-100 fL Mean Corpuscular Hemoglobin 31.3 25-34 pg Mean Corpuscular Hemoglobin Concent 32.4 32-36 g/dl Platelet Count 153 130-400 K/uL Mean Platelet Volume 8.8 7.4-10.4 fL Neutrophils (%) (Auto) 64.9 % Lymphocytes (%) (Auto) 21.8 % Monocytes (%) (Auto) 11.4 % Eosinophils (%) (Auto) 1.5 % Basophils (%) (Auto) 0.2 % Neutrophils # (Auto) 2.67 1.4-6.5 K/uL Lymphocytes # (Auto) 0.90 1.2-3.4 K/uL Monocytes # (Auto) 0.47 0.11-0.59 K/uL Eosinophils # (Auto) 0.06 0-0.5 K/uL Basophils # (Auto) 0.01 0-0.2 K/uL RDW Standard Deviation 56.6 36.4-46.3 fL RDW Coefficient of Variation 15.9 11.5-14.5 % Immature Granulocyte % (Auto) 0.2 % Immature Granulocyte # (Auto) 0.01 0.00-0.02 K/uL Prothrombin Time 10.8 9.0-12.0 SECONDS Prothromb Time International Ratio 1.0 0.9-1.1 Activated Partial Thromboplast Time 27.6 21.0-31.0 SECONDS Partial Thromboplastin Ratio 1.1 Troponin I < 0.015 0-0.045 ng/ml Pro-B-Type Natriuretic Peptide 413 0-450 pg/ml Venous Blood pH 7.38 7.36-7.41 Venous Blood Partial Pressure CO2 48 38.0-50.0 mmHg Venous Blood Partial Pressure O2 46 mmHg Venous Blood HCO3 28 mmol/L Venous Blood Oxygen Saturation 77.2 % Venous Blood Base Excess 2.1 mEq/L Influenza Type A Antigen Neg for Influ A NEG Influenza Type B Antigen Neg for Influ B NEG Bedside Hemoglobin 9.2 12.0-16.0 g/dl Bedside Hematocrit 27 37-47 % Bedside Sodium 139 135-144 mEq/L Bedside Potassium 4.1 3.3-5.0 mEq/L Bedside Chloride 100 101-112 mEq/L Bedside Total CO2 27 24-31 mEq/l Anion Gap 17.0 16-25 mmol/L Bedside Blood Urea Nitrogen 6 7-18 mg/dl Bedside Creatinine 0.7 0.6-1.3 mg/dl Bedside Glucose (other) 92 70-99 mg/dl Bedside Ionized Calcium (Tyrone) 1.13 1.12-1.32 mmol/l Test 01/29/18 15:29 01/29/18 17:01 Range/Units Urine Color YELLOW Urine Appearance CLEAR CLEAR Urine pH 6.5 4.5-7.5 Urine Specific [place] 1.015 1.000-1.030 Urine Protein NEG NEG Urine Glucose (UA) NEG NEG Urine Ketones NEG NEG Urine Occult Blood NEG NEG Urine Nitrite NEG NEG Urine Bilirubin NEG NEG Urine Urobilinogen NEG NEG Urine Leukocyte Esterase NEG NEG Microbiology Results 01/29/18 Blood Culture, Received Pending 01/29/18 Blood Culture, Received Pending Diagnostic Radiology CXR: IMPRESSION: 1. There is increasing airspace opacification at the right lateral lung base. This likely represents pleural effusion and the patient's known mass lesion. Correlate clinically for evidence of superimposed pneumonia. 2. The left lung is clear as visualized. EKG EKG: Sinus tachycardia, rate 107 Impression Assessment and Plan HYPOXIA Patient to ER with drowsiness after taking both oxycodone and Dilaudid. Patient received Narcan 2 in awake and alert. Hypoxia on room air increased to 97% on 3 L NC. Hypoxia initially thought to be secondary to unintentional narcotic overdose. Trial without oxygen sats down into the 80s on room air. Patient with known PE is currently on Xarelto, transition to Lovenox today. Today CXR: There is increasing airspace opacification at the right lateral lung base. This likely represents pleural effusion and the patient's known mass lesion. Patient given cefepime, vancomycin, Levaquin and ER for possible HCAP. DDX: Hypoxia secondary to poor inspiration secondary to chronic right-sided chest pain from sarcoma, pain from current PE, recent pleural effusion that was drained -Pending blood cultures -Hold on further antibiotics at this point in time as patient afebrile no leukocytosis low suspicion for pneumonia -Continuous O2 monitoring supplemental oxygen -xopenex neb as needed -Monitor CBC -Plan for two-step tomorrow HISTORY PE Patient on Xarelto since 01/02/18. Patient switched to Lovenox today for planned procedure in couple of weeks -Continue Lovenox QUINN SARCOMA Last chemo 01/02/18 -We will hold OxyIR and change to oxycodone sustained release and continue Dilaudid p.o. for breakthrough severe pain -Zofran as needed nausea HYPOTHYROIDISM -Continue levothyroxine DEPRESSION -Continue Cymbalta DVT Prophylaxis -On Lovenox for PE Disposition admit med Full Code Follows with Dr Palmer for routine care Pt was seen with Dr Mehta. See addendum Resuscitation Status Full code VTE Prophylaxis Will order VTE Prophylaxis: Yes Additional Copies To Dandy Palmer, Raya.O.
[2018-01-29] MEDS: OXYCODONE HCL 10 MG TABCR (OXYCONTIN) PO SCH (20:01)
[2018-01-29] MEDS: CYCLOBENZAPRINE HCL 10 MG TAB PO SCH (20:15)
[2018-01-29] MEDS: MAGNESIUM HYDROXIDE SUSP 30 ML UDC PO PRN (20:18)
[2018-01-29] MEDS ORDERED: IV FLUIDS COMPLETED PRN (21:30)
[2018-01-29] MEDS ORDERED: NURSING VERBAL MED ORDER ONE (21:30)
[2018-01-29 23:25] VITALS: BP 125/71; PULSE 123; TEMP 37.1; O2SAT 97
[2018-01-29] MEDS: *ORAL CONTRACEPTIVE*ORDER AWAITING ACTION SCH (23:37)
[2018-01-30] VITALS (10 sets, daily range): BP systolic 102–121; BP diastolic 64–76; PULSE 104–126; TEMP 36–39.3; O2SAT 90–97
[2018-01-30] MEDS: HYDROmorphone HCL 2 MG TAB PO PRN ×4 (01:26→13:37)
[2018-01-30] MEDS ORDERED: ENOXAPARIN 100 MG/1ML SYR SQ SCH ×2 (04:00→18:00)
[2018-01-30 05:53] LABS: BASO % 0.1 %; BASO ABS # 0.01 K/uL (0-0.2); EOS % 0.1 %; EOS ABS # 0.01 K/uL (0-0.5); HEMATOCRIT 28.2 % (37-47); HEMOGLOBIN 9.1 g/dL (12.0-16.0); IG# 0.02 K/uL (0.00-0.02); LYMPH % 20.4 %; LYMPH ABS # 1.95 K/uL (1.2-3.4); MEAN CELL VOLUME 95.6 fL (80-100); MEAN CORPUSCULAR HEMOGLOBIN 30.8 pg (25-34); MEAN CORPUSCULAR HGB CONC 32.3 g/dl (32-36); MEAN PLATELET VOLUME 8.5 fL (7.4-10.4); MONO % 13.6 %; NEUT % 65.6 %; NEUT ABS # 6.25 K/uL (1.4-6.5); PLATELET COUNT 189 K/uL (130-400); RED CELL DISTRIBUTION WIDTH CV 16.1 % (11.5-14.5); RED CELL DISTRIBUTION WIDTH SD 56.9 fL (36.4-46.3); WHITE BLOOD COUNT 9.54 K/uL (4.8-10.8)
[2018-01-30 06:21] LABS: CALCIUM 8.4 mg/dl (8.5-10.1); CREATININE 0.76 mg/dl (0.60-1.20); POTASSIUM 3.7 mmol/L (3.5-5.1)
[2018-01-30] MEDS ORDERED: LEVOTHYROXINE 88 MCG TAB PO SCH (06:30)
[2018-01-30] MEDS: CYCLOBENZAPRINE HCL 10 MG TAB PO SCH ×3 (08:00→13:49)
[2018-01-30] MEDS ORDERED: DULOXETINE (CYMBALTA) 30 MG CAP PO SCH (08:00)
[2018-01-30] MEDS: *ORAL CONTRACEPTIVE*ORDER AWAITING ACTION SCH ×2 (08:00→15:51)
[2018-01-30] MEDS: OXYCODONE HCL 10 MG TABCR (OXYCONTIN) PO SCH (08:04)
[2018-01-30] MEDS: MAGNESIUM HYDROXIDE SUSP 30 ML UDC PO PRN (08:10)
[2018-01-30] MEDS ORDERED: POLYETHYLENE (MIRALAX) 17 GM PACK PO STA (12:20)
[2018-01-30] MEDS ORDERED: BISACODYL 5 MG TABEC PO ONE (12:30)
--- NOTE | 2018-01-30 16:30 | Discharge Instructions ---
Discharge Instructions Date of Service Jan 30, 2018. Admission Reason for Admission: Hypoxia Discharge Discharge Diagnosis / Problem: SHORTNESS OF BREATH /HYPOXIA /PULMONARY EMBOLISM Discharge Goals Goal(s): Decrease discomfort, Improve disease control, Diagnostic testing, Therapeutic intervention Activity Recommendations Activity Limitations: resume your previous activity . Instructions / Follow-Up Instructions / Follow-Up HOSPITAL FOLLOW UP : 02/04/2018 @ 11:[address] Dandy Palmer DO [facility] LAB WORK : COMPLETE BLOOD COUNT ON 02/04/18 Current Hospital Diet Patient's current hospital diet: Regular Diet Discharge Diet Recommended Diet: Regular Diet Pending Studies Studies pending at discharge: no Medical Emergencies . Who to Call and When: Medical Emergencies: If at any time you feel your situation is an emergency, please call 911 immediately. . Non-Emergent Contact Non-Emergency issues call your: Primary Care Provider . . "Provider Documentation" section prepared by Dee Ledesma. .
--- NOTE | 2018-01-30 17:59 | Discharge Summary ---
Discharge Summary Date of Service Jan 30, 2018. Discharge Summary Admission Date: Jan 29, 2018 at 16:54 Discharge Date: Jan 30, 2018 Discharge Disposition: Home Principal Diagnosis: SHORTNESS OF BREATH /HYPOXIA /UNINTENTIONAL /ACCIDENTAL DRUG OVERDOSE Medication Reconciliation Continued Medications: Albuterol Sulf (Albuterol Sulfate) 2.5 Mg/3 Ml Nebu 1 VIAL INH Q4H for SOB/Wheezing Cyclobenzaprine Hcl (Flexeril) 5 Mg Tab 5 MG PO TID for Muscle Spasms, TAB PRN Duloxetine HCl (Cymbalta) 30 Mg Cap 1 CAP PO DAILY, CAP Enoxaparin (Lovenox) 100 Mg/Ml Inj 1 ML SQ BID for 30 Days, #60 DOSE Hydromorphone Hcl (Dilaudid) 2 Mg Tab 2 MG PO Q4H PRN for Severe Pain, TAB Levonorgestrel & Eth Estradiol (Falmina) 1 Tab Tab 1 TAB PO DAILY Levothyroxine Sodium (Levothyroxine Sodium) 88 Mcg Tab 88 MCG PO DAILY, TAB Ondasetron Odt (Zofran Odt) 4 Mg Tab 4 MG SL Q6H for Nausea, #6 TAB Oxycodone Ir (Roxicodone Ir) 5 Mg Tab 5 MG PO Q6H PRN for Pain, TAB Prochlorperazine Maleate (Compazine) 10 Mg Tab 10 MG PO Q6 PRN for Nausea, TAB NAUSEA/VOMITING Admission Information HPI (per Admitting provider): Pt is 32 y/o F with PMH Quinn sarcoma follows with [facility] Dr Kevin presented to ER from the wound clinic with complaint of drowsiness and hypoxia. Last chemo 01/02/18. Patient was hospitalized at [facility] for 3 days, d/c yesterday on . Patient reports was having increased right rib pain and shortness of breath which prompted hospitalization. She reports had CT scan which showed her known PE and mass to right lung and had right pleural effusion and had approximately 250 ml removed. Patient reports O2 sats checked every couple of hours while was hospitalized at [facility] but does not recall being on continuous monitoring. History of hypoxia in October when had pneumonia, otherwise denies history of hypoxia. Patient also reports had pain meds adjusted and is on OxyIR and Dilaudid was added also. Patient was unaware that she was not to take both at the same time and this morning took both OxyIR and Dilaudid same time. Patient was given Narcan by EMS and given an additional dose of Narcan in the ER. Patient since awake alert. Patient was requesting to go home and was taken off of oxygen and after approximately 10 minutes sats dropped down to 80% while patient sitting upright in a week. Patient placed back on 3 L NC and sats in 90s. Patient denies any cough recently. Denies any increased shortness of breath. Reports chronic right-sided chest pain with inspiration secondary to mass in known PE. Patient on Xarelto and today was to transition to Lovenox for planned surgical procedure in a couple of weeks. Denies fever/chills, diaphoresis, N/V/D/C, LITTLE, dizziness, syncope, vision changes, neck pain, orthopnea, palpitations, hemoptysis, sore throat, choking, otalgia, rhinorrhea, abdominal pain, extremity edema, rashes, urinary symptoms. In ER CXR: There is increasing airspace opacification at the right lateral lung base. This likely represents pleural effusion and the patient's known mass lesion. Correlate clinically for evidence of superimposed pneumonia. Patient given cefepime, vancomycin, Levaquin, DuoNeb, 500 mL NSS bolus, Lovenox transition started. Physical Exam (per Admitting): General Appearance: WD/WN, no apparent distress, + pertinent finding ( Chronic ill-appearing) Head: normocephalic, atraumatic Eyes: normal inspection, sclerae normal ENT: hearing grossly normal, pharynx normal, + pertinent finding (Mucous membranes moist) Neck: supple, trachea midline Respiratory/Chest: chest non-tender (Right lateral ribs), lungs clear, normal breath sounds Cardiovascular: no murmur, + tachycardia (106) Abdomen/GI: normal bowel sounds, non tender, soft Extremities/Musculoskelatal: normal inspection, no calf tenderness, normal capillary refill, non-tender, + pedal edema (mild bilateral) Neurologic/Psych: alert, normal mood/affect, oriented x 3 Skin: warm/dry Hospital Course Offers no complaint-very eager to be discharged Management made for home oxygen PHYSICAL EXAM: General: No sign of distress HEENT: Sclera nonicteric Lungs: Diminished breath sounds Heart: Regular S1-S2 Abdomen: Soft nontender Extremity: Deformity on left hand secondary to Quinn's sarcoma -Neuro: Alert awake oriented 3 no focal neurological deficit ASSESSMENT AND PLAN HYPOXIA/ACCIDENTAL DRUG OVERDOSE Presented to ER with drowsiness after taking both oxycodone and Dilaudid. Patient received Narcan 2 in awake and alert. Hypoxia on room air increased to 97% on 3 L NC. Trial without oxygen sats down into the 80s on room air. Patient with known PE was on Xarelto, transitioned to therapeutic Lovenox today. CXR: There is increasing airspace opacification at the right lateral lung base. This likely represents pleural effusion and the patient's known mass lesion. Patient given cefepime, vancomycin, Levaquin and ER for possible HCAP. -No evidence of any fever chills, no cough -Antibiotic discontinue/no evidence of pneumonia -Possible hypoxia secondary to poor inspiratory effect secondary to chronic right-sided chest pain from cervical/pulmonary embolism/malignant pleural effusion -Two-step pulse oximetry done -Patient requires to 3 L via nasal cannula on ambulation, 2 L at rest -Management made for home oxygen, portable tank delivered HISTORY PE Patient on Xarelto since 01/02/18. Patient switched to Lovenox today for planned procedure in couple of weeks at [facility] -Continue Lovenox QUINN SARCOMA Last chemo 01/02/18 -Follows with [facility] HYPOTHYROIDISM -Continue levothyroxine DEPRESSION -Continue Cymbalta DVT Prophylaxis -On Lovenox for PE DISPOSITION: Stable to be discharged home today Total time spent on discharge = This includes examination of the patient, discharge planning, medication reconciliation, and communication with other providers. Discharge Instructions Discharge Instructions Date of Service Jan 30, 2018. Admission Reason for Admission: Hypoxia Discharge Discharge Diagnosis / Problem: SHORTNESS OF BREATH /HYPOXIA /UNINTENTIONAL DRUG OVERDOSE Discharge Goals Goal(s): Decrease discomfort, Improve disease control, Diagnostic testing, Therapeutic intervention Activity Recommendations Activity Limitations: resume your previous activity . Instructions / Follow-Up Instructions / Follow-Up HOSPITAL FOLLOW UP : 02/04/2018 @ 11:[address] Dandy Palmer, [facility] LAB WORK : COMPLETE BLOOD COUNT ON 02/04/18 Current Hospital Diet Patient's current hospital diet: Regular Diet Discharge Diet Recommended Diet: Regular Diet Pending Studies Studies pending at discharge: no Medical Emergencies . Who to Call and When: Medical Emergencies: If at any time you feel your situation is an emergency, please call 911 immediately. . Non-Emergent Contact Non-Emergency issues call your: Primary Care Provider . . "Provider Documentation" section prepared by Dee Ledesma. . Additional Copies To Dandy Palmer D.O.
== END 2018-01-30 18:42 | disposition home health service (06) ==
LOC: EDBD 12:35 → C.EDB 12:36 → C.4E 16:54 → ENRESERV 18:48
PROVIDERS: ADMIT Family Medicine; ATTEND Hospitalist
DX: R06.02 Shortness of breath (principal); R09.02 Hypoxemia; T50.901A Poisoning by unspecified drugs, medicaments and biological substances, accidental (unintentional), initial encounter; Z79.899 Other long term (current) drug therapy; F32.9 Major depressive disorder, single episode, unspecified; C41.9 Malignant neoplasm of bone and articular cartilage, unspecified; E03.9 Hypothyroidism, unspecified; Z79.01 Long term (current) use of anticoagulants; Z86.711 Personal history of pulmonary embolism; Z90.89 Acquired absence of other organs; Z87.891 Personal history of nicotine dependence

== ENCOUNTER 2018-03-17 13:01 | Emergency (ER) | payer OTHER ==
[~2018-03-17] VITALS: Ht 177.8 cm; Wt 95.6 kg
[~2018-03-17 13:01] MED LIST changes: +ALBINS INH; +CEFA500C2 PO; -CYCL10TA6 PO; +CYCL5TAB PO; +CYM/30 PO; -DULO-24 PO; +ENOX100I SQ; -LOVENOX TEACHING KIT SCH; +PROC10TA PO; -PROC1TAB5 PO; -RIVA1TAB4 PO
[2018-03-17 13:06] VITALS: TEMP 36.9; Ht 177.8 cm; Wt 95.6 kg
[2018-03-17] MEDS ORDERED: SODIUM CHLORIDE 0.9% 1000ML 1,000 ML IV STA (13:22)
[2018-03-17] MEDS ORDERED: HYDROmorphone INJ 1 MG/ML SYR IV STA (13:22)
[2018-03-17 13:43] VITALS: O2SAT 95
--- NOTE | 2018-03-17 13:44 | EMERGENCY ROOM VISIT NOTE ---
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 Patient states that the pain has gotten progressively worse, has been constant, radiates into the upper back, worse with movement, better with rest and heat, unrelieved with her prescription pain medications of MS Contin and Dilaudid, 07/06. She denies any injury to the area. She states that she has had several bony lesions and masses secondary to her Quinn sarcoma. She reports about one month ago she had a large mass removed out of the right side of her chest wall with a partial pneumonectomy, and removal of ribs 5 through 8 and mesh placement. She states that she has an appointment with her oncologist at [facility] in [place] tomorrow, and she is supposed to start radiation soon. She is not currently on chemotherapy. She denies any symptoms of fevers or chills, chest pain, shortness of breath, dizziness or syncope, cough, hemoptysis, numbness/tingling or weakness of the extremities, abdominal pain, back pain, nausea or vomiting, bowel or bladder dysfunction, abnormal bleeding, or unusual rash. REVIEW OF SYSTEMS: A complete 10 point review of systems was reviewed with the patient with pertinent positives and negatives as per history of present illness. All else were negative. PAST MEDICAL HISTORY: Reviewed in chart, see problem list below. SOCIAL HISTORY: Lives at home. She denies tobacco use. ALLERGIES: Reviewed in chart, see below. PHYSICAL EXAM: CONSTITUTIONAL: Pleasant and cooperative. No acute distress, but appears uncomfortable and in pain. Mildly dehydrated, but otherwise well appearing and well nourished. HEENT: Normocephalic, atraumatic. Pupils equal, round and reactive to light, EOMI. TMs normal. Pharynx normal. Tacky mucous membranes. NECK: Supple, full active range of motion without discomfort. RESPIRATORY: Clear to auscultation bilaterally with no wheezing, crackles, rhonchi or stridor. Equal expansion bilaterally. CARDIOVASCULAR: Regular rate and rhythm with no murmurs, rubs or gallops. Normal peripheral perfusion. No edema. GASTROINTESTINAL: Soft, nontender, nondistended. No palpable masses or HSM. Bowel sounds present in all quadrants. MUSCULOSKELETAL: There is exquisite tenderness with palpation over the left mid and proximal clavicle. There is no ecchymosis, swelling, or palpable crepitus. Deformity of the left hand/wrist, with minimal use of the left hand/fingers ( patient states chronic from injury 10 years ago). INTEGUMENTARY: No rash or other significant dermatologic conditions noted. NEUROLOGIC: Alert and oriented X 4 with normal affect. Cranial nerves II-XII grossly intact, no facial droop. No pronator drift. No focal neurologic deficits noted. Normal speech. ED COURSE AND MEDICAL DECISION MAKING: CC: Patient presenting with complaint of left clavicle pain DIFFERENTIAL DIAGNOSIS: Includes, but not limited to contusion, clavicle fracture, mass or mass-effect, PE, pleural effusion, pulmonary edema, pneumonia , among others. INTERPRETATION OF LABS: No leukocytosis, anemia (consistent with baseline), no significant electrolyte abnormalities, normal renal function, normal liver enzymes and lipase. Coagulation factors within normal limits. Serum negative. IMAGING: CHEST CTA for PULMONARY ARTERIES CT DOSE: 559.33 mGy.cm HISTORY: Left upper chest pain. TECHNIQUE: Multiaxial CT images of the chest were performed following the intravenous administration of contrast to evaluate the pulmonary arteries. Maximal intensity projection images were also obtained. A dose lowering technique was utilized adhering to the principles of ALARA. COMPARISON STUDY: PET CT 01/14/2018. Chest CTA 11/18/2017. FINDINGS: Normal caliber thoracic aorta with no evidence for dissection. The majority of the segmental and subsegmental pulmonary arteries are not well evaluated due to the streak artifact the patient's overlapping arms and motion artifact. However, no definite filling defects identified within the pulmonary arteries to suggest pulmonary embolus. Trace bilateral pleural effusions. No pericardial effusion. Mild right paratracheal and prevascular lymphadenopathy. There are also a few subcentimeter anterior mediastinal lymph nodes which are new from the prior study. This is concerning for metastatic disease. Dominant right peritracheal lymph node measures 12 mm. The visualized liver, spleen, left adrenal gland are unremarkable. The right adrenal gland is not visualized on this study. There is a low-density 14 x 9 mm pleural-based nodule within the medial to the left lower lobe in image 133. This could represent a small focus of loculated fluid or a metastatic deposit. There is abnormal soft tissue thickening with destruction of the right anterior sixth rib. This area soft tissue thickening surrounding the sixth rib measures 4.9 x 2.2 cm. This is concerning for a metastatic focus. This results in mass effect along the right hepatic lobe. Interval resection of multiple right lateral ribs. Postoperative changes within the right lung apex. Consolidation and traction bronchiectasis within the right lung apex persists. This favors posttreatment/radiation change. There is also persistent consolidation surrounding the right hilum which may also represent posttreatment changes. There is a new 5.0-3.4 cm pleural-based mass along the lateral to the right mid hemithorax. This is adjacent to the suture material is concerning for recurrent/metastatic disease. Trace gas and fluid within the right pleural space laterally which may be due to residual postoperative change. There is a new 5 mm nodule within the left upper lobe on image 177 with surrounding groundglass density. Small focal patchy densities within the superior segment of the left lower lobe posteriorly on image 153. This favors mild inflammatory/infectious change. A right Port-A-Cath terminates in the right atrium. Minimal fat stranding anterior to the manubrium. This is of uncertain clinical significance. There is also subtle cortical destruction with surrounding soft tissue thickening within the right anterior fourth rib best seen on image 99. IMPRESSION: 1. No evidence for pulmonary embolus with limitations as described above. 2. Interval resection of the right rib mass seen on the prior PET/CT. However, there is now a 5.0 x 3.4 cm pleural-based mass along the lateral aspect of the right mid hemithorax adjacent to the suture material. This is concerning for recurrent/metastatic disease. There is also an ill-defined soft tissue abnormality within the right anterior chest wall surrounding the right anterior sixth rib which measures 4.9 x 2.6 cm. This results in destruction of the right anterior sixth rib is also concerning for a metastatic focus. Probable additional metastatic focus surrounding the right anterior fourth rib. 3. There is a new 5 mm nodule within the left upper lobe with surrounding groundglass density. This could represent metastatic disease or inflammatory/infectious change. 4. Interval development of mediastinal lymphadenopathy concerning for metastatic disease. 5. Minimal fat stranding anterior to the manubrium. This is of uncertain clinical significance. 6. Additional findings as described above. EKG: Shows sinus tachycardia with a rate of 111 bpm, no acute ischemic changes, no significant change compared to previous EKG from 01/29/2018 by my interpretation. MEDICATION RECONCILIATION: I attest that I have personally reviewed the patient 's current medication list. INITIAL VITAL SIGNS REVIEW: I reviewed the patient's initial vital signs and interpret them as follows: T: Afebrile; BP: Normotensive; HR: Tachycardic; RR : Within normal limits; Pulse Ox: Within normal limits on room air. Blood pressure screening: The patient was found to have normal blood pressure on screening and does not require follow-up for repeat blood pressure check. SUMMARY: Patient was evaluated at bedside, history and physical exam performed. Patient is alert and oriented, in no acute distress but does appear to be in pain, resting in the stretcher. There is exquisite tenderness with palpation over the left clavicle and anterior chest wall, but no ecchymosis, swelling, or crepitus palpated. I discussed imaging with the patient, she requested a CT scan of the chest rather than x-rays, stating she has not had a scan in a while. Orders were placed at bedside for labs, IV fluids for hydration, IV Dilaudid for pain, CT chest to evaluate for mass and to rule out PE given her history of previous PE. Patient discussed with Dr. Vences, who agrees with my assessment and plan. Labs and imaging reviewed as above. CT imaging findings for new pulmonary nodule noted in the left upper lobe, I suspect this may be the cause of her pain. No acute findings on CT imaging to indicate a need for admission at this time. Patient reassessed multiple times throughout ED stay, she has remained stable, and reports her pain is slightly improved after the IV Dilaudid, and tachycardia is downtrending with IV fluids. Patient states that she does have an appointment tomorrow with her oncologist in [place], encouraged her to keep this appointment. The disc of her CT imaging from today was provided to her to take to her appointment. Patient was updated on all results and plan for discharge, she was encouraged to keep all of her upcoming follow-up appointments. Patient was also given strict return precautions should her symptoms worsen, she verbalized understanding. Patient was discharged home in stable condition and ambulatory. 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 (3) Hx pulmonary embolism Status: Chronic (4) Left Hand Surgery Status: Resolved (5) Lung biopsy Status: Resolved (6) Open wound of left wrist Permanent Comment: follows with wound clinic Status: Chronic (7) Tonsillectomy Status: Resolved Current/Historical Medications Scheduled Albuterol Sulf (Albuterol Sulfate), 1 VIAL INH Q4H Cefadroxil (Duricef), 500 MG PO BID Cyclobenzaprine Hcl (Flexeril), 5 MG PO TID Duloxetine HCl (Cymbalta), 1 CAP PO DAILY Gabapentin (Neurontin), 300 MG PO TID Levonorgestrel & Eth Estradiol (Falmina), 1 TAB PO DAILY Levothyroxine Sodium (Levothyroxine Sodium), 88 MCG PO DAILY Naloxone HCl (Naloxone HCl), 1 DOSE INJ UD Ondasetron Odt (Zofran Odt), 4 MG SL Q6H Polyethylene Glycol 3350 (Miralax), 17 GM PO DAILY Rivaroxaban (Xarelto), 20 MG PO DAILY Scheduled PRN Hydromorphone Hcl (Dilaudid), 4 MG PO for Pain Morphine Sulfate Ir (Morphine Sulfate Ir), 15 MG PO for Pain Prochlorperazine Maleate (Compazine), 10 MG PO Q6 PRN for Nausea Allergies Coded Allergies: Sulfa Antibiotics (Verified Allergy, Unknown, UNKNOWN, 03/17/18) Vital Signs Date Time Temp Pulse Resp B/P (MAP) Pulse Ox O2 Delivery O2 Flow Rate FiO2 03/17/18 16:10 91 18 110/69 93 Room Air 03/17/18 14:54 102 18 113/70 93 Room Air 03/17/18 13:45 117 03/17/18 13:43 95 Room Air 03/17/18 13:43 95 Room Air 03/17/18 13:06 36.9 126 20 132/78 94 Room Air Laboratory Results 03/17/18 13:40 Red Blood Count 3.32, Mean Corpuscular Volume 90.7, Mean Corpuscular Hemoglobin 28.0, Mean Corpuscular Hemoglobin Concent 30.9, Mean Platelet Volume 8.7, Neutrophils (%) (Auto) 75.0, Lymphocytes (%) (Auto) 12.9, Monocytes (%) (Auto) 7.3, Eosinophils (%) (Auto) 4.6, Basophils (%) (Auto) 0.1, Neutrophils # (Auto) 5.67, Lymphocytes # (Auto) 0.98, Monocytes # (Auto) 0.55, Eosinophils # (Auto) 0.35, Basophils # (Auto) 0.01 03/17/18 13:40 Test 03/17/18 13:40 White Blood Count 7.57 K/uL (4.8-10.8) Red Blood Count 3.32 M/uL (4.2-5.4) Hemoglobin 9.3 g/dL (12.0-16.0) Hematocrit 30.1 % (37-47) Mean Corpuscular Volume 90.7 fL (80-100) Mean Corpuscular Hemoglobin 28.0 pg (25-34) Mean Corpuscular Hemoglobin Concent 30.9 g/dl (32-36) Platelet Count 242 K/uL (130-400) Mean Platelet Volume 8.7 fL (7.4-10.4) Neutrophils (%) (Auto) 75.0 % Lymphocytes (%) (Auto) 12.9 % Monocytes (%) (Auto) 7.3 % Eosinophils (%) (Auto) 4.6 % Basophils (%) (Auto) 0.1 % Neutrophils # (Auto) 5.67 K/uL (1.4-6.5) Lymphocytes # (Auto) 0.98 K/uL (1.2-3.4) Monocytes # (Auto) 0.55 K/uL (0.11-0.59) Eosinophils # (Auto) 0.35 K/uL (0-0.5) Basophils # (Auto) 0.01 K/uL (0-0.2) RDW Standard Deviation 52.8 fL (36.4-46.3) RDW Coefficient of Variation 15.7 % (11.5-14.5) Immature Granulocyte % (Auto) 0.1 % Immature Granulocyte # (Auto) 0.01 K/uL (0.00-0.02) Prothrombin Time 11.0 SECONDS (9.0-12.0) Prothromb Time International Ratio 1.0 (0.9-1.1) Activated Partial Thromboplast Time 31.0 SECONDS (21.0-31.0) Partial Thromboplastin Ratio 1.2 Anion Gap 6.0 mmol/L (3-11) Est Creatinine Clear Calc Drug Dose 149.3 ml/min Estimated GFR () 135.4 Estimated GFR (Non- 116.8 BUN/Creatinine Ratio 13.5 (10-20) Calcium Level 9.0 mg/dl (8.5-10.1) Total Bilirubin 0.2 mg/dl (0.2-1) Direct Bilirubin < 0.1 mg/dl (0-0.2) Aspartate Amino Transf (AST/SGOT) 13 U/L (15-37) Alanine Aminotransferase (ALT/SGPT) 11 U/L (12-78) Alkaline Phosphatase 110 U/L (45-117) Total Protein 7.1 gm/dl (6.4-8.2) Albumin 2.7 gm/dl (3.4-5.0) Lipase 62 U/L (73-393) Human Chorionic Gonadotropin, Qual NEG (NEG) Medications Administered Medications (Trade) Dose Ordered Sig/Emily Route Start Time Stop Time Status Last Admin Dose Admin Hydromorphone HCl (Dilaudid Inj) 1 mg NOW STAT IV 03/17/18 13:22 03/17/18 13:30 DC 03/17/18 13:47 1 MG Sodium Chloride 1,000 ml @ 999 mls/hr Q1H1M STAT IV 03/17/18 13:22 03/17/18 14:22 DC 03/17/18 13:46 999 MLS/HR Departure Information Impression Primary Impression: Pain of left clavicle Additional Impression: Quinn's sarcoma of bone Dispostion Home / Self-Care Condition GOOD Referrals Dandy Palmer D.O. (PCP) Patient Instructions My [facility] Additional Instructions You have been evaluated and treated in the emergency apartment today for your left clavicle pain. CT imaging today does note a new 5 mm nodule in the left upper portion of your lungs, which may be the cause of your pain. You have been provided with a disc of your CT scan images to take with you to your appointment. Please keep your scheduled appointment tomorrow with your oncologist to further address your symptoms. You may wear the sling as needed for comfort. Continue to use ice and heat to the area for pain. Continue to use your prescribed pain medications as needed for pain. Please return to the emergency department for any worsening symptoms, including severe chest pain, difficulty breathing or inability to catch her breath, coughing up blood, severe dizziness or passing out, fevers/chills, or any other concerns. Work Instructions Return To Work: 2 days Problem Qualifiers
[2018-03-17] MEDS ORDERED: OPTIRAY 320 IV PRN (13:45)
[2018-03-17] MEDS ORDERED: HYDR4TAB2 PO (13:56)
[2018-03-17] MEDS ORDERED: MORP15TA PO (13:56)
[2018-03-17] MEDS ORDERED: GABA-113 PO (13:56)
[2018-03-17] MEDS ORDERED: POLY335019 PO (13:56)
[2018-03-17] MEDS ORDERED: NLXI4X INJ (13:56)
[2018-03-17] MEDS ORDERED: RIVA1TAB4 PO (13:56)
[2018-03-17 13:57] LABS: BASO % 0.1 %; BASO ABS # 0.01 K/uL (0-0.2); EOS % 4.6 %; EOS ABS # 0.35 K/uL (0-0.5); HEMATOCRIT 30.1 % (37-47); HEMOGLOBIN 9.3 g/dL (12.0-16.0); IG# 0.01 K/uL (0.00-0.02); LYMPH % 12.9 %; LYMPH ABS # 0.98 K/uL (1.2-3.4); MEAN CELL VOLUME 90.7 fL (80-100); MEAN CORPUSCULAR HGB CONC 30.9 g/dl (32-36); MEAN PLATELET VOLUME 8.7 fL (7.4-10.4); MONO % 7.3 %; MONO ABS # 0.55 K/uL (0.11-0.59); NEUT ABS # 5.67 K/uL (1.4-6.5); PLATELET COUNT 242 K/uL (130-400); RED CELL DISTRIBUTION WIDTH CV 15.7 % (11.5-14.5); RED CELL DISTRIBUTION WIDTH SD 52.8 fL (36.4-46.3); WHITE BLOOD COUNT 7.57 K/uL (4.8-10.8)
[2018-03-17 14:18] LABS: ALBUMIN 2.7 gm/dl (3.4-5.0); ALKALINE PHOSPHATASE 110 U/L (45-117); ALT/SGPT 11 U/L (12-78); AST/SGOT 13 U/L (15-37); BLOOD UREA NITROGEN 9 mg/dl (7-18); CARBON DIOXIDE 28 mmol/L (21-32); CREATININE 0.69 mg/dl (0.60-1.20); GLUCOSE 94 mg/dl (70-99); LIPASE 62 U/L (73-393); POTASSIUM 3.7 mmol/L (3.5-5.1); SODIUM 138 mmol/L (136-145); TOTAL PROTEIN 7.1 gm/dl (6.4-8.2)
--- NOTE | 2018-03-17 15:08 | DIAGNOSTIC IMAGING REPORT ---
CHEST CTA for PULMONARY ARTERIES CT DOSE: 559.33 mGy.cm HISTORY: Left upper chest pain. TECHNIQUE: Multiaxial CT images of the chest were performed following the intravenous administration of contrast to evaluate the pulmonary arteries. Maximal intensity projection images were also obtained. A dose lowering technique was utilized adhering to the principles of ALARA. COMPARISON STUDY: PET CT 01/14/2018. Chest CTA 11/18/2017. FINDINGS: Normal caliber thoracic aorta with no evidence for dissection. The majority of the segmental and subsegmental pulmonary arteries are not well evaluated due to the streak artifact the patient's overlapping arms and motion artifact. However, no definite filling defects identified within the pulmonary arteries to suggest pulmonary embolus. Trace bilateral pleural effusions. No pericardial effusion. Mild right paratracheal and prevascular lymphadenopathy. There are also a few subcentimeter anterior mediastinal lymph nodes which are new from the prior study. This is concerning for metastatic disease. Dominant right peritracheal lymph node measures 12 mm. The visualized liver, spleen, left adrenal gland are unremarkable. The right adrenal gland is not visualized on this study. There is a low-density 14 x 9 mm pleural-based nodule within the medial to the left lower lobe in image 133. This could represent a small focus of loculated fluid or a metastatic deposit. There is abnormal soft tissue thickening with destruction of the right anterior sixth rib. This area soft tissue thickening surrounding the sixth rib measures 4.9 x 2.2 cm. This is concerning for a metastatic focus. This results in mass effect along the right hepatic lobe. Interval resection of multiple right lateral ribs. Postoperative changes within the right lung apex. Consolidation and traction bronchiectasis within the right lung apex persists. This favors posttreatment/radiation change. There is also persistent consolidation surrounding the right hilum which may also represent posttreatment changes. There is a new 5.0-3.4 cm pleural-based mass along the lateral to the right mid hemithorax. This is adjacent to the suture material is concerning for recurrent/metastatic disease. Trace gas and fluid within the right pleural space laterally which may be due to residual postoperative change. There is a new 5 mm nodule within the left upper lobe on image 177 with surrounding groundglass density. Small focal patchy densities within the superior segment of the left lower lobe posteriorly on image 153. This favors mild inflammatory/infectious change. A right Port-A-Cath terminates in the right atrium. Minimal fat stranding anterior to the manubrium. This is of uncertain clinical significance. There is also subtle cortical destruction with surrounding soft tissue thickening within the right anterior fourth rib best seen on image 99. IMPRESSION: 1. No evidence for pulmonary embolus with limitations as described above. 2. Interval resection of the right rib mass seen on the prior PET/CT. However, there is now a 5.0 x 3.4 cm pleural-based mass along the lateral aspect of the right mid hemithorax adjacent to the suture material. This is concerning for recurrent/metastatic disease. There is also an ill-defined soft tissue abnormality within the right anterior chest wall surrounding the right anterior sixth rib which measures 4.9 x 2.6 cm. This results in destruction of the right anterior sixth rib is also concerning for a metastatic focus. Probable additional metastatic focus surrounding the right anterior fourth rib. 3. There is a new 5 mm nodule within the left upper lobe with surrounding groundglass density. This could represent metastatic disease or inflammatory/infectious change. 4. Interval development of mediastinal lymphadenopathy concerning for metastatic disease. 5. Minimal fat stranding anterior to the manubrium. This is of uncertain clinical significance. 6. Additional findings as described above. Electronically signed by: Odell Aviles M.D. 03/17/2018 3:06 PM Dictated Date/Time: 03/17/2018 2:42 PM
[2018-03-17 16:10] VITALS: BP 110/69; PULSE 91; O2SAT 93
== END 2018-03-17 16:45 | disposition home or self-care (01) ==
LOC: C.EDB 13:02 → C.EDC 16:45
DX: M25.512 Pain in left shoulder (principal); C41.9 Malignant neoplasm of bone and articular cartilage, unspecified; Z86.711 Personal history of pulmonary embolism; Z79.01 Long term (current) use of anticoagulants; Z79.899 Other long term (current) drug therapy